=== PATIENT | female | born 1980 | race Caucasian/White ===

== ENCOUNTER 2020-09-20 19:59 | Inpatient (IN) ==
[2020-09-20 20:16] VITALS: BMI 21.2
[2020-09-20] MEDS ORDERED: TORADOL 60 MG VIAL IM ONE (21:13)
[2020-09-20] MEDS ORDERED: ZOFRAN INJ 4 MG VIAL IM ONE (21:13)
[2020-09-20] MEDS ORDERED: LEVSIN/MAALOX/LIDOC VISC PO ONE (21:13)
[2020-09-20] MEDS ORDERED: TORADOL 30 MG VIAL IVP ONE (21:16)
[2020-09-20] MEDS ORDERED: LEVSIN/MAALOX/LIDOC VISC ONE (21:17)
[2020-09-20] MEDS ORDERED: ZOFRAN INJ 4 MG VIAL ONE ×2 (21:17→21:53)
[2020-09-20] MEDS ORDERED: TORADOL 30 MG VIAL ONE (21:17)
[2020-09-20] MEDS ORDERED: ZOFRAN INJ 4 MG VIAL IVP ONE ×2 (21:17→21:49)
[2020-09-20] MEDS ORDERED: PROTONIX INJ 40 MG VIAL IVP ONE (21:50)
[2020-09-20] MEDS ORDERED: NS 1000 ML 1,000 ML ONE (21:53)
[2020-09-20] MEDS ORDERED: PROTONIX INJ 40 MG VIAL ONE (21:53)
[2020-09-20] MEDS ORDERED: NS 1000 ML 1,000 ML IV ONE (22:02)
[2020-09-20 22:10] LABS: BASOPHILS % (AUTO) 0.1 % (0.2-1.0); HEMATOCRIT 46.8 % (36.0-47.0); HEMOGLOBIN 16.2 g/dL (12.0-16.0); LYMPHOCYTES # (AUTO) 0.4 X10^3/uL (1.3-2.9); LYMPHOCYTES % (AUTO) 3.7 % (21.0-51.0); MEAN CORPUSCULAR HEMOGLOBIN 36.1 pg (27.0-34.0); MEAN CORPUSCULAR HGB CONC 34.7 g/dL (33.0-35.0); MEAN CORPUSCULAR VOLUME 104.1 fL (80.0-100.0); MEAN PLATELET VOLUME 8.5 fL (7.4-11.0); MONOCYTES # (AUTO) 0.5 x10^3/uL (0.3-0.8); MONOCYTES % (AUTO) 5.3 % (0.0-13.0); NEUTROPHILS # (AUTO) 9.3 x10^3/uL (2.2-4.8); NEUTROPHILS % (AUTO) 90.9 % (42.0-75.0); PLATELET COUNT 198 X10^3/uL (150.0-450.0); RED BLOOD COUNT 4.49 X10^6/uL (3.5-5.4); RED CELL DISTRIBUTION WIDTH 11.9 % (11.6-16.5); WHITE BLOOD COUNT 10.3 X10^3/uL (3.6-10.0)
[2020-09-20 22:19] LABS: ALANINE AMINOTRANSFERASE 50 Units/L (12-78); ALKALINE PHOSPHATASE 95 Units/L (46-116); AMYLASE 66 Units/L (25-115); ASPARTATE AMINO TRANSFERASE 60 Units/L (15-37); BLOOD UREA NITROGEN 28 mg/dL (7-18); CALCIUM 9.8 mg/dL (8.5-10.1); CHLORIDE 93 mmol/L (98-107); COR NA(FOR HYPERGLY) 134 mmol/L (136-145); CREATININE 1.23 mg/dL (0.55-1.02); LIPASE 430 Units/L (73-393); SODIUM 133 mmol/L (136-145); eGFR NON BLACK RACES 52 (>60)
[2020-09-20 22:30] LABS: CARBON DIOXIDE 9.4 mmol/L (21-32)
[2020-09-20 22:38] LABS: BAND NEUTROPHILS % 1 % (0-10); PLATELET MORPHOLOGY COMMENT NORMAL (NORMAL)
--- NOTE | 2020-09-20 23:12 | DR.HEADACH ---
HPI Time Seen Time Seen by Provider: 09/20/20 21:13 Primary Care Physician Primary Care Physician: KOSTA ERICKSON Complaint/Symptoms Chief Complaint:: PT STATES THAT SHE STARTED SATURDAY WITH A MIGRAINE AND THEN SHE STARTED VOMITING AND HAS BEEN ABLE TO KEEP ANY MEDICATIONS DOWN. PT ALSO STATES THAT HER MUSCLES HURT AND HER BACK HURTS FROM VOMITING. PT STATES THAT HER EYES ARE ALSO SENSITIVE TO LIGHT. DENIES HISTORY OF MIGRAINES. COVID-19 Coronavirus risk:travel/contact w/high risk person: No Has patient experienced Coronavirus symptoms: No Source History Provided: Patient Timing Onset of Chief Complaint: 09/19/20 Location Headache Location: Generalized Severity Headache Severity: Severe PMH PMH Past Medical History: Yes Past Medical History: Anxiety, Depression and Hypertension Past Medical History Comment: NEUROPATHY Past Surgical History: Yes Surgical History: Other Past Surgical History Comment: LUMPECTOMY FROM BILATERAL BREAST Family History History of Family Medical Conditions: Yes Family Medical History: Hypertension Social History Does patient currently use any type of tobacco product: Yes (VAPE) Have you used tobacco products in the last 12 months: Yes (VAPE) Type of Tobacco Use: Smokeless Does any household member use tobacco: Yes Alcohol Use: Occasionally Do you use any recreational Drugs:: No Lives With: Mom and Family Lives Where: Home Travel Risk Coronavirus risk:travel/contact w/high risk person: No Has patient experienced Coronavirus symptoms: No Infectious screening In the last 2 months have you had wt loss of >10#?: NO Have you had fever, night sweats or hemotysis?: No Have you traveled outside the country in the last 6 months?: No Isolation: Standard PE Vital Signs Vitals: Temperature 97.8 F Pulse Rate [Apical] 122 Pulse Rate 125 Respiratory Rate 24 Blood Pressure [Left Arm] 139/97 Blood Pressure 172/113 O2 Sat by Pulse Oximetry 100 COURSE Reevaluation 1st: Unchanged (continues to have N/V and abdominal pain. ) Consultation Called: 23:21 Consultation Comments: Spoke with Dr. Sherman who accepts patient for admission. [facility] Labs Reviewed Laboratory Results Reviewed?: Yes Result Diagrams: 09/20/20 22:00 09/20/20 22:00 Laboratory: WBC 10.3 X10^3/uL (3.6-10.0) H 09/20/20 22:00 RBC 4.49 X10^6/uL (3.5-5.4) 09/20/20 22:00 Hgb 16.2 g/dL (12.0-16.0) H 09/20/20 22:00 Hct 46.8 % (36.0-47.0) 09/20/20 22:00 MCV 104.1 fL (80.0-100.0) H 09/20/20 22:00 MCH 36.1 pg (27.0-34.0) H 09/20/20 22:00 MCHC 34.7 g/dL (33.0-35.0) 09/20/20 22:00 RDW 11.9 % (11.6-16.5) 09/20/20 22:00 Plt Count 198 X10^3/uL (150.0-450.0) 09/20/20 22:00 Plt Count Comment Adequate (ADEQUATE) 09/20/20 22:00 MPV 8.5 fL (7.4-11.0) 09/20/20 22:00 Neut % (Auto) 90.9 % (42.0-75.0) H 09/20/20 22:00 Lymph % (Auto) 3.7 % (21.0-51.0) L 09/20/20 22:00 [place] % (Auto) 5.3 % (0.0-13.0) 09/20/20 22:00 Eos % (Auto) 0.0 % (0.9-2.9) L 09/20/20 22:00 Baso % (Auto) 0.1 % (0.2-1.0) L 09/20/20 22:00 Neut # (Auto) 9.3 x10^3/uL (2.2-4.8) H 09/20/20 22:00 Lymph # (Auto) 0.4 X10^3/uL (1.3-2.9) L 09/20/20 22:00 [place] # (Auto) 0.5 x10^3/uL (0.3-0.8) 09/20/20 22:00 Eos # (Auto) 0.0 x10^3/uL (0.0-0.2) 09/20/20 22:00 Baso # (Auto) 0.0 X10^3/uL (0.0-0.1) 09/20/20 22:00 Absolute Nucleated RBC 0.0 /100WBC 09/20/20 22:00 Total Counted 100 09/20/20 22:00 Neutrophils % (Manual) 86 % (39-76) H 09/20/20 22:00 Band Neutrophils % 1 % (0-10) 09/20/20 22:00 Lymphocytes % (Manual) 9 % (13-43) L 09/20/20 22:00 Monocytes % (Manual) 4 % (4-9) 09/20/20 22:00 Plt Morphology Comment Normal (NORMAL) 09/20/20 22:00 RBC Morphology Normal (NORMAL) 09/20/20 22:00 Sodium 133 mmol/L (136-145) L 09/20/20 22:00 Corrected Sodium 134 mmol/L (136-145) L 09/20/20 22:00 Potassium 5.1 mmol/L (3.5-5.1) 09/20/20 22:00 Chloride 93 mmol/L (98-107) L 09/20/20 22:00 Carbon Dioxide 9.4 mmol/L (21-32) L* 09/20/20 22:00 BUN 28 mg/dL (7-18) H 09/20/20 22:00 Creatinine 1.23 mg/dL (0.55-1.02) H 09/20/20 22:00 Est GFR (MDRD) Af Amer > 60 (>60) 09/20/20 22:00 Est GFR (MDRD) Non-Af 52 (>60) L 09/20/20 22:00 Glucose 138 mg/dL (65-99) H 09/20/20 22:00 Calcium 9.8 mg/dL (8.5-10.1) 09/20/20 22:00 Corrected Calcium TNP 09/20/20 22:00 Total Bilirubin 1.20 mg/dL (0.2-1.0) H 09/20/20 22:00 AST 60 Units/L (15-37) H 09/20/20 22:00 ALT 50 Units/L (12-78) 09/20/20 22:00 Alkaline Phosphatase 95 Units/L (46-116) 09/20/20 22:00 Total Protein 10.0 g/dL (6.4-8.2) H 09/20/20 22:00 Albumin 5.0 g/dL (3.4-5.0) 09/20/20 22:00 Globulin 5.0 g/dL (2.5-4.5) H 09/20/20 22:00 Albumin/Globulin Ratio 1.0 Ratio (1.1-2.1) L 09/20/20 22:00 Amylase 66 Units/L (25-115) 09/20/20 22:00 Lipase 430 Units/L (73-393) H 09/20/20 22:00 XRAY X-ray Results: HISTORY PT STATES THAT SHE STARTED SATURDAY WITH A MIGRAINE AND THEN SHE STARTED VOMITING AND HAS BEEN ABLE TO KEEP ANY MEDICATIONS DOWN STUDY ACUTE ABDOMEN SERIES COMPARISON None available TECHNIQUE AP supine and upright abdominal radiographs with chest radiography, 3 images. FINDINGS Gas and stool in non distended colon. No gross free air. No abnormal calcifications. No acute osseous abnormality. Lungs are clear of focal airspace disease. No cardiomegaly. No pneumothorax. No pleural effusion. IMPRESSION No acute intra-abdominal or intrathoracic abnormality detected. Electronically signed by: Genaro Lima (Sep 20, 2020 23:13:21) Opioid Opioid Risk Tool Age (Josué box if 16-45): Yes History of Preadolescent Sexual Abuse: No Total: 1 Total Score Risk Category: Low Risk Copyright: Antelmo DO predicting aberrant behaviors Diagnosis Discharge Problem: Acute pancreatitis Qualifiers: Pancreatitis type: unspecified pancreatitis type Acute pancreatitis complication: unspecified Qualified Code(s): K85.90 - Acute pancreatitis without necrosis or infection, unspecified
--- NOTE | 2020-09-20 23:15 | RAD ---
HISTORYPT STATES THAT SHE STARTED SATURDAY WITH A MIGRAINE AND THEN SHE STARTED VOMITING AND HAS BEEN ABLE TO KEEP ANY MEDICATIONS DOWNSTUDYACUTE ABDOMEN SERIESCOMPARISONNone availableTECHNIQUEAP supine and upright abdominal radiographs with chest radiography, 3 images.FINDINGSGas and stool in non distended colon.No gross free air.No abnormal calcifications.No acute osseous abnormality.Lungs are clear of focal airspace disease.No cardiomegaly.No pneumothorax.No pleural effusion.IMPRESSIONNo acute intra-abdominal or intrathoracic abnormality detected.Electronically signed by: Genaro Lima (Sep 20, 2020 23:13:21)
[2020-09-20] MEDS ORDERED: MORPHINE SULFATE INJ 2 MG INJ IVP PRN (23:28)
[2020-09-20 23:48] LABS: BILIRUBIN,URINE 1+ (NEGATIVE); BLOOD/HEMOGLOBIN,URINE 4+ (NEGATIVE); GLUCOSE, URINE NEGATIVE (NEGATIVE); KETONES,URINE 4+ (NEGATIVE); LEUKOCYTE ESTERASE ,URINE NEGATIVE (NEGATIVE); NITRITES,URINE NEGATIVE (NEGATIVE); PROTEIN,URINE 3+ (NEGATIVE); UROBILINOGEN,URINE 1+ (NORMAL)
[2020-09-20 23:54] LABS: APPEARANCE,URINE CLEAR (CLEAR); BACTERIA,URINE TRACE /HPF (NEGATIVE); COLOR,URINE DARK YELLOW (YELLOW); HYALINE CASTS, URINE FEW /LPF (NEGATIVE); RBC,URINE 20-30 /HPF (0-3); SQUAMOUS EPITHELIAL CELL,UR FEW /HPF (NEGATIVE)
[2020-09-21] MEDS ORDERED: DILAUDID INJ ONE ×2 (00:03→06:23)
[2020-09-21] MEDS ORDERED: NS 1000 ML 1,000 ML ONE ×2 (00:03→10:00)
[2020-09-21] MEDS: NS 1000 ML 1,000 ML IV SCH ×3 (00:10→20:26)
[2020-09-21] MEDS: DILAUDID INJ IVP PRN ×6 (00:11→20:24)
[2020-09-21] MEDS ORDERED: ZOFRAN INJ 4 MG VIAL ONE ×2 (02:32→07:51)
[2020-09-21] MEDS: ZOFRAN INJ 4 MG VIAL IVP PRN ×5 (02:39→22:36)
[2020-09-21] MEDS ORDERED: PHENERGAN INJ 25 MG IM ONE ×2 (02:39→02:41)
--- NOTE | 2020-09-21 03:33 | CT ---
PROCEDURE: CT Abdomen and Pelvis with Contrast .HISTORY: ACUTE PANCREATITIS .TECHNIQUE: Axial images were performed through the abdomen and pelvis with the administration of IV contrast with multiplanar reformations . Oral contrast was administered. Dose reduction techniques including Automated Exposure Control (AEC) and adjustment of mA and kV were utilized .COMPARISON: 11/11/2019.TECHNICAL QUALITY: Satisfactory .FINDINGS:Clear lung bases.Liver, spleen, adrenals, and pancreas show no significant abnormality. No evidence of acute pancreatitis, pseudocyst, or dilated pancreatic duct.Normal enhancement of the kidneys with no mass or obstruction.Normal biliary tract.No abdominal ascites or pneumoperitoneum.Mild atherosclerosis aorta.No lymphadenopathy.No bowel obstruction or inflammation and normal appendix right lower quadrant.Pelvis shows no masses or free fluid and unremarkable reproductive organs and urinary bladder.No acute bony abnormality.IMPRESSION:1. Normal pancreas.2. No other significant abnormality identified.Electronically signed by: Talib Marcum (Sep 21, 2020 03:30:58)
[2020-09-21] MEDS ORDERED: PROTONIX INJ 40 MG VIAL ONE (07:51)
[2020-09-21] MEDS: PROTONIX INJ 40 MG VIAL IVP SCH (08:49)
[2020-09-21 08:59] LABS: BASOPHILS % (AUTO) 0.4 % (0.2-1.0); EOSINOPHILS % (AUTO) 0.7 % (0.9-2.9); HEMOGLOBIN 14.1 g/dL (12.0-16.0); LYMPHOCYTES # (AUTO) 1.1 X10^3/uL (1.3-2.9); LYMPHOCYTES % (AUTO) 17.1 % (21.0-51.0); MEAN CORPUSCULAR HEMOGLOBIN 35.5 pg (27.0-34.0); MEAN CORPUSCULAR HGB CONC 34.5 g/dL (33.0-35.0); MEAN PLATELET VOLUME 8.4 fL (7.4-11.0); MONOCYTES # (AUTO) 0.8 x10^3/uL (0.3-0.8); MONOCYTES % (AUTO) 11.7 % (0.0-13.0); NEUTROPHILS # (AUTO) 4.5 x10^3/uL (2.2-4.8); NEUTROPHILS % (AUTO) 70.1 % (42.0-75.0); PLATELET COUNT 137 X10^3/uL (150.0-450.0); RED BLOOD COUNT 3.97 X10^6/uL (3.5-5.4); RED CELL DISTRIBUTION WIDTH 12.1 % (11.6-16.5); WHITE BLOOD COUNT 6.5 X10^3/uL (3.6-10.0)
[2020-09-21 09:09] LABS: ALANINE AMINOTRANSFERASE 37 Units/L (12-78); ALBUMIN 4.2 g/dL (3.4-5.0); ALKALINE PHOSPHATASE 77 Units/L (46-116); ASPARTATE AMINO TRANSFERASE 45 Units/L (15-37); BLOOD UREA NITROGEN 20 mg/dL (7-18); CARBON DIOXIDE 16.9 mmol/L (21-32); CHLORIDE 100 mmol/L (98-107); CREATININE 0.87 mg/dL (0.55-1.02); MAGNESIUM 1.8 mg/dL (1.7-2.9); SODIUM 136 mmol/L (136-145); TOTAL PROTEIN 8.4 g/dL (6.4-8.2); eGFR NON BLACK RACES > 60 (>60)
--- NOTE | 2020-09-21 09:52 | DR.H&P ---
H&P History & Physical for Day of: H&P Date: 09/21/20 Chief Complaint Chief Complaint: abdominal pain, nausea, vomiting Allergies Allergies Allergy/AdvReac Type Severity Reaction Status Date / Time No Known Drug Allergies Allergy Verified 11/11/19 17:33 History of Present Illness History of Present Illness: Ms. Abdi is a 40 y/o female with a PMH of neuropathy presented with intractable nausea, vomiting and abdominal pain. Her Sx started Saturday and continued to worsen over the day. She reports not being able to keep anything down and vomiting everything including water. She also has diffuse abdominal pain with radiation to the back. She reports having 3-4 alcoholic drinks on Saturday. She recently had U/S for her gallbladder done as outpatient and was told it was normal. She has had pancreatitis in the past and usually triggered by alcohol. Denies fever or chills. She reports having gastritis in the past but never had EGD or saw GI for anything. Denies sick contact at home or any known exposure. ED work-up Labs: WBC 10.3 Plt 168 Lipase elevated, CO2: 9.4 K: 5.1 Cr: 1.23 COVID-19 (-) AST 60 ALT 50 CTAP: normal pancreas, no acute process noted UA: negative for infection Patient was started on IV hydration, PPI, anti-emetics and pain control. She was kept NPO overnight. She states she still feels about the same, abdominal pain is worse when the pain medicine wears off. She would like to try some water or sprite. She has not had any vomiting overnight. Denies diarrhea. Plan: repeat CBC, CMP, Mag. Increase NS to 150cc/hr, continue PPI, zofran. Will add GI cocktail. Start clear liquid diet, advance as tolerated. Continue pain control with Dilaudid and morphine. Monitor AM labs. Replace electrolytes as needed. Past Medical History Past Medical History: Anxiety, Depression and Hypertension Past Surgical History Surgical History: Other Family History Family Medical History: Hypertension Social History Does patient currently use any type of tobacco product: Yes (vape) Have you used tobacco products in the last 12 months: Yes Type of Tobacco Use: Smokeless Does any household member use tobacco: Yes Alcohol Use: Heavy Drug Use: None Prescription drug monitoring program results: PDMP reviewed and no concerns identified Medications Home Medications: No Known Drug Allergies Allergy (Verified 11/11/19 17:33) CONTINUE taking the following medications gabapentin 300 mg PO TID 09/21/20 [History] Labs Result Diagrams: 09/21/20 08:41 09/21/20 08:41 Labs: Laboratory WBC 6.5 X10^3/uL (3.6-10.0) 09/21/20 08:41 RBC 3.97 X10^6/uL (3.5-5.4) 09/21/20 08:41 Hgb 14.1 g/dL (12.0-16.0) D 09/21/20 08:41 Hct 41.0 % (36.0-47.0) 09/21/20 08:41 MCV 103.0 fL (80.0-100.0) H 09/21/20 08:41 MCH 35.5 pg (27.0-34.0) H 09/21/20 08:41 MCHC 34.5 g/dL (33.0-35.0) 09/21/20 08:41 RDW 12.1 % (11.6-16.5) 09/21/20 08:41 Plt Count 137 X10^3/uL (150.0-450.0) L 09/21/20 08:41 Plt Count Comment Adequate (ADEQUATE) 09/20/20 22:00 MPV 8.4 fL (7.4-11.0) 09/21/20 08:41 Neut % (Auto) 70.1 % (42.0-75.0) 09/21/20 08:41 Lymph % (Auto) 17.1 % (21.0-51.0) L 09/21/20 08:41 [place] % (Auto) 11.7 % (0.0-13.0) 09/21/20 08:41 Eos % (Auto) 0.7 % (0.9-2.9) L 09/21/20 08:41 Baso % (Auto) 0.4 % (0.2-1.0) 09/21/20 08:41 Neut # (Auto) 4.5 x10^3/uL (2.2-4.8) 09/21/20 08:41 Lymph # (Auto) 1.1 X10^3/uL (1.3-2.9) L 09/21/20 08:41 [place] # (Auto) 0.8 x10^3/uL (0.3-0.8) 09/21/20 08:41 Eos # (Auto) 0.0 x10^3/uL (0.0-0.2) 09/21/20 08:41 Baso # (Auto) 0.0 X10^3/uL (0.0-0.1) 09/21/20 08:41 Absolute Nucleated RBC 0.1 /100WBC 09/21/20 08:41 Total Counted 100 09/20/20 22:00 Neutrophils % (Manual) 86 % (39-76) H 09/20/20 22:00 Band Neutrophils % 1 % (0-10) 09/20/20 22:00 Lymphocytes % (Manual) 9 % (13-43) L 09/20/20 22:00 Monocytes % (Manual) 4 % (4-9) 09/20/20 22:00 Plt Morphology Comment Normal (NORMAL) 09/20/20 22:00 RBC Morphology Normal (NORMAL) 09/20/20 22:00 Sodium 136 mmol/L (136-145) 09/21/20 08:41 Corrected Sodium TNP 09/21/20 08:41 Potassium 4.1 mmol/L (3.5-5.1) 09/21/20 08:41 Chloride 100 mmol/L (98-107) 09/21/20 08:41 Carbon Dioxide 16.9 mmol/L (21-32) L 09/21/20 08:41 BUN 20 mg/dL (7-18) H 09/21/20 08:41 Creatinine 0.87 mg/dL (0.55-1.02) 09/21/20 08:41 Est GFR (MDRD) Af Amer > 60 (>60) 09/21/20 08:41 Est GFR (MDRD) Non-Af > 60 (>60) 09/21/20 08:41 Glucose 99 mg/dL (65-99) 09/21/20 08:41 Calcium 9.0 mg/dL (8.5-10.1) 09/21/20 08:41 Corrected Calcium TNP 09/21/20 08:41 Magnesium 1.8 mg/dL (1.7-2.9) 09/21/20 08:41 Total Bilirubin 0.90 mg/dL (0.2-1.0) 09/21/20 08:41 AST 45 Units/L (15-37) H 09/21/20 08:41 ALT 37 Units/L (12-78) 09/21/20 08:41 Alkaline Phosphatase 77 Units/L (46-116) 09/21/20 08:41 Total Protein 8.4 g/dL (6.4-8.2) H 09/21/20 08:41 Albumin 4.2 g/dL (3.4-5.0) 09/21/20 08:41 Globulin 4.2 g/dL (2.5-4.5) 09/21/20 08:41 Albumin/Globulin Ratio 1.0 Ratio (1.1-2.1) L 09/21/20 08:41 Amylase 66 Units/L (25-115) 09/20/20 22:00 Lipase 430 Units/L (73-393) H 09/20/20 22:00 Specimen Type Clean catch urine 09/20/20 23:38 Urine Color Dark yellow (YELLOW) 09/20/20 23:38 Urine Appearance Clear (CLEAR) 09/20/20 23:38 Urine pH 6.0 (5.0 - 8.0) 09/20/20 23:38 Ur Specific [place] 1.020 (1.000-1.030) 09/20/20 23:38 Urine Protein 3+ (NEGATIVE) 09/20/20 23:38 Urine Glucose (UA) Negative (NEGATIVE) 09/20/20 23:38 Urine Ketones 4+ (NEGATIVE) 09/20/20 23:38 Urine Occult Blood 4+ (NEGATIVE) 09/20/20 23:38 Urine Nitrite Negative (NEGATIVE) 09/20/20 23:38 Urine Bilirubin 1+ (NEGATIVE) 09/20/20 23:38 Urine Urobilinogen 1+ (NORMAL) 09/20/20 23:38 Ur Leukocyte Esterase Negative (NEGATIVE) 09/20/20 23:38 Urine RBC 20-30 /HPF (0-3) A 09/20/20 23:38 Urine WBC None seen /HPF (0-5) 09/20/20 23:38 Ur Squamous Epith Cells Few /HPF (NEGATIVE) 09/20/20 23:38 Urine Bacteria Trace /HPF (NEGATIVE) 09/20/20 23:38 Hyaline Casts Few /LPF (NEGATIVE) 09/20/20 23:38 Ur Culture Indicated? No/not indicated 09/20/20 23:38 SARS CoV-2 RNA Rapid JOHN Negative (NEGATIVE) 09/21/20 00:15 Review of Systems Constitutional: Weakness Eyes: No Symptoms Reported ENT: No Symptoms Reported Respiratory: No Symptoms Reported Cardiovascular: No Symptoms Reported Gastrointestinal: Nausea, Vomiting and Abdominal Pain Genitourinary: No Symptoms Reported Musculoskeletal: Back Pain Skin: No Symptoms Reported Neurological: No Symptoms Reported Physical Exam Vital Signs: Temperature 98.3 F Pulse Rate [Apical] 104 Pulse Rate 125 Respiratory Rate 20 Blood Pressure [Left Arm] 149/98 Blood Pressure 172/113 O2 Sat by Pulse Oximetry 100 Oriented: Normal Eyes: Normal Ear: Normal Nose: Normal Throat: Normal Respiratory: Clear Throughout Cardiovascular: Normal Auscultation: Bowel Sounds: Normal Tenderness: Diffuse, Epigastric, Periumbilical and Moderate Skin: Normal Musculoskeletal: Normal Psychiatric: Anxiety Mood Description: Appropriate Affect: Anxious Speech Pattern: Clear and Appropriate Assessment/Plan (1) Acute pancreatitis: Qualifiers: Acute pancreatitis complication: unspecified Pancreatitis type: unspecified pancreatitis type Qualified Code(s): K85.90 - Acute pancreatitis without necrosis or infection, unspecified Status: Acute (2) Nausea & vomiting: Qualifiers: Vomiting Intractability: non-intractable Vomiting type: unspecified Qualified Code(s): R11.2 - Nausea with vomiting, unspecified Status: Acute (3) Abdominal pain: Qualifiers: Abdominal location: right upper quadrant Qualified Code(s): R10.11 - Right upper quadrant pain Status: Acute (4) Metabolic acidosis: Status: Acute (5) Neuropathy: Status: Acute Review H&P Reviewed: Yes Patient was examined?: Yes
[2020-09-21] MEDS: NEURONTIN CAP 300 MG PO SCH ×3 (09:59→21:29)
[2020-09-21] MEDS: LEVSIN/MAALOX/LIDOC VISC PO PRN ×2 (11:31→20:21)
[2020-09-21] MEDS: FOLIC ACID TAB 1 MG PO SCH (15:15)
[2020-09-21] MEDS: NICOTINE PATCH TD SCH (21:50)
[2020-09-22] MEDS: DILAUDID INJ IVP PRN ×6 (00:07→23:10)
[2020-09-22] MEDS: ZOFRAN INJ 4 MG VIAL IVP PRN (04:07)
[2020-09-22] MEDS: NS 1000 ML 1,000 ML IV SCH ×4 (05:30→20:46)
[2020-09-22] MEDS: NEURONTIN CAP 300 MG PO SCH ×3 (05:31→21:00)
[2020-09-22 05:39] LABS: BASOPHILS % (AUTO) 0.3 % (0.2-1.0); EOSINOPHILS # (AUTO) 0.1 x10^3/uL (0.0-0.2); EOSINOPHILS % (AUTO) 2.7 % (0.9-2.9); HEMATOCRIT 36.1 % (36.0-47.0); HEMOGLOBIN 12.8 g/dL (12.0-16.0); LYMPHOCYTES # (AUTO) 1.4 X10^3/uL (1.3-2.9); LYMPHOCYTES % (AUTO) 27.5 % (21.0-51.0); MEAN CORPUSCULAR HGB CONC 35.3 g/dL (33.0-35.0); MEAN CORPUSCULAR VOLUME 101.9 fL (80.0-100.0); MEAN PLATELET VOLUME 8.9 fL (7.4-11.0); MONOCYTES # (AUTO) 0.5 x10^3/uL (0.3-0.8); MONOCYTES % (AUTO) 9.6 % (0.0-13.0); NEUTROPHILS % (AUTO) 59.9 % (42.0-75.0); PLATELET COUNT 109 X10^3/uL (150.0-450.0); RED BLOOD COUNT 3.54 X10^6/uL (3.5-5.4)
[2020-09-22 05:44] LABS: ALANINE AMINOTRANSFERASE 34 Units/L (12-78); ALBUMIN 3.8 g/dL (3.4-5.0); ALKALINE PHOSPHATASE 67 Units/L (46-116); ASPARTATE AMINO TRANSFERASE 50 Units/L (15-37); BLOOD UREA NITROGEN 14 mg/dL (7-18); CALCIUM 8.9 mg/dL (8.5-10.1); CARBON DIOXIDE 22.9 mmol/L (21-32); CHLORIDE 103 mmol/L (98-107); CREATININE 0.57 mg/dL (0.55-1.02); SODIUM 140 mmol/L (136-145); TOTAL PROTEIN 7.4 g/dL (6.4-8.2); eGFR NON BLACK RACES > 60 (>60)
[2020-09-22] MEDS ORDERED: DIFLUCAN PO SCH (09:00)
[2020-09-22] MEDS: FOLIC ACID TAB 1 MG PO SCH (09:25)
[2020-09-22] MEDS: PHENERGAN TAB 25 MG PO PRN ×2 (09:25→20:43)
[2020-09-22] MEDS: PEPCID 20 MG IV PREMIX* 20 MG/50 ML BAG IV SCH (09:25)
[2020-09-22] MEDS: PROTONIX INJ 40 MG VIAL IVP SCH (09:25)
[2020-09-22] MEDS: NICOTINE PATCH TD SCH (09:30)
[2020-09-22] MEDS: LEVSIN/MAALOX/LIDOC VISC PO PRN ×3 (09:32→23:09)
--- NOTE | 2020-09-22 10:16 | PCM.PROG ---
Progress Note Progress Note for Day of Date of Exam: 09/22/20 Subjective Subjective: Patient seen at bedside, no overnight events. She states she was able to drink some liquids yesterday but not much. She still had an episode of vomiting. She reports burning pain with eating in her stomach. Denies diarrhea. She states her abdominal pain is slightly better today. She would like to try a soft diet and see how she does. Denies fever or chills. Labs: K: 3.4 BUN/Cr: 14/0.57 CO2: 22 ASTS 50 ALT 34 Plt 109 Plan: will start Pepcid, add carafate and Magic mouthwash. Change Zofran to Phenergan. Start Diflucan for thrush. Replace K as per protocol. Start soft diet, advance as tolerated. Continue hydration. Continue pain control. Continue PPI and GI cocktail. Monitor AM labs and imaging. Past Medical Family Social History Past Med/Fam/Surg Hx: No changes since H&P Allergies: Allergies No Known Drug Allergies Allergy (Verified 11/11/19 17:33) Review of Systems ROS: No change since H&P Vital Signs and I&O's Vital Signs: Temperature 98.2 F Pulse Rate [Apical] 91 Pulse Rate 125 Respiratory Rate 20 Blood Pressure [Left Arm] 150/90 Blood Pressure 172/113 O2 Sat by Pulse Oximetry 100 Intake and Output: Intake & Output 09/19/20 09/20/20 09/21/20 09/22/20 23:59 23:59 23:59 23:59 Intake Total 2750 / 2750 50 / 50 Balance 2750 / 2750 50 / 50 Physical Exam Oriented: Normal Eyes: Normal Ear: Normal Nose: Normal Throat: Other (thrush noted on the tongue ) Respiratory: Normal Cardiovascular: Normal Auscultation: Bowel Sounds: Normal Tenderness: Diffuse, Epigastric, Periumbilical and Moderate Skin: Normal Musculoskeletal: Normal Psychiatric: Anxiety Mood Description: Appropriate Affect: Anxious Speech Pattern: Clear and Appropriate Laboratory and Diagnostics Result Diagrams: 09/22/20 04:22 09/22/20 04:22 Labs: Laboratory WBC 5.0 X10^3/uL (3.6-10.0) 09/22/20 04:22 RBC 3.54 X10^6/uL (3.5-5.4) 09/22/20 04:22 Hgb 12.8 g/dL (12.0-16.0) 09/22/20 04:22 Hct 36.1 % (36.0-47.0) 09/22/20 04:22 MCV 101.9 fL (80.0-100.0) H 09/22/20 04:22 MCH 36.0 pg (27.0-34.0) H 09/22/20 04:22 MCHC 35.3 g/dL (33.0-35.0) H 09/22/20 04:22 RDW 12.0 % (11.6-16.5) 09/22/20 04:22 Plt Count 109 X10^3/uL (150.0-450.0) L 09/22/20 04:22 Plt Count Comment Adequate (ADEQUATE) 09/20/20 22:00 MPV 8.9 fL (7.4-11.0) 09/22/20 04:22 Neut % (Auto) 59.9 % (42.0-75.0) 09/22/20 04:22 Lymph % (Auto) 27.5 % (21.0-51.0) 09/22/20 04:22 [place] % (Auto) 9.6 % (0.0-13.0) 09/22/20 04:22 Eos % (Auto) 2.7 % (0.9-2.9) 09/22/20 04:22 Baso % (Auto) 0.3 % (0.2-1.0) 09/22/20 04:22 Neut # (Auto) 3.0 x10^3/uL (2.2-4.8) 09/22/20 04:22 Lymph # (Auto) 1.4 X10^3/uL (1.3-2.9) 09/22/20 04:22 [place] # (Auto) 0.5 x10^3/uL (0.3-0.8) 09/22/20 04:22 Eos # (Auto) 0.1 x10^3/uL (0.0-0.2) 09/22/20 04:22 Baso # (Auto) 0.0 X10^3/uL (0.0-0.1) 09/22/20 04:22 Absolute Nucleated RBC 0.0 /100WBC 09/22/20 04:22 Total Counted 100 09/20/20 22:00 Neutrophils % (Manual) 86 % (39-76) H 09/20/20 22:00 Band Neutrophils % 1 % (0-10) 09/20/20 22:00 Lymphocytes % (Manual) 9 % (13-43) L 09/20/20 22:00 Monocytes % (Manual) 4 % (4-9) 09/20/20 22:00 Plt Morphology Comment Normal (NORMAL) 09/20/20 22:00 RBC Morphology Normal (NORMAL) 09/20/20 22:00 Sodium 140 mmol/L (136-145) 09/22/20 04:22 Corrected Sodium TNP 09/22/20 04:22 Potassium 3.4 mmol/L (3.5-5.1) L 09/22/20 04:22 Chloride 103 mmol/L (98-107) 09/22/20 04:22 Carbon Dioxide 22.9 mmol/L (21-32) 09/22/20 04:22 BUN 14 mg/dL (7-18) 09/22/20 04:22 Creatinine 0.57 mg/dL (0.55-1.02) 09/22/20 04:22 Est GFR (MDRD) Af Amer > 60 (>60) 09/22/20 04:22 Est GFR (MDRD) Non-Af > 60 (>60) 09/22/20 04:22 Glucose 86 mg/dL (65-99) 09/22/20 04:22 Calcium 8.9 mg/dL (8.5-10.1) 09/22/20 04:22 Corrected Calcium TNP 09/22/20 04:22 Magnesium 1.8 mg/dL (1.7-2.9) 09/21/20 08:41 Iron 146 ug/dL (50-175) 09/21/20 08:41 Transferrin 237 mg/dL (202-364) 09/21/20 08:41 Ferritin 1270 ng/mL (8-252) H 09/21/20 08:41 Total Bilirubin 0.80 mg/dL (0.2-1.0) 09/22/20 04:22 AST 50 Units/L (15-37) H 09/22/20 04:22 ALT 34 Units/L (12-78) 09/22/20 04:22 Alkaline Phosphatase 67 Units/L (46-116) 09/22/20 04:22 Total Protein 7.4 g/dL (6.4-8.2) 09/22/20 04:22 Albumin 3.8 g/dL (3.4-5.0) 09/22/20 04:22 Globulin 3.6 g/dL (2.5-4.5) 09/22/20 04:22 Albumin/Globulin Ratio 1.1 Ratio (1.1-2.1) 09/22/20 04:22 Amylase 66 Units/L (25-115) 09/20/20 22:00 Lipase 430 Units/L (73-393) H 09/20/20 22:00 Vitamin B12 368 pg/mL (193-986) 09/21/20 08:41 Folate 7.3 ng/mL (>8.6) L 09/21/20 08:41 Specimen Type Clean catch urine 09/20/20 23:38 Urine Color Dark yellow (YELLOW) 09/20/20 23:38 Urine Appearance Clear (CLEAR) 09/20/20 23:38 Urine pH 6.0 (5.0 - 8.0) 09/20/20 23:38 Ur Specific [place] 1.020 (1.000-1.030) 09/20/20 23:38 Urine Protein 3+ (NEGATIVE) 09/20/20 23:38 Urine Glucose (UA) Negative (NEGATIVE) 09/20/20 23:38 Urine Ketones 4+ (NEGATIVE) 09/20/20 23:38 Urine Occult Blood 4+ (NEGATIVE) 09/20/20 23:38 Urine Nitrite Negative (NEGATIVE) 09/20/20 23:38 Urine Bilirubin 1+ (NEGATIVE) 09/20/20 23:38 Urine Urobilinogen 1+ (NORMAL) 09/20/20 23:38 Ur Leukocyte Esterase Negative (NEGATIVE) 09/20/20 23:38 Urine RBC 20-30 /HPF (0-3) A 09/20/20 23:38 Urine WBC None seen /HPF (0-5) 09/20/20 23:38 Ur Squamous Epith Cells Few /HPF (NEGATIVE) 09/20/20 23:38 Urine Bacteria Trace /HPF (NEGATIVE) 09/20/20 23:38 Hyaline Casts Few /LPF (NEGATIVE) 09/20/20 23:38 Ur Culture Indicated? No/not indicated 09/20/20 23:38 SARS CoV-2 RNA Rapid JOHN Negative (NEGATIVE) 09/21/20 00:15 Plan (1) Acute pancreatitis: Status: Acute Qualifiers: Acute pancreatitis complication: unspecified Pancreatitis type: unspecified pancreatitis type Qualified Code(s): K85.90 - Acute pancreatitis without necrosis or infection, unspecified (2) Nausea & vomiting: Status: Acute Qualifiers: Vomiting Intractability: non-intractable Vomiting type: unspecified Qualified Code(s): R11.2 - Nausea with vomiting, unspecified (3) Abdominal pain: Status: Acute Qualifiers: Abdominal location: right upper quadrant Qualified Code(s): R10.11 - Right upper quadrant pain (4) Metabolic acidosis: Status: Acute (5) Neuropathy: Status: Acute (6) Hypokalemia: Status: Acute (7) Thrombocytopenia: Status: Acute
[2020-09-22] MEDS ORDERED: POTASSIUM CHLORIDE LIQ 20 MEQ UDC PO PRN (10:57)
[2020-09-22] MEDS ORDERED: POTASSIUM CHL 60 MEQ/NS 0.45% 500 ML IV PRN (10:57)
[2020-09-22] MEDS ORDERED: KLOR-CON PO PRN (10:57)
[2020-09-22] MEDS ORDERED: MICRO K EXTEN CAP 10 MEQ PO PRN (10:57)
[2020-09-22] MEDS ORDERED: POTASSIUM CHL 40 MEQ/NS 0.45% 500 ML IV PRN (10:57)
[2020-09-22] MEDS ORDERED: K-DUR TAB 20 MEQ PO PRN (10:57)
[2020-09-22] MEDS: CARAFATE ORAL SUSP PO SCH ×3 (14:00→20:36)
[2020-09-22] MEDS ORDERED: NYSTATIN SUSP MT PRN (14:23)
[2020-09-22] MEDS: MAGIC MOUTHWASH MT PRN (20:44)
[2020-09-22] MEDS ORDERED: APRESOLINE INJ 20 MG VIAL IVP PRN (21:18)
[2020-09-22] MEDS ORDERED: APRESOLINE INJ 20 MG VIAL ONE (21:23)
[2020-09-23] MEDS: DILAUDID INJ IVP PRN ×3 (02:56→10:40)
[2020-09-23] MEDS: NS 1000 ML 1,000 ML IV SCH ×4 (02:56→21:10)
[2020-09-23 04:48] LABS: BASOPHILS % (AUTO) 0.3 % (0.2-1.0); EOSINOPHILS # (AUTO) 0.1 x10^3/uL (0.0-0.2); HEMATOCRIT 35.4 % (36.0-47.0); HEMOGLOBIN 12.3 g/dL (12.0-16.0); LYMPHOCYTES # (AUTO) 1.2 X10^3/uL (1.3-2.9); LYMPHOCYTES % (AUTO) 35.2 % (21.0-51.0); MEAN CORPUSCULAR HEMOGLOBIN 35.5 pg (27.0-34.0); MEAN CORPUSCULAR HGB CONC 34.8 g/dL (33.0-35.0); MEAN CORPUSCULAR VOLUME 101.8 fL (80.0-100.0); MEAN PLATELET VOLUME 9.1 fL (7.4-11.0); MONOCYTES # (AUTO) 0.3 x10^3/uL (0.3-0.8); MONOCYTES % (AUTO) 9.3 % (0.0-13.0); NEUTROPHILS # (AUTO) 1.8 x10^3/uL (2.2-4.8); NEUTROPHILS % (AUTO) 52.2 % (42.0-75.0); PLATELET COUNT 92 X10^3/uL (150.0-450.0); RED BLOOD COUNT 3.48 X10^6/uL (3.5-5.4); WHITE BLOOD COUNT 3.4 X10^3/uL (3.6-10.0)
[2020-09-23 05:02] LABS: ALANINE AMINOTRANSFERASE 33 Units/L (12-78); ALBUMIN 3.2 g/dL (3.4-5.0); ALKALINE PHOSPHATASE 67 Units/L (46-116); ASPARTATE AMINO TRANSFERASE 47 Units/L (15-37); BLOOD UREA NITROGEN 7 mg/dL (7-18); CALCIUM 8.6 mg/dL (8.5-10.1); CARBON DIOXIDE 26.4 mmol/L (21-32); CHLORIDE 105 mmol/L (98-107); COR CA(FOR HYPOALB) 9.2 mg/dL (8.5-10.1); CREATININE 0.46 mg/dL (0.55-1.02); SODIUM 140 mmol/L (136-145); TOTAL PROTEIN 6.7 g/dL (6.4-8.2); eGFR NON BLACK RACES > 60 (>60)
[2020-09-23] MEDS: K-RIDER 10 MEQ/NS 100 ML 10 MEQ/100 ML BAG IV PRN ×6 (05:36→20:52)
[2020-09-23] MEDS: NEURONTIN CAP 300 MG PO SCH ×3 (05:37→21:11)
[2020-09-23] MEDS: CARAFATE ORAL SUSP PO SCH ×4 (05:37→21:10)
[2020-09-23] MEDS ORDERED: TORADOL 15 MG VIAL IVP PRN (08:23)
[2020-09-23] MEDS: FOLIC ACID TAB 1 MG PO SCH (08:45)
[2020-09-23] MEDS ORDERED: NS 1000 ML 1,000 ML ONE (09:06)
[2020-09-23] MEDS ORDERED: DIPRIVAN VIAL 20 ML ONE (09:16)
[2020-09-23] MEDS ORDERED: NORMODYNE INJ 20 MG VIAL ONE (09:23)
[2020-09-23] MEDS ORDERED: ZESTRIL TAB 20 MG ONE (09:46)
[2020-09-23] MEDS: PEPCID 20 MG IV PREMIX* 20 MG/50 ML BAG IV SCH (09:58)
[2020-09-23] MEDS: NICOTINE PATCH TD SCH (09:58)
[2020-09-23] MEDS: DIFLUCAN 200 MG IV PREMIX* 200 MG/100 ML BAG IV SCH (09:58)
[2020-09-23] MEDS: ZESTRIL TAB 20 MG PO SCH (09:58)
[2020-09-23] MEDS: PROTONIX INJ 40 MG VIAL IVP SCH ×3 (09:59→21:50)
[2020-09-23] MEDS: APRESOLINE INJ 20 MG VIAL IVP PRN (09:59)
[2020-09-23] MEDS: MAGIC MOUTHWASH MT PRN (10:06)
[2020-09-23] MEDS: PHENERGAN TAB 25 MG PO PRN (10:07)
--- NOTE | 2020-09-23 10:20 | PCM.PROG ---
Progress Note Progress Note for Day of Date of Exam: 09/23/20 Subjective Subjective: Patient seen at bedside, no acute events overnight. Patient did have elevated BP overnight, received one dose of IV hydralazine. Patient continues to have severe pain with swallowing. She states anything she eats or drinks, its sharp burning pain. She states she wants to eat but it's painful. She reports nausea, no vomiting or diarrhea. She states her abdominal pain is slightly better. She states the medicines are not helping much with the burning pain. Labs: K: 3.0 BUN/Cr: 7/0.46 CO2: 26.4 34 Plt 92 Plan: will consult Dr. Justice for possible EGD today, change to NPO. Patient has not eaten anything this morning. Continue PPI, pepcid and carafate. Continue hydration. Continue IV hydralazine for BP control while NPO. Add lisinopril 20 mg daily. Replace K as per protocol. Monitor AM labs and imaging. Past Medical Family Social History Past Med/Fam/Surg Hx: No changes since H&P and Changes noted (describe) Allergies: Allergies No Known Drug Allergies Allergy (Verified 11/11/19 17:33) Review of Systems ROS: No change since H&P Vital Signs and I&O's Vital Signs: Temperature 98.3 F Pulse Rate [Apical] 93 Pulse Rate 125 Respiratory Rate 18 Blood Pressure [Left Arm] 172/110 Blood Pressure 172/113 O2 Sat by Pulse Oximetry 99 Intake and Output: Intake & Output 09/20/20 09/21/20 09/22/20 09/23/20 23:59 23:59 23:59 23:59 Intake Total 2750 / 2750 1476 / 1476 1121 / 1121 Balance 2750 / 2750 1476 / 1476 1121 / 1121 Physical Exam Oriented: Normal Eyes: Normal Ear: Normal Nose: Normal Throat: Other (thrush noted on the tongue ) Respiratory: Normal Cardiovascular: Normal Auscultation: Bowel Sounds: Normal Tenderness: Diffuse, Epigastric, Periumbilical and Mild Skin: Normal Musculoskeletal: Normal Psychiatric: Anxiety Mood Description: Appropriate Affect: Anxious Speech Pattern: Clear and Appropriate Laboratory and Diagnostics Result Diagrams: 09/23/20 03:40 09/23/20 03:40 Labs: Laboratory WBC 3.4 X10^3/uL (3.6-10.0) L 09/23/20 03:40 RBC 3.48 X10^6/uL (3.5-5.4) L 09/23/20 03:40 Hgb 12.3 g/dL (12.0-16.0) 09/23/20 03:40 Hct 35.4 % (36.0-47.0) L 09/23/20 03:40 MCV 101.8 fL (80.0-100.0) H 09/23/20 03:40 MCH 35.5 pg (27.0-34.0) H 09/23/20 03:40 MCHC 34.8 g/dL (33.0-35.0) 09/23/20 03:40 RDW 12.0 % (11.6-16.5) 09/23/20 03:40 Plt Count 92 X10^3/uL (150.0-450.0) L 09/23/20 03:40 Plt Count Comment Adequate (ADEQUATE) 09/20/20 22:00 MPV 9.1 fL (7.4-11.0) 09/23/20 03:40 Neut % (Auto) 52.2 % (42.0-75.0) 09/23/20 03:40 Lymph % (Auto) 35.2 % (21.0-51.0) 09/23/20 03:40 [place] % (Auto) 9.3 % (0.0-13.0) 09/23/20 03:40 Eos % (Auto) 3.0 % (0.9-2.9) H 09/23/20 03:40 Baso % (Auto) 0.3 % (0.2-1.0) 09/23/20 03:40 Neut # (Auto) 1.8 x10^3/uL (2.2-4.8) L 09/23/20 03:40 Lymph # (Auto) 1.2 X10^3/uL (1.3-2.9) L 09/23/20 03:40 [place] # (Auto) 0.3 x10^3/uL (0.3-0.8) 09/23/20 03:40 Eos # (Auto) 0.1 x10^3/uL (0.0-0.2) 09/23/20 03:40 Baso # (Auto) 0.0 X10^3/uL (0.0-0.1) 09/23/20 03:40 Absolute Nucleated RBC 0.0 /100WBC 09/23/20 03:40 Total Counted 100 09/20/20 22:00 Neutrophils % (Manual) 86 % (39-76) H 09/20/20 22:00 Band Neutrophils % 1 % (0-10) 09/20/20 22:00 Lymphocytes % (Manual) 9 % (13-43) L 09/20/20 22:00 Monocytes % (Manual) 4 % (4-9) 09/20/20 22:00 Plt Morphology Comment Normal (NORMAL) 09/20/20 22:00 RBC Morphology Normal (NORMAL) 09/20/20 22:00 Sodium 140 mmol/L (136-145) 09/23/20 03:40 Corrected Sodium TNP 09/23/20 03:40 Potassium 3.0 mmol/L (3.5-5.1) L* 09/23/20 03:40 Chloride 105 mmol/L (98-107) 09/23/20 03:40 Carbon Dioxide 26.4 mmol/L (21-32) 09/23/20 03:40 BUN 7 mg/dL (7-18) 09/23/20 03:40 Creatinine 0.46 mg/dL (0.55-1.02) L 09/23/20 03:40 Est GFR (MDRD) Af Amer > 60 (>60) 09/23/20 03:40 Est GFR (MDRD) Non-Af > 60 (>60) 09/23/20 03:40 Glucose 86 mg/dL (65-99) 09/23/20 03:40 Calcium 8.6 mg/dL (8.5-10.1) 09/23/20 03:40 Corrected Calcium 9.2 mg/dL (8.5-10.1) 09/23/20 03:40 Magnesium 2.0 mg/dL (1.7-2.9) 09/23/20 03:40 Iron 146 ug/dL (50-175) 09/21/20 08:41 Transferrin 237 mg/dL (202-364) 09/21/20 08:41 Ferritin 1270 ng/mL (8-252) H 09/21/20 08:41 Total Bilirubin 0.80 mg/dL (0.2-1.0) 09/23/20 03:40 AST 47 Units/L (15-37) H 09/23/20 03:40 ALT 33 Units/L (12-78) 09/23/20 03:40 Alkaline Phosphatase 67 Units/L (46-116) 09/23/20 03:40 Total Protein 6.7 g/dL (6.4-8.2) 09/23/20 03:40 Albumin 3.2 g/dL (3.4-5.0) L 09/23/20 03:40 Globulin 3.5 g/dL (2.5-4.5) 09/23/20 03:40 Albumin/Globulin Ratio 0.9 Ratio (1.1-2.1) L 09/23/20 03:40 Amylase 66 Units/L (25-115) 09/20/20 22:00 Lipase 430 Units/L (73-393) H 09/20/20 22:00 Vitamin B12 368 pg/mL (193-986) 09/21/20 08:41 Folate 7.3 ng/mL (>8.6) L 09/21/20 08:41 Specimen Type Clean catch urine 09/20/20 23:38 Urine Color Dark yellow (YELLOW) 09/20/20 23:38 Urine Appearance Clear (CLEAR) 09/20/20 23:38 Urine pH 6.0 (5.0 - 8.0) 09/20/20 23:38 Ur Specific [place] 1.020 (1.000-1.030) 09/20/20 23:38 Urine Protein 3+ (NEGATIVE) 09/20/20 23:38 Urine Glucose (UA) Negative (NEGATIVE) 09/20/20 23:38 Urine Ketones 4+ (NEGATIVE) 09/20/20 23:38 Urine Occult Blood 4+ (NEGATIVE) 09/20/20 23:38 Urine Nitrite Negative (NEGATIVE) 09/20/20 23:38 Urine Bilirubin 1+ (NEGATIVE) 09/20/20 23:38 Urine Urobilinogen 1+ (NORMAL) 09/20/20 23:38 Ur Leukocyte Esterase Negative (NEGATIVE) 09/20/20 23:38 Urine RBC 20-30 /HPF (0-3) A 06/08/21 23:38 Urine WBC None seen /HPF (0-5) 09/20/20 23:38 Ur Squamous Epith Cells Few /HPF (NEGATIVE) 09/20/20 23:38 Urine Bacteria Trace /HPF (NEGATIVE) 09/20/20 23:38 Hyaline Casts Few /LPF (NEGATIVE) 09/20/20 23:38 Ur Culture Indicated? No/not indicated 09/20/20 23:38 SARS CoV-2 RNA Rapid JOHN Negative (NEGATIVE) 09/21/20 00:15 Tissue Pathology To follow 09/23/20 09:23 Plan (1) Odynophagia: Status: Acute (2) Gastritis: Status: Acute Qualifiers: Chronicity: unspecified Gastritis bleeding: presence of bleeding unspecified Gastritis type: unspecified gastritis Qualified Code(s): K29.70 - Gastritis, unspecified, without bleeding (3) Acute pancreatitis: Status: Acute Qualifiers: Acute pancreatitis complication: unspecified Pancreatitis type: unspecified pancreatitis type Qualified Code(s): K85.90 - Acute pancreatitis without necrosis or infection, unspecified (4) Nausea & vomiting: Status: Acute Qualifiers: Vomiting Intractability: non-intractable Vomiting type: unspecified Qualified Code(s): R11.2 - Nausea with vomiting, unspecified (5) Abdominal pain: Status: Acute Qualifiers: Abdominal location: right upper quadrant Qualified Code(s): R10.11 - Right upper quadrant pain (6) Metabolic acidosis: Status: Acute (7) Neuropathy: Status: Acute (8) Hypokalemia: Status: Acute (9) Thrombocytopenia: Status: Acute
[2020-09-23] MEDS: MORPHINE SULFATE INJ 2 MG INJ IVP PRN ×3 (14:24→22:38)
[2020-09-24] MEDS: NS 1000 ML 1,000 ML IV SCH ×3 (01:55→18:20)
[2020-09-24] MEDS: MORPHINE SULFATE INJ 2 MG INJ IVP PRN ×6 (02:39→23:00)
[2020-09-24] MEDS: NEURONTIN CAP 300 MG PO SCH ×4 (05:08→21:41)
[2020-09-24] MEDS: LEVSIN/MAALOX/LIDOC VISC PO PRN ×5 (06:04→23:01)
[2020-09-24] MEDS: CARAFATE ORAL SUSP PO SCH ×4 (06:07→21:00)
[2020-09-24] MEDS ORDERED: DIFLUCAN 200 MG IV PREMIX* 200 MG/100 ML BAG IV SCH (09:00)
[2020-09-24] MEDS ORDERED: ZESTRIL TAB 20 MG ONE (09:02)
[2020-09-24] MEDS: DIFLUCAN 200 MG IV PREMIX* 200 MG/100 ML BAG IV SCH (09:07)
[2020-09-24] MEDS: FOLIC ACID TAB 1 MG PO SCH (09:09)
[2020-09-24] MEDS: ZESTRIL TAB 20 MG PO SCH (09:09)
[2020-09-24] MEDS: PHENERGAN TAB 25 MG PO PRN ×2 (09:09→18:56)
[2020-09-24] MEDS: NICOTINE PATCH TD SCH (09:10)
[2020-09-24] MEDS: PEPCID 20 MG IV PREMIX* 20 MG/50 ML BAG IV SCH (09:11)
[2020-09-24] MEDS ORDERED: LEXAPRO ONE (09:14)
[2020-09-24] MEDS: LEXAPRO PO SCH (09:17)
[2020-09-24] MEDS: PROTONIX INJ 40 MG VIAL IVP SCH ×2 (09:17→21:00)
[2020-09-24] MEDS: NYSTATIN SUSP PO SCH ×4 (09:17→21:00)
--- NOTE | 2020-09-24 10:50 | RAD ---
HISTORYAcute Pancreatitis HTN, B/L LUMPECTOMYSTUDYACUTE ABDOMEN SERIESCOMPARISONJune 2020FINDINGSThe trachea is midline. The cardiac silhouette is [unremarkable]. [The lungs are clear without focal mass or consolidation. There is no effusion or pneumothorax.] [The bony thorax is unremarkable].Flat plate and upright evaluation of the abdomen demonstrates a [normal bowel gas pattern]. There is contrast in the bowel from on recent CT. There is no pneumoperitoneum. No pathological soft tissue mass or calcification can be observed. The bony structures are grossly intact.IMPRESSION1. [No acute cardiopulmonary disease.]2. [No evidence for acute abdominal pathology identified.]Electronically signed by: MARCELLA GONZALEZ (Sep 24, 2020 10:47:50)
--- NOTE | 2020-09-24 18:56 | DR.PROGNOT ---
Hospital Progress Notes - Progress Note for Day of: Progress Note Date: 09/24/20 - Chief Complaint Chief Complaint: still c/o severe pain with swallowing associated with heartburn . - Past Medical Family Social History Past Med/Fam/Surg Hx: No changes since H&P, Changes noted (describe) Allergies: Allergies No Known Drug Allergies Allergy (Verified 11/11/19 17:33) - Review Of Systems ROS: No change since H&P - Vital Signs Vital Signs: Temperature 98.8 F Pulse Rate [Apical] 85 Pulse Rate 125 Respiratory Rate 20 Blood Pressure [Left Arm] 138/94 Blood Pressure 172/113 O2 Sat by Pulse Oximetry 95 - Physical Exam Oriented: Normal Eyes: Normal Ear: Normal Nose: Normal Throat: Other (thrush noted on the tongue) Respiratory: Normal Cardiovascular: Normal GI:Auscultation: Normal GI: Tenderness: Diffuse, Epigastric (soft, flat abdomen with moderate upper abdominal tenderness .. BS+), Periumbilical, Mild Skin: Normal Musculoskeletal: Normal Psychiatric: Anxiety Mood Description: Appropriate Affect: Anxious Speech Pattern: Clear, Appropriate - Laboratory and Diagnostics Result Diagrams: 09/23/20 03:40 09/23/20 21:23 Labs: Laboratory WBC 3.4 X10^3/uL (3.6-10.0) L 09/23/20 03:40 RBC 3.48 X10^6/uL (3.5-5.4) L 09/23/20 03:40 Hgb 12.3 g/dL (12.0-16.0) 09/23/20 03:40 Hct 35.4 % (36.0-47.0) L 09/23/20 03:40 MCV 101.8 fL (80.0-100.0) H 09/23/20 03:40 MCH 35.5 pg (27.0-34.0) H 09/23/20 03:40 MCHC 34.8 g/dL (33.0-35.0) 09/23/20 03:40 RDW 12.0 % (11.6-16.5) 09/23/20 03:40 Plt Count 92 X10^3/uL (150.0-450.0) L 09/23/20 03:40 Plt Count Comment Adequate (ADEQUATE) 09/20/20 22:00 MPV 9.1 fL (7.4-11.0) 09/23/20 03:40 Neut % (Auto) 52.2 % (42.0-75.0) 09/23/20 03:40 Lymph % (Auto) 35.2 % (21.0-51.0) 09/23/20 03:40 [place] % (Auto) 9.3 % (0.0-13.0) 09/23/20 03:40 Eos % (Auto) 3.0 % (0.9-2.9) H 09/23/20 03:40 Baso % (Auto) 0.3 % (0.2-1.0) 09/23/20 03:40 Neut # (Auto) 1.8 x10^3/uL (2.2-4.8) L 09/23/20 03:40 Lymph # (Auto) 1.2 X10^3/uL (1.3-2.9) L 09/23/20 03:40 [place] # (Auto) 0.3 x10^3/uL (0.3-0.8) 09/23/20 03:40 Eos # (Auto) 0.1 x10^3/uL (0.0-0.2) 09/23/20 03:40 Baso # (Auto) 0.0 X10^3/uL (0.0-0.1) 09/23/20 03:40 Absolute Nucleated RBC 0.0 /100WBC 09/23/20 03:40 Total Counted 100 09/20/20 22:00 Neutrophils % (Manual) 86 % (39-76) H 09/20/20 22:00 Band Neutrophils % 1 % (0-10) 09/20/20 22:00 Lymphocytes % (Manual) 9 % (13-43) L 09/20/20 22:00 Monocytes % (Manual) 4 % (4-9) 09/20/20 22:00 Plt Morphology Comment Normal (NORMAL) 09/20/20 22:00 RBC Morphology Normal (NORMAL) 09/20/20 22:00 Sodium 140 mmol/L (136-145) 09/23/20 03:40 Corrected Sodium TNP 09/23/20 03:40 Potassium 3.8 mmol/L (3.5-5.1) 09/23/20 21:23 Chloride 105 mmol/L (98-107) 09/23/20 03:40 Carbon Dioxide 26.4 mmol/L (21-32) 09/23/20 03:40 BUN 7 mg/dL (7-18) 09/23/20 03:40 Creatinine 0.46 mg/dL (0.55-1.02) L 09/23/20 03:40 Est GFR (MDRD) Af Amer > 60 (>60) 09/23/20 03:40 Est GFR (MDRD) Non-Af > 60 (>60) 09/23/20 03:40 Glucose 86 mg/dL (65-99) 09/23/20 03:40 Calcium 8.6 mg/dL (8.5-10.1) 09/23/20 03:40 Corrected Calcium 9.2 mg/dL (8.5-10.1) 09/23/20 03:40 Magnesium 2.0 mg/dL (1.7-2.9) 09/23/20 21:23 Iron 146 ug/dL (50-175) 09/21/20 08:41 Transferrin 237 mg/dL (202-364) 09/21/20 08:41 Ferritin 1270 ng/mL (8-252) H 09/21/20 08:41 Total Bilirubin 0.80 mg/dL (0.2-1.0) 09/23/20 03:40 AST 47 Units/L (15-37) H 09/23/20 03:40 ALT 33 Units/L (12-78) 09/23/20 03:40 Alkaline Phosphatase 67 Units/L (46-116) 09/23/20 03:40 Total Protein 6.7 g/dL (6.4-8.2) 09/23/20 03:40 Albumin 3.2 g/dL (3.4-5.0) L 09/23/20 03:40 Globulin 3.5 g/dL (2.5-4.5) 09/23/20 03:40 Albumin/Globulin Ratio 0.9 Ratio (1.1-2.1) L 09/23/20 03:40 Amylase 66 Units/L (25-115) 09/20/20 22:00 Lipase 430 Units/L (73-393) H 09/20/20 22:00 Vitamin B12 368 pg/mL (193-986) 09/21/20 08:41 Folate 7.3 ng/mL (>8.6) L 09/21/20 08:41 Specimen Type Clean catch urine 09/20/20 23:38 Urine Color Dark yellow (YELLOW) 09/20/20 23:38 Urine Appearance Clear (CLEAR) 09/20/20 23:38 Urine pH 6.0 (5.0 - 8.0) 09/20/20 23:38 Ur Specific [place] 1.020 (1.000-1.030) 09/20/20 23:38 Urine Protein 3+ (NEGATIVE) 09/20/20 23:38 Urine Glucose (UA) Negative (NEGATIVE) 09/20/20 23:38 Urine Ketones 4+ (NEGATIVE) 09/20/20 23:38 Urine Occult Blood 4+ (NEGATIVE) 09/20/20 23:38 Urine Nitrite Negative (NEGATIVE) 09/20/20 23:38 Urine Bilirubin 1+ (NEGATIVE) 09/20/20 23:38 Urine Urobilinogen 1+ (NORMAL) 09/20/20 23:38 Ur Leukocyte Esterase Negative (NEGATIVE) 09/20/20 23:38 Urine RBC 20-30 /HPF (0-3) A 09/20/20 23:38 Urine WBC None seen /HPF (0-5) 09/20/20 23:38 Ur Squamous Epith Cells Few /HPF (NEGATIVE) 09/20/20 23:38 Urine Bacteria Trace /HPF (NEGATIVE) 09/20/20 23:38 Hyaline Casts Few /LPF (NEGATIVE) 09/20/20 23:38 Ur Culture Indicated? No/not indicated 09/20/20 23:38 SARS CoV-2 RNA Rapid JOHN Negative (NEGATIVE) 09/21/20 00:15 Tissue Pathology To follow 09/23/20 09:23 - Assessment and Plan 1: severe reflux esophagitis and possible Cadidiasis . stricture of the lower esophagus . same IV Protonix . Diflucan . hydration . - Problem Patient Problems: Patient Problems Acute pancreatitis (Acute) K85.90
[2020-09-25] MEDS: NS 1000 ML 1,000 ML IV SCH ×4 (03:08→19:47)
[2020-09-25] MEDS: PHENERGAN TAB 25 MG PO PRN ×3 (03:09→17:17)
[2020-09-25] MEDS: LEVSIN/MAALOX/LIDOC VISC PO PRN ×5 (03:30→20:56)
[2020-09-25] MEDS: MORPHINE SULFATE INJ 2 MG INJ IVP PRN ×5 (03:30→20:57)
[2020-09-25 04:33] LABS: BASOPHILS % (AUTO) 0.5 % (0.2-1.0); EOSINOPHILS # (AUTO) 0.1 x10^3/uL (0.0-0.2); HEMATOCRIT 33.9 % (36.0-47.0); LYMPHOCYTES # (AUTO) 1.2 X10^3/uL (1.3-2.9); LYMPHOCYTES % (AUTO) 30.2 % (21.0-51.0); MEAN CORPUSCULAR HEMOGLOBIN 35.4 pg (27.0-34.0); MEAN CORPUSCULAR HGB CONC 35.3 g/dL (33.0-35.0); MEAN CORPUSCULAR VOLUME 100.3 fL (80.0-100.0); MEAN PLATELET VOLUME 8.6 fL (7.4-11.0); MONOCYTES # (AUTO) 0.5 x10^3/uL (0.3-0.8); MONOCYTES % (AUTO) 13.8 % (0.0-13.0); NEUTROPHILS # (AUTO) 2.1 x10^3/uL (2.2-4.8); NEUTROPHILS % (AUTO) 52.5 % (42.0-75.0); PLATELET COUNT 144 X10^3/uL (150.0-450.0); RED BLOOD COUNT 3.37 X10^6/uL (3.5-5.4); RED CELL DISTRIBUTION WIDTH 11.7 % (11.6-16.5)
[2020-09-25 04:49] LABS: ALANINE AMINOTRANSFERASE 30 Units/L (12-78); ALKALINE PHOSPHATASE 63 Units/L (46-116); AMYLASE 50 Units/L (25-115); ASPARTATE AMINO TRANSFERASE 32 Units/L (15-37); BLOOD UREA NITROGEN 4 mg/dL (7-18); CALCIUM 8.3 mg/dL (8.5-10.1); CARBON DIOXIDE 26.2 mmol/L (21-32); CHLORIDE 105 mmol/L (98-107); COR CA(FOR HYPOALB) 9.1 mg/dL (8.5-10.1); LIPASE 400 Units/L (73-393); SODIUM 140 mmol/L (136-145); TOTAL PROTEIN 6.3 g/dL (6.4-8.2); eGFR NON BLACK RACES > 60 (>60)
[2020-09-25] MEDS: APRESOLINE INJ 20 MG VIAL IVP PRN (04:50)
[2020-09-25] MEDS: NEURONTIN CAP 300 MG PO SCH ×3 (05:21→21:02)
[2020-09-25] MEDS: K-RIDER 10 MEQ/NS 100 ML 10 MEQ/100 ML BAG IV PRN ×8 (05:28→22:37)
[2020-09-25] MEDS: CARAFATE ORAL SUSP PO SCH ×4 (05:32→20:54)
[2020-09-25] MEDS ORDERED: LEXAPRO ONE (08:02)
[2020-09-25] MEDS ORDERED: ZESTRIL TAB 20 MG ONE (08:03)
[2020-09-25] MEDS: DIFLUCAN 200 MG IV PREMIX* 200 MG/100 ML BAG IV SCH (08:10)
[2020-09-25] MEDS: PROTONIX INJ 40 MG VIAL IVP SCH ×2 (08:11→20:55)
[2020-09-25] MEDS: PEPCID 20 MG IV PREMIX* 20 MG/50 ML BAG IV SCH (08:11)
[2020-09-25] MEDS: LEXAPRO PO SCH (08:12)
[2020-09-25] MEDS: FOLIC ACID TAB 1 MG PO SCH (08:12)
[2020-09-25] MEDS: ZESTRIL TAB 20 MG PO SCH (08:14)
[2020-09-25] MEDS: NICOTINE PATCH TD SCH (08:15)
[2020-09-25] MEDS: NYSTATIN SUSP PO SCH ×4 (08:27→20:55)
[2020-09-26] MEDS: MORPHINE SULFATE INJ 2 MG INJ IVP PRN ×3 (01:19→09:43)
[2020-09-26] MEDS: LEVSIN/MAALOX/LIDOC VISC PO PRN ×3 (01:19→10:32)
[2020-09-26] MEDS: NS 1000 ML 1,000 ML IV SCH ×3 (01:59→10:24)
[2020-09-26] MEDS: PHENERGAN TAB 25 MG PO PRN (03:13)
[2020-09-26] MEDS: NEURONTIN CAP 300 MG PO SCH ×2 (05:16→13:08)
[2020-09-26] MEDS: K-RIDER 10 MEQ/NS 100 ML 10 MEQ/100 ML BAG IV PRN ×2 (05:23→07:47)
[2020-09-26] MEDS: CARAFATE ORAL SUSP PO SCH ×2 (05:47→10:50)
[2020-09-26] MEDS ORDERED: LEXAPRO ONE (07:39)
[2020-09-26] MEDS ORDERED: ZESTRIL TAB 20 MG ONE (07:40)
[2020-09-26] MEDS: FOLIC ACID TAB 1 MG PO SCH (08:06)
[2020-09-26] MEDS: LEXAPRO PO SCH (08:06)
[2020-09-26] MEDS: NICOTINE PATCH TD SCH (08:07)
[2020-09-26] MEDS: PROTONIX INJ 40 MG VIAL IVP SCH (08:08)
[2020-09-26] MEDS: NYSTATIN SUSP PO SCH ×2 (08:08→13:08)
[2020-09-26] MEDS: ZESTRIL TAB 20 MG PO SCH (08:08)
[2020-09-26] MEDS: PEPCID 20 MG IV PREMIX* 20 MG/50 ML BAG IV SCH (08:08)
[2020-09-26 08:48] LABS: ALANINE AMINOTRANSFERASE 28 Units/L (12-78); ALBUMIN 3.1 g/dL (3.4-5.0); ALKALINE PHOSPHATASE 63 Units/L (46-116); ASPARTATE AMINO TRANSFERASE 27 Units/L (15-37); BLOOD UREA NITROGEN 3 mg/dL (7-18); CALCIUM 8.8 mg/dL (8.5-10.1); CARBON DIOXIDE 27.3 mmol/L (21-32); CHLORIDE 105 mmol/L (98-107); COR CA(FOR HYPOALB) 9.5 mg/dL (8.5-10.1); COR NA(FOR HYPERGLY) 141 mmol/L (136-145); CREATININE 0.52 mg/dL (0.55-1.02); SODIUM 141 mmol/L (136-145); TOTAL PROTEIN 6.6 g/dL (6.4-8.2); eGFR NON BLACK RACES > 60 (>60)
[2020-09-26] MEDS: DIFLUCAN 200 MG IV PREMIX* 200 MG/100 ML BAG IV SCH (09:43)
--- NOTE | 2020-09-26 15:23 | W.DIS.FURT ---
Summary of Discharge Discharge Summary of Date Date of Exam: 09/26/20 Admission Date Date of Admission: 09/20/20 Admission Diagnosis Patient Problems (Updated 09/23/20 @ 10:19 by Gabbi Sherman) Acute pancreatitis (Acute) K85.90 Hospital Course: Ms. Abdi is a 40 y/o female with a PMH of neuropathy presented with intractable nausea, vomiting and abdominal pain. Her Sx started Saturday and continued to worsen over the day. She reports not being able to keep anything down and vomiting everything including water. She also has diffuse abdominal pain with radiation to the back. She reports having 3-4 alcoholic drinks on Saturday. She recently had U/S for her gallbladder done as outpatient and was told it was normal. She has had pancreatitis in the past and usually triggered by alcohol. Denies fever or chills. She reports having gastritis in the past but never had EGD or saw GI for anything. Denies sick contact at home or any known exposure. In the ED, she had elevated lipase and low bicarb. Her Creatinine was also slightly elevated. COVID test was negative. CTAp showed normal pancreas, no acute process. Patient was admitted for acute pancreatitis/gastritis. She was started on IV hydration with normal saline, pain control and protonix. Labs were monitored daily and electrolytes were replaced as needed. She was initially kept NPO and diet was started based on patient's improvement with Sx. She was able to tolerate some liquids but reported burning pain with swallowing. She was also started on GI cocktail, pepcid, carafate and magic mouthwash. She was also started on Diflucan and nystatin swish and swallow. Patient's Sx did not improve much and she was not eating due to pain with swallowing. Dr. Justice was consulted for possible EGD. Patient had EGD done which showed severe esophagitis, gastritis and stricture. Biopsies were also taken. Patient's symptoms improved slightly and she was able to eat some solid food. She did not have any further vomiting. She was stable for discharge. She will follow up with PCP and Dr. Justice in 10 days. Vital Signs: Vital Signs (72 hours) 09/23/20 16:00 09/23/20 18:26 09/23/20 18:56 Temperature 98.6 F Pulse Rate [Apical] 93 H Respiratory Rate 18 18 18 Blood Pressure [Left Arm] 106/72 O2 Sat by Pulse Oximetry 98 09/23/20 20:00 09/23/20 22:38 09/23/20 23:08 Temperature 98.6 F Pulse Rate [Apical] 92 H Respiratory Rate 18 20 20 Blood Pressure [Left Arm] 134/98 O2 Sat by Pulse Oximetry 99 09/24/20 00:00 09/24/20 02:39 09/24/20 03:08 Temperature 99.2 F Pulse Rate [Apical] 91 H Respiratory Rate 18 22 22 Blood Pressure [Left Arm] 137/104 O2 Sat by Pulse Oximetry 98 09/24/20 04:00 09/24/20 06:04 09/24/20 06:20 Temperature 98.2 F Pulse Rate [Apical] 86 Respiratory Rate 18 20 20 Blood Pressure [Left Arm] 149/93 O2 Sat by Pulse Oximetry 99 09/24/20 06:50 09/24/20 07:04 09/24/20 08:00 Temperature 97.8 F Pulse Rate [Apical] 87 Respiratory Rate 18 18 18 Blood Pressure [Left Arm] 154/87 O2 Sat by Pulse Oximetry 99 09/24/20 09:12 09/24/20 10:00 09/24/20 10:12 Temperature Pulse Rate [Apical] Respiratory Rate 18 19 18 Blood Pressure [Left Arm] O2 Sat by Pulse Oximetry 09/24/20 10:30 09/24/20 12:00 09/24/20 13:59 Temperature 98.0 F Pulse Rate [Apical] 87 Respiratory Rate 18 20 18 Blood Pressure [Left Arm] 146/90 O2 Sat by Pulse Oximetry 98 09/24/20 14:04 09/24/20 14:34 09/24/20 14:59 Temperature Pulse Rate [Apical] Respiratory Rate 18 18 18 Blood Pressure [Left Arm] O2 Sat by Pulse Oximetry 09/24/20 16:00 09/24/20 18:55 09/24/20 18:56 Temperature 98.8 F Pulse Rate [Apical] 85 Respiratory Rate 20 18 18 Blood Pressure [Left Arm] 138/94 O2 Sat by Pulse Oximetry 95 09/24/20 19:26 09/24/20 19:55 09/24/20 20:00 Temperature 98.1 F Pulse Rate [Apical] 91 H Respiratory Rate 20 20 20 Blood Pressure [Left Arm] 182/94 O2 Sat by Pulse Oximetry 98 09/24/20 23:00 09/24/20 23:01 09/24/20 23:30 Temperature Pulse Rate [Apical] Respiratory Rate 18 18 20 Blood Pressure [Left Arm] O2 Sat by Pulse Oximetry 09/25/20 00:00 09/25/20 00:01 09/25/20 03:30 Temperature 98.0 F Pulse Rate [Apical] 77 Respiratory Rate 20 20 20 Blood Pressure [Left Arm] 159/97 O2 Sat by Pulse Oximetry 97 09/25/20 04:00 09/25/20 04:30 09/25/20 04:45 Temperature 98.2 F Pulse Rate [Apical] 75 Respiratory Rate 20 20 Blood Pressure [Left Arm] 179/113 186/103 O2 Sat by Pulse Oximetry 97 09/25/20 05:00 09/25/20 08:00 09/25/20 08:28 Temperature 98.4 F Pulse Rate [Apical] 96 H Respiratory Rate 18 18 Blood Pressure [Left Arm] 144/92 149/95 O2 Sat by Pulse Oximetry 98 09/25/20 08:58 09/25/20 09:28 09/25/20 12:00 Temperature 98.8 F Pulse Rate [Apical] 80 Respiratory Rate 18 18 18 Blood Pressure [Left Arm] 129/77 O2 Sat by Pulse Oximetry 96 09/25/20 12:40 09/25/20 13:10 09/25/20 13:40 Temperature Pulse Rate [Apical] Respiratory Rate 18 18 18 Blood Pressure [Left Arm] O2 Sat by Pulse Oximetry 09/25/20 16:00 09/25/20 17:14 09/25/20 17:44 Temperature 98.2 F Pulse Rate [Apical] 74 Respiratory Rate 18 18 19 Blood Pressure [Left Arm] 141/92 O2 Sat by Pulse Oximetry 98 09/25/20 18:14 09/25/20 20:00 09/25/20 20:56 Temperature 97.8 F Pulse Rate [Apical] 87 Respiratory Rate 19 20 18 Blood Pressure [Left Arm] 142/90 O2 Sat by Pulse Oximetry 97 09/25/20 20:57 09/25/20 21:27 09/25/20 21:56 Temperature Pulse Rate [Apical] Respiratory Rate 18 18 18 Blood Pressure [Left Arm] O2 Sat by Pulse Oximetry 09/25/20 23:46 09/26/20 01:19 09/26/20 01:49 Temperature 97.9 F Pulse Rate [Apical] 86 Respiratory Rate 18 18 18 Blood Pressure [Left Arm] 147/93 O2 Sat by Pulse Oximetry 98 09/26/20 02:19 09/26/20 03:25 09/26/20 05:05 Temperature 98.4 F Pulse Rate [Apical] 93 H Respiratory Rate 18 20 18 Blood Pressure [Left Arm] 151/94 O2 Sat by Pulse Oximetry 95 09/26/20 05:35 09/26/20 06:03 09/26/20 08:00 Temperature 98.3 F Pulse Rate [Apical] 83 Respiratory Rate 18 18 20 Blood Pressure [Left Arm] 163/99 O2 Sat by Pulse Oximetry 99 09/26/20 09:43 09/26/20 10:13 09/26/20 10:32 Temperature Pulse Rate [Apical] Respiratory Rate 20 20 20 Blood Pressure [Left Arm] O2 Sat by Pulse Oximetry 09/26/20 11:32 09/26/20 12:00 Temperature 98.1 F Pulse Rate [Apical] 82 Respiratory Rate 20 22 Blood Pressure [Left Arm] 135/86 O2 Sat by Pulse Oximetry 97 Labs: Laboratory Last Values WBC 4.0 X10^3/uL (3.6-10.0) 09/25/20 04:03 RBC 3.37 X10^6/uL (3.5-5.4) L 09/25/20 04:03 Hgb 12.0 g/dL (12.0-16.0) 09/25/20 04:03 Hct 33.9 % (36.0-47.0) L 09/25/20 04:03 MCV 100.3 fL (80.0-100.0) H 09/25/20 04:03 MCH 35.4 pg (27.0-34.0) H 09/25/20 04:03 MCHC 35.3 g/dL (33.0-35.0) H 09/25/20 04:03 RDW 11.7 % (11.6-16.5) 09/25/20 04:03 Plt Count 144 X10^3/uL (150.0-450.0) L 09/25/20 04:03 Plt Count Comment Adequate (ADEQUATE) 09/20/20 22:00 MPV 8.6 fL (7.4-11.0) 09/25/20 04:03 Neut % (Auto) 52.5 % (42.0-75.0) 09/25/20 04:03 Lymph % (Auto) 30.2 % (21.0-51.0) 09/25/20 04:03 [place] % (Auto) 13.8 % (0.0-13.0) H 09/25/20 04:03 Eos % (Auto) 3.0 % (0.9-2.9) H 09/25/20 04:03 Baso % (Auto) 0.5 % (0.2-1.0) 09/25/20 04:03 Neut # (Auto) 2.1 x10^3/uL (2.2-4.8) L 09/25/20 04:03 Lymph # (Auto) 1.2 X10^3/uL (1.3-2.9) L 09/25/20 04:03 [place] # (Auto) 0.5 x10^3/uL (0.3-0.8) 09/25/20 04:03 Eos # (Auto) 0.1 x10^3/uL (0.0-0.2) 09/25/20 04:03 Baso # (Auto) 0.0 X10^3/uL (0.0-0.1) 09/25/20 04:03 Absolute Nucleated RBC 0.0 /100WBC 09/25/20 04:03 Total Counted 100 09/20/20 22:00 Neutrophils % (Manual) 86 % (39-76) H 09/20/20 22:00 Band Neutrophils % 1 % (0-10) 09/20/20 22:00 Lymphocytes % (Manual) 9 % (13-43) L 09/20/20 22:00 Monocytes % (Manual) 4 % (4-9) 09/20/20 22:00 Plt Morphology Comment Normal (NORMAL) 09/20/20 22:00 RBC Morphology Normal (NORMAL) 09/20/20 22:00 Sodium 141 mmol/L (136-145) 09/26/20 08:27 Corrected Sodium 141 mmol/L (136-145) 09/26/20 08:27 Potassium 3.7 mmol/L (3.5-5.1) 09/26/20 08:27 Chloride 105 mmol/L (98-107) 09/26/20 08:27 Carbon Dioxide 27.3 mmol/L (21-32) 09/26/20 08:27 BUN 3 mg/dL (7-18) L 09/26/20 08:27 Creatinine 0.52 mg/dL (0.55-1.02) L 09/26/20 08:27 Est GFR (MDRD) Af Amer > 60 (>60) 09/26/20 08:27 Est GFR (MDRD) Non-Af > 60 (>60) 09/26/20 08:27 Glucose 117 mg/dL (65-99) H 09/26/20 08:27 Calcium 8.8 mg/dL (8.5-10.1) 09/26/20 08:27 Corrected Calcium 9.5 mg/dL (8.5-10.1) 09/26/20 08:27 Magnesium 2.0 mg/dL (1.7-2.9) 09/26/20 03:55 Iron 146 ug/dL (50-175) 09/21/20 08:41 Transferrin 237 mg/dL (202-364) 09/21/20 08:41 Ferritin 1270 ng/mL (8-252) H 09/21/20 08:41 Total Bilirubin 0.20 mg/dL (0.2-1.0) 09/26/20 08:27 AST 27 Units/L (15-37) 09/26/20 08:27 ALT 28 Units/L (12-78) 09/26/20 08:27 Alkaline Phosphatase 63 Units/L (46-116) 09/26/20 08:27 Total Protein 6.6 g/dL (6.4-8.2) 09/26/20 08:27 Albumin 3.1 g/dL (3.4-5.0) L 09/26/20 08:27 Globulin 3.5 g/dL (2.5-4.5) 09/26/20 08:27 Albumin/Globulin Ratio 0.9 Ratio (1.1-2.1) L 09/26/20 08:27 Amylase 50 Units/L (25-115) 09/25/20 04:03 Lipase 400 Units/L (73-393) H 09/25/20 04:03 Vitamin B12 368 pg/mL (193-986) 09/21/20 08:41 Folate 7.3 ng/mL (>8.6) L 09/21/20 08:41 Specimen Type Clean catch urine 09/20/20 23:38 Urine Color Dark yellow (YELLOW) 09/20/20 23:38 Urine Appearance Clear (CLEAR) 09/20/20 23:38 Urine pH 6.0 (5.0 - 8.0) 09/20/20 23:38 Ur Specific [place] 1.020 (1.000-1.030) 09/20/20 23:38 Urine Protein 3+ (NEGATIVE) 09/20/20 23:38 Urine Glucose (UA) Negative (NEGATIVE) 09/20/20 23:38 Urine Ketones 4+ (NEGATIVE) 09/20/20 23:38 Urine Occult Blood 4+ (NEGATIVE) 09/20/20 23:38 Urine Nitrite Negative (NEGATIVE) 09/20/20 23:38 Urine Bilirubin 1+ (NEGATIVE) 09/20/20 23:38 Urine Urobilinogen 1+ (NORMAL) 09/20/20 23:38 Ur Leukocyte Esterase Negative (NEGATIVE) 09/20/20 23:38 Urine RBC 20-30 /HPF (0-3) A 09/20/20 23:38 Urine WBC None seen /HPF (0-5) 09/20/20 23:38 Ur Squamous Epith Cells Few /HPF (NEGATIVE) 09/20/20 23:38 Urine Bacteria Trace /HPF (NEGATIVE) 09/20/20 23:38 Hyaline Casts Few /LPF (NEGATIVE) 09/20/20 23:38 Ur Culture Indicated? No/not indicated 09/20/20 23:38 SARS CoV-2 RNA Rapid JOHN Negative (NEGATIVE) 09/21/20 00:15 Tissue Pathology To follow 09/23/20 09:23 Reason For Visit: ACUTE PANCREATITIS Discharge Date Discharge Date: 09/26/20 Discharge Diagnosis All Active Problems (Updated 09/23/20 @ 10:19 by Gabbi Sherman) Gastritis (Acute) Odynophagia (Acute) Thrombocytopenia (Acute) Hypokalemia (Acute) Neuropathy (Acute) Metabolic acidosis (Acute) Hepatomegaly (Acute) Nausea & vomiting (Acute) Abdominal pain (Acute) Hypokalemia (Acute) Diarrhea (Acute) Weight loss (Acute) Acute pancreatitis (Acute) Plan of Treatment: Continue with present treatment and follow up plan. Pt is to keep follow up appointment as instructed and take medications as ordered. Discharge Medications Discharge Medications: No Known Drug Allergies Allergy (Verified 11/11/19 17:33) CONTINUE taking the following medications gabapentin 300 mg PO TID 09/21/20 [History] New Prescriptions fluconazole 200 mg PO DAILY 10 Days #10 tab 09/26/20 [Rx] folic acid 1 mg PO DAILY 30 Days #30 tab 09/26/20 [Rx] hydrocodone-acetaminophen 1 tab PO Q8H PRN 10 Days #30 tab MDD 3 tabs 09/26/20 [Rx] hyoscyamine sulfate [Hyosyne] 30 ml PO Q4HR PRN 10 Days #200 ml 09/26/20 [Rx] lisinopril 20 mg PO DAILY 30 Days #30 tab 09/26/20 [Rx] nystatin 5 ml MT QID PRN 10 Days #200 ml 09/26/20 [Rx] pantoprazole 40 mg PO BID 30 Days #60 tab 09/26/20 [Rx] promethazine 25 mg PO Q12H PRN 5 Days #20 tab 09/26/20 [Rx] Follow up and Referral Follow Up: 10 Days (Dr. JUSTICE ) 1 Week (PCP) Discharge Disposition Assessment: Stable no acute distress noted at time of discharge. Discharge Disposition: Home Discharge Condition: Stable Discharge Plan Discharge Plan Hospital Course: Ms. Abdi is a 40 y/o female with a PMH of neuropathy presented with intractable nausea, vomiting and abdominal pain. Her Sx started Saturday and continued to worsen over the day. She reports not being able to keep anything down and vomiting everything including water. She also has diffuse abdominal pain with radiation to the back. She reports having 3-4 alcoholic drinks on Saturday. She recently had U/S for her gallbladder done as outpatient and was told it was normal. She has had pancreatitis in the past and usually triggered by alcohol. Denies fever or chills. She reports having gastritis in the past but never had EGD or saw GI for anything. Denies sick contact at home or any known exposure. In the ED, she had elevated lipase and low bicarb. Her Creatinine was also slightly elevated. COVID test was negative. CTAp showed normal pancreas, no acute process. Patient was admitted for acute pancreatitis/gastritis. She was started on IV hydration with normal saline, pain control and protonix. Labs were monitored daily and electrolytes were replaced as needed. She was initially kept NPO and diet was started based on patient's improvement with Sx. She was able to tolerate some liquids but reported burning pain with swallowing. She was also started on GI cocktail, pepcid, carafate and magic mouthwash. She was also started on Diflucan and nystatin swish and swallow. Patient's Sx did not improve much and she was not eating due to pain with swallowing. Dr. Justice was consulted for possible EGD. Patient had EGD done which showed severe esophagitis, gastritis and stricture. Biopsies were also taken. Patient's symptoms improved slightly and she was able to eat some solid food. She did not have any further vomiting. She was stable for discharge. She will follow up with PCP and Dr. Justice in 10 days. Patient Disposition: 01 HOME, SELF-CARE Condition: Stable Health Concerns: Post Hospitalization: new medications and changes needed to prevent readmission or further decline. Pt educated and given instructions on all concerns. Care Plan Goals: Problem: Pain/Alteration in Comfort Goal: Improve/ Resolve Pain; Achieve Pain Tolerance Instructions: Take pain medications as prescribed. Contact your primary care provider if your pain is unrelieved or worsens. Follow up with primary care provider as directed. Plan of Treatment: Continue with present treatment and follow up plan. Pt is to keep follow up appointment as instructed and take medications as ordered. Assessment: Stable no acute distress noted at time of discharge. Prescription drug monitoring program results: PDMP reviewed and no concerns identified Prescriptions: New hydrocodone-acetaminophen 7.5-325 mg tablet 1 tab PO Q8H MDD 3 tabs PRN10 Days Qty: 30 RF: 0 nystatin 100,000 unit/mL Suspension 5 ml MT QID PRN10 Days Qty: 200 RF: 0 lisinopril 20 mg Tablet 20 mg PO DAILY 30 Days Qty: 30 RF: 1 promethazine 25 mg Tablet 25 mg PO Q12H PRN5 Days Qty: 20 RF: 1 folic acid 1 mg Tablet 1 mg PO DAILY 30 Days Qty: 30 RF: 1 hyoscyamine sulfate [Hyosyne] 0.125 mg/5 mL Elixir 30 ml PO Q4HR PRN10 Days Qty: 200 RF: 1 pantoprazole 40 mg tablet,delayed release (DR/EC) 40 mg PO BID 30 Days Qty: 60 RF: 1 fluconazole 200 mg tablet 200 mg PO DAILY 10 Days Qty: 10 RF: 0 Continued gabapentin 300 mg capsule 300 mg PO TID RF: 0 Follow ups/Referrals Follow ups/Referrals: KOSTA ERICKSON [Primary Care Provider] - 10/11/20 4:00 pm MEHNAZ JEFFREY [STAFF PHYSICIAN] - 10/06/20 10:50 am (follow up in office in 2 weeks ) Gabbi Sherman [STAFF PHYSICIAN] - 10/06/20 9:40 am Instructions Instructions: Gastritis, Adult, [id number], Acute Pancreatitis, [id number], Esophageal Dilatation, Esophagitis, Nausea and Vomiting, Adult, [id number], Abdominal Pain, Adult, Esophagogastrectomy, Care After Stand Alone Forms: Excuse From Work or School, Precautions for COVID19, Patient Portal, Social Distancing
[2020-09-26 16:05] VITALS: BP 152/84
== END 2020-09-26 17:00 | disposition home or self-care (01) | DRG 439 ==
LOC: ER 19:59 → OBS 23:24 → MED/SURG 09-21 10:05
PROVIDERS: ADMIT Internal Medicine; ATTEND Internal Medicine
DX: R79.89 Other specified abnormal findings of blood chemistry; E87.2 Acidosis; R11.2 Nausea with vomiting, unspecified; Z20.822 Contact with and (suspected) exposure to COVID-19; R13.11 Dysphagia, oral phase; R10.84 Generalized abdominal pain; E87.6 Hypokalemia; K21.00 Gastro-esophageal reflux disease with esophagitis, without bleeding; K22.2 Esophageal obstruction; K85.90 Acute pancreatitis without necrosis or infection, unspecified; K29.60 Other gastritis without bleeding; I10 Essential (primary) hypertension; D69.6 Thrombocytopenia, unspecified

== ENCOUNTER 2021-01-28 16:05 | Inpatient (IN) ==
[2021-01-28] MEDS ORDERED: MORPHINE SULFATE INJ 2 MG INJ IVP ONE ×2 (16:27→17:26)
[2021-01-28] MEDS ORDERED: NS 1000 ML 1,000 ML IV ONE (16:27)
[2021-01-28] MEDS ORDERED: ZOFRAN INJ 4 MG VIAL IVP ONE (16:27)
[2021-01-28] MEDS ORDERED: PROTONIX INJ 40 MG VIAL IVP ONE (16:27)
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
[2021-01-28] MEDS ORDERED: MORPHINE SULFATE INJ 2 MG INJ ONE ×2 (16:36→18:11)
[2021-01-28] MEDS ORDERED: NS 100 ML IV 100 ML ONE (16:36)
[2021-01-28] MEDS ORDERED: NS 1000 ML 1,000 ML ONE ×2 (16:37→19:08)
[2021-01-28] MEDS ORDERED: PROTONIX INJ 40 MG VIAL ONE (16:37)
[2021-01-28] MEDS ORDERED: ZOFRAN INJ 4 MG VIAL ONE (16:37)
[2021-01-28 16:39] LABS: HEMOGLOBIN 14.1 g/dL (12.0-16.0); PLATELET COUNT 214 X10^3/uL (150.0-450.0)
[2021-01-28 16:42] LABS: BASOPHILS % (AUTO) 0.4 % (0.2-1.0); EOSINOPHILS % (AUTO) 0.3 % (0.9-2.9); HEMATOCRIT 39.5 % (36.0-47.0); LYMPHOCYTES # (AUTO) 1.3 X10^3/uL (1.3-2.9); LYMPHOCYTES % (AUTO) 15.9 % (21.0-51.0); MEAN CORPUSCULAR HEMOGLOBIN 35.3 pg (27.0-34.0); MEAN CORPUSCULAR HGB CONC 35.7 g/dL (33.0-35.0); MEAN CORPUSCULAR VOLUME 99.1 fL (80.0-100.0); MEAN PLATELET VOLUME 8.5 fL (7.4-11.0); MONOCYTES % (AUTO) 11.6 % (0.0-13.0); NEUTROPHILS % (AUTO) 71.8 % (42.0-75.0); RED BLOOD COUNT 3.98 X10^6/uL (3.5-5.4); RED CELL DISTRIBUTION WIDTH 13.2 % (11.6-16.5); WHITE BLOOD COUNT 8.4 X10^3/uL (3.6-10.0)
[2021-01-28 16:44] LABS: ALANINE AMINOTRANSFERASE 41 Units/L (12-78); ALBUMIN 4.4 g/dL (3.4-5.0); ALKALINE PHOSPHATASE 78 Units/L (46-116); ASPARTATE AMINO TRANSFERASE 48 Units/L (15-37); BLOOD UREA NITROGEN 27 mg/dL (7-18); CALCIUM 10.3 mg/dL (8.5-10.1); CARBON DIOXIDE 15.9 mmol/L (21-32); CHLORIDE 93 mmol/L (98-107); COR NA(FOR HYPERGLY) 128 mmol/L (136-145); CREATININE 0.92 mg/dL (0.55-1.02); SODIUM 127 mmol/L (136-145); TOTAL PROTEIN 8.8 g/dL (6.4-8.2); eGFR NON BLACK RACES > 60 (>60)
[2021-01-28 16:56] LABS: LIPASE 1348 Units/L (73-393)
[2021-01-28] MEDS ORDERED: DILAUDID INJ IVP STA (18:59)
[2021-01-28] MEDS ORDERED: NS 1000 ML 1,000 ML IV SCH ×2 (19:00→20:00)
[2021-01-28] MEDS ORDERED: DILAUDID INJ ONE (19:08)
--- NOTE | 2021-01-28 19:14 | CT ---
HISTORYNVD X 4DAYSSTUDYABDOMEN/PELVIS WITH CONCOMPARISONJune 2020TECHNIQUEAxial CT images of the abdomen and pelvis were obtained after the administration of IV contrast and reformatted into coronal and sagittal planes for further evaluation. Enteric contrast was administered.Radiation dose: 418.70 mGy-cm total DLPFINDINGSLung bases are clear.Stomach appears normal.Mild edema adjacent to the margins the descending duodenum without wall thickening.Diffuse fatty infiltration of the liver.Spleen, pancreas and adrenal glands are unremarkable.Gallbladder appears normal with no biliary dilatation.Homogeneous enhancement of the kidneys without hydronephrosis or hydroureter.Unremarkable appearance of the urinary bladder.Imaged reproductive structures are unremarkable.Unremarkable appearance of the large and small bowel.No evidence of acute appendicitis.No pneumoperitoneum.No significant fluid collection.No adenopathy.No acute osseous abnormality.IMPRESSION1. Mild edema adjacent to the margins the descending duodenum without wall thickening. Findings could represent infectious/inflammatory duodenitis or peptic ulcer disease.2. Diffuse fatty infiltration of the liver.Electronically signed by: Genaro Lima (Jan 28, 2021 19:12:25)
[2021-01-28] MEDS ORDERED: NS + KCL 40 MEQ/L 1,000 ML IV SCH (21:28)
[2021-01-28] MEDS ORDERED: NS + KCL 40 MEQ/L 1,000 ML IV ONE (21:30)
[2021-01-28] MEDS ORDERED: K-RIDER 10 MEQ/NS 100 ML 40 MEQ/400 ML BAG IV ONE (22:00)
[2021-01-28] MEDS ORDERED: POTASSIUM CHL 40 MEQ/NS 0.45% 500 ML 40 MEQ/500 ML BAG IV SCH (22:00)
[2021-01-28] MEDS: DILAUDID INJ IVP PRN (22:29)
[2021-01-29] MEDS: NS 1000 ML 1,000 ML IV SCH ×6 (01:13→21:02)
[2021-01-29] MEDS: DILAUDID INJ IVP PRN ×3 (02:10→13:36)
[2021-01-29] MEDS: PHENERGAN INJ 25 MG IM PRN ×2 (06:10→19:01)
[2021-01-29 06:32] LABS: ALANINE AMINOTRANSFERASE 34 Units/L (12-78); ALBUMIN 3.6 g/dL (3.4-5.0); ALKALINE PHOSPHATASE 63 Units/L (46-116); AMYLASE 458 Units/L (25-115); ASPARTATE AMINO TRANSFERASE 33 Units/L (15-37); BLOOD UREA NITROGEN 18 mg/dL (7-18); CALCIUM 8.6 mg/dL (8.5-10.1); CARBON DIOXIDE 20.6 mmol/L (21-32); CHLORIDE 100 mmol/L (98-107); CREATININE 0.48 mg/dL (0.55-1.02); SODIUM 134 mmol/L (136-145); TOTAL PROTEIN 7.4 g/dL (6.4-8.2); eGFR NON BLACK RACES > 60 (>60)
[2021-01-29 06:52] LABS: BASOPHILS % (AUTO) 0.2 % (0.2-1.0); EOSINOPHILS % (AUTO) 0.7 % (0.9-2.9); HEMATOCRIT 34.1 % (36.0-47.0); LYMPHOCYTES # (AUTO) 0.9 X10^3/uL (1.3-2.9); LYMPHOCYTES % (AUTO) 17.5 % (21.0-51.0); MEAN CORPUSCULAR HEMOGLOBIN 35.9 pg (27.0-34.0); MEAN CORPUSCULAR VOLUME 99.6 fL (80.0-100.0); MEAN PLATELET VOLUME 8.8 fL (7.4-11.0); MONOCYTES # (AUTO) 0.6 x10^3/uL (0.3-0.8); MONOCYTES % (AUTO) 11.6 % (0.0-13.0); NEUTROPHILS # (AUTO) 3.4 x10^3/uL (2.2-4.8); PLATELET COUNT 135 X10^3/uL (150.0-450.0); RED BLOOD COUNT 3.42 X10^6/uL (3.5-5.4); RED CELL DISTRIBUTION WIDTH 13.4 % (11.6-16.5); WHITE BLOOD COUNT 4.9 X10^3/uL (3.6-10.0)
[2021-01-29 06:55] LABS: HEMOGLOBIN 12.3 g/dL (12.0-16.0)
[2021-01-29 07:29] LABS: LIPASE 4380 Units/L (73-393)
[2021-01-29] MEDS ORDERED: MICRO K EXTEN CAP 10 MEQ PO PRN (07:32)
[2021-01-29] MEDS ORDERED: KLOR-CON PO PRN (07:32)
[2021-01-29] MEDS ORDERED: POTASSIUM CHLORIDE LIQ 20 MEQ UDC PO PRN (07:32)
[2021-01-29] MEDS ORDERED: POTASSIUM CHL 40 MEQ/NS 0.45% 500 ML IV PRN (07:32)
[2021-01-29] MEDS ORDERED: K-DUR TAB 20 MEQ PO PRN (07:32)
[2021-01-29] MEDS ORDERED: POTASSIUM CHL 60 MEQ/NS 0.45% 500 ML IV PRN (07:32)
[2021-01-29] MEDS ORDERED: DILAUDID INJ IVP ONE (08:28)
[2021-01-29] MEDS: K-RIDER 10 MEQ/NS 100 ML 10 MEQ/100 ML BAG IV PRN ×10 (08:33→22:08)
[2021-01-29] MEDS ORDERED: PROTONIX INJ 40 MG VIAL IVP SCH (09:00)
[2021-01-29] MEDS: ZOFRAN INJ 4 MG VIAL IVP PRN ×2 (10:12)
--- NOTE | 2021-01-29 10:55 | DR.H&P ---
H&P - History & Physical for Day of: H&P Date: 01/28/21 - History of Present Illness History of Present Illness: Pt is 40 WF ER admission with co persistent generalized abd pain with n/v x four days unresponsive to hydrocodone x 2 she had left over; decreased po intake with last stool earlier in the week; no fever, chills, rash or diarrhea; she had covid about a month ago but no cough now; no sob or wheezing. she was admitted in September, for alcoholic pancreatitis. 09/27/20 egd: severe esophagitis, gastritis, stricture - Past Medical History Past Medical History: GERD, Headaches, PUD - Past Surgical History Surgical History: Other - Family History Family Medical History: Cancer - Social History Type of Tobacco Use: VAPE Alcohol Use: Occasionally Drug Use: None - Medications Home Medications: No Known Drug Allergies Allergy (Verified 11/11/19 17:33) CONTINUE taking the following medications NK 01/28/21 [History] - Review of Systems Constitutional: Malaise Eyes: No Symptoms Reported ENT: No Symptoms Reported Respiratory: No Symptoms Reported Cardiovascular: No Symptoms Reported Gastrointestinal: Nausea, Vomiting, Abdominal Pain Genitourinary: No Symptoms Reported Musculoskeletal: No Symptoms Reported Skin: No Symptoms Reported Neurological: No Symptoms Reported - Physical Exam Vital Signs: Temperature 98.2 F Pulse Rate [Left Radial] 103 Pulse Rate 95 Respiratory Rate 20 Blood Pressure [Right Arm] 139/96 Blood Pressure [Left Arm] 152/84 Blood Pressure 136/91 O2 Sat by Pulse Oximetry 100 Oriented: Normal Eyes: Normal Ear: Normal Nose: Normal Throat: Normal Respiratory: Clear Throughout Cardiovascular: Normal : Normal Auscultation: Bowel Sounds: Normal Palpation: Normal Tenderness: Diffuse, Moderate Skin: Normal Musculoskeletal: Normal Psychiatric: Anxiety Affect: Anxious Speech Pattern: Clear, Appropriate - Assessment/Plan (1) Acute pancreatitis Qualifiers: Pancreatitis type: alcohol induced Acute pancreatitis complication: no infection or necrosis Qualified Code(s): K85.20 - Alcohol induced acute pancreatitis without necrosis or infection Status: Acute Plan: IV HYDRATION, STRICT I& OS. PPI THERAPY, PAIN CONTROL, NPO. CT ABD PELVIS IN ER. VERIFY HOME MEDICATIONS. REPEAT AM LABS (2) Acute hyponatremia Status: Acute (3) Hypokalemia Status: Acute - Allergies Allergies/Adverse Reactions: Allergies Allergy/AdvReac Type Severity Reaction Status Date / Time No Known Drug Allergies Allergy Verified 11/11/19 17:33
[2021-01-29] MEDS ORDERED: BENTYL I.M. INJ 10 MG IM ONE (11:18)
[2021-01-29] MEDS ORDERED: BENADRYL INJ 50 MG VIAL IVP ONE (11:18)
[2021-01-29] MEDS ORDERED: PEPCID 20 MG IV PREMIX* 20 MG/50 ML BAG IV ONE (11:20)
[2021-01-29 12:15] LABS: BLOOD UREA NITROGEN 14 mg/dL (7-18); CALCIUM 8.8 mg/dL (8.5-10.1); CHLORIDE 100 mmol/L (98-107); CREATININE 0.52 mg/dL (0.55-1.02); SODIUM 133 mmol/L (136-145); eGFR NON BLACK RACES > 60 (>60)
[2021-01-29 12:23] LABS: LACTIC ACID 1.5 mmol/L (0.4-2.0)
[2021-01-29] MEDS: DEMEROL INJ IVP PRN ×3 (15:10→23:30)
[2021-01-29] MEDS: PROTONIX INJ 40 MG VIAL IVP SCH (21:02)
[2021-01-30] MEDS: K-RIDER 10 MEQ/NS 100 ML 10 MEQ/100 ML BAG IV PRN ×6 (00:12→23:00)
[2021-01-30] MEDS: DEMEROL INJ IVP PRN ×5 (04:21→21:38)
[2021-01-30] MEDS: NS 1000 ML 1,000 ML IV SCH ×4 (05:32→21:38)
[2021-01-30 06:08] LABS: BASOPHILS % (AUTO) 0.2 % (0.2-1.0); EOSINOPHILS # (AUTO) 0.1 x10^3/uL (0.0-0.2); EOSINOPHILS % (AUTO) 1.4 % (0.9-2.9); HEMATOCRIT 30.9 % (36.0-47.0); HEMOGLOBIN 10.9 g/dL (12.0-16.0); LYMPHOCYTES # (AUTO) 1.1 X10^3/uL (1.3-2.9); LYMPHOCYTES % (AUTO) 27.6 % (21.0-51.0); MEAN CORPUSCULAR HEMOGLOBIN 35.4 pg (27.0-34.0); MEAN CORPUSCULAR HGB CONC 35.2 g/dL (33.0-35.0); MEAN CORPUSCULAR VOLUME 100.5 fL (80.0-100.0); MONOCYTES # (AUTO) 0.5 x10^3/uL (0.3-0.8); MONOCYTES % (AUTO) 11.8 % (0.0-13.0); NEUTROPHILS # (AUTO) 2.4 x10^3/uL (2.2-4.8); PLATELET COUNT 106 X10^3/uL (150.0-450.0); RED BLOOD COUNT 3.07 X10^6/uL (3.5-5.4); RED CELL DISTRIBUTION WIDTH 12.8 % (11.6-16.5); WHITE BLOOD COUNT 4.1 X10^3/uL (3.6-10.0)
[2021-01-30 06:26] LABS: ALANINE AMINOTRANSFERASE 25 Units/L (12-78); ALKALINE PHOSPHATASE 56 Units/L (46-116); AMYLASE 278 Units/L (25-115); ASPARTATE AMINO TRANSFERASE 25 Units/L (15-37); BLOOD UREA NITROGEN 5 mg/dL (7-18); CALCIUM 8.5 mg/dL (8.5-10.1); CARBON DIOXIDE 22.8 mmol/L (21-32); CHLORIDE 100 mmol/L (98-107); COR CA(FOR HYPOALB) 9.3 mg/dL (8.5-10.1); SODIUM 134 mmol/L (136-145); TOTAL PROTEIN 6.5 g/dL (6.4-8.2); eGFR NON BLACK RACES > 60 (>60)
[2021-01-30 06:45] LABS: LIPASE 2448 Units/L (73-393)
[2021-01-30] MEDS: PROTONIX INJ 40 MG VIAL IVP SCH ×2 (08:08→20:44)
--- NOTE | 2021-01-30 14:18 | US ---
HISTORYABD PAIN, pancreatitisSTUDYUltrasound right upper quadrantCOMPARISONCT evaluation January 28, 2021FINDINGSNo peripancreatic fluid collections are identified. The pancreas is mostly obscured by overlying bowel gas. The liver echogenicity is predominantly homogeneous. The gallbladder is contracted and the wall thickness is upper range of normal. No shadowing gallstones or pericholecystic fluid identified. There is no pathologic biliary dilatation observed. The hepatic veins and portal vein are patent with normal direction of flow. Hepatic arteries are patent. IVC and aorta caliber are normal. The right kidney measures 10.6 cm in length with normal echogenicity and no evidence of hydronephrosis. The common bile duct diameter is approximately 2 mm.IMPRESSIONNo sonographic evidence of cholelithiasis or cholecystitis. No peripancreatic fluid collections. Unremarkable right upper quadrant ultrasound.Electronically signed by: PEARL CHOW (Jan 30, 2021 14:16:28)
[2021-01-30] MEDS: ZOFRAN INJ 4 MG VIAL IVP PRN (14:22)
--- NOTE | 2021-01-30 14:31 | MRI ---
HISTORYPANCREATITISSTUDYMRCPCOMPARISON br.br 01/30/2021TECHNIQUEMultiplanar multi sequences images through the abdomen were performed without contrast and MRCP protocol with 3D MPGR images was also performed.FINDINGSThere is no evidence of pleural effusions. The liver measuring length approximately 18 centimeters and the spleen 11 centimeters. There is no significant fatty liver. There is no evidence of adrenal masses. There bilateral normal-sized kidneys without hydronephrosis no retroperitoneal masses.The gallbladder is normal, there is no gallstones, no significant wall thickening or pericholecystic fluid. There is no significant intrahepatic biliary dilatation. The common bile duct and is normal in size measuring in the distal aspect 3 millimeters. There is no suspicious for filling defects in the common bile duct. The pancreatic duct is no significant dilated measuring approximately 2 millimeters. The pancreas demonstrate no focal cystic lesions. There is mild stranding at the pancreatic head with mild edema and trace amount of fluid consistent with acute pancreatitis. There is also a small amount of fluid along the left perirenal region. There is normal signal of the portal vein. The stomach is not distended. There is fluid tracking along the right paracolic gutter new since prior study.IMPRESSIONNo cholelithiasis or cholecystitis. No intra or extrahepatic biliary dilatation, no suspicious for filling defects in the common bile duct.Mild diffuse edema of the pancreas with peripancreatic fluid right more than left extending along the right paracolic gutter. No drainable collections.Electronically signed by: Kay Bean (Jan 30, 2021 14:28:34)
[2021-01-30] MEDS: PHENERGAN INJ 25 MG IM PRN (20:44)
[2021-01-31] MEDS: K-RIDER 10 MEQ/NS 100 ML 10 MEQ/100 ML BAG IV PRN ×2 (01:01→02:37)
[2021-01-31] MEDS: DEMEROL INJ IVP PRN ×3 (01:51→20:55)
[2021-01-31] MEDS: ZOFRAN INJ 4 MG VIAL IVP PRN (01:55)
[2021-01-31 05:14] LABS: BASOPHILS % (AUTO) 0.3 % (0.2-1.0); EOSINOPHILS # (AUTO) 0.1 x10^3/uL (0.0-0.2); EOSINOPHILS % (AUTO) 2.2 % (0.9-2.9); HEMATOCRIT 30.2 % (36.0-47.0); HEMOGLOBIN 10.8 g/dL (12.0-16.0); LYMPHOCYTES # (AUTO) 1.1 X10^3/uL (1.3-2.9); LYMPHOCYTES % (AUTO) 28.2 % (21.0-51.0); MEAN CORPUSCULAR HEMOGLOBIN 35.6 pg (27.0-34.0); MEAN CORPUSCULAR HGB CONC 35.9 g/dL (33.0-35.0); MEAN PLATELET VOLUME 9.1 fL (7.4-11.0); MONOCYTES # (AUTO) 0.5 x10^3/uL (0.3-0.8); MONOCYTES % (AUTO) 12.6 % (0.0-13.0); NEUTROPHILS # (AUTO) 2.2 x10^3/uL (2.2-4.8); NEUTROPHILS % (AUTO) 56.7 % (42.0-75.0); PLATELET COUNT 131 X10^3/uL (150.0-450.0); RED BLOOD COUNT 3.05 X10^6/uL (3.5-5.4); RED CELL DISTRIBUTION WIDTH 12.9 % (11.6-16.5); WHITE BLOOD COUNT 3.9 X10^3/uL (3.6-10.0)
[2021-01-31 05:35] LABS: ALANINE AMINOTRANSFERASE 29 Units/L (12-78); ALBUMIN 3.1 g/dL (3.4-5.0); ALKALINE PHOSPHATASE 60 Units/L (46-116); AMYLASE 245 Units/L (25-115); ASPARTATE AMINO TRANSFERASE 29 Units/L (15-37); BLOOD UREA NITROGEN 4 mg/dL (7-18); CALCIUM 9.1 mg/dL (8.5-10.1); CARBON DIOXIDE 23.2 mmol/L (21-32); CHLORIDE 98 mmol/L (98-107); COR CA(FOR HYPOALB) 9.8 mg/dL (8.5-10.1); CREATININE 0.42 mg/dL (0.55-1.02); MAGNESIUM 1.8 mg/dL (1.7-2.9); SODIUM 133 mmol/L (136-145); eGFR NON BLACK RACES > 60 (>60)
[2021-01-31 05:41] LABS: LIPASE 2396 Units/L (73-393)
[2021-01-31] MEDS: NS 1000 ML 1,000 ML IV SCH ×4 (06:10→21:56)
[2021-01-31] MEDS: PROTONIX INJ 40 MG VIAL IVP SCH ×2 (08:36→20:48)
--- NOTE | 2021-01-31 14:29 | NM ---
Nuclear medicine HIDA scan with ejection fractionIndication:[Abdominal pain]Comparison:[Ultrasound on 01/30/2021.]Technique: Coronal scintigraphic images of the abdomen were obtained after the intravenous administration of [5.5] mCi of technetium labeled Choletec.Following distention of the gallbladder with radiotracer the patient drank 8 oz of Ensure with serial coronal scintigraphic images of the abdomen obtained.Findings:Homogeneous uptake of radiotracer is seen throughout the liver.The intrabiliary ductal system is observed normally. The common hepatic and common bile duct grossly appear unremarkable with normal transit of radiotracer into the small bowell. The gallbladder is observed to fill normally.After oral administration of Ensure, a gallbladder ejection fraction of [36]% was observed. (normal ejection fraction is > 30%)IMPRESSION:1. Normal hepatobiliary imaging scan.2. Borderline low gallbladder ejection fraction.Electronically signed by: JAVIER JC (Jan 31, 2021 14:27:04)
[2021-01-31] MEDS: MAGNESIUM SULFATE 1 GRAM/100 mL PREMIX 1 G/100 ML BAG IV PRN ×2 (15:57→18:00)
--- NOTE | 2021-01-31 20:12 | PCM.PROG ---
Progress Note - Progress Note for Day of Date of Exam: 01/30/21 - Subjective Subjective: Patient is a 40 year old white female who was admitted due to acute pancreatitis and abdominal pain. Patient continues to be NPO due to elevated A&L. HIDA scan and US GB pending. Patient continues to report abdominal pain; continuing to require IV pain meds. No other concerns at present. - Past Medical Family Social History Past Med/Fam/Surg Hx: No changes since H&P Allergies: Allergies No Known Drug Allergies Allergy (Verified 11/11/19 17:33) - Review of Systems ROS: No change since H&P - Vital Signs and I&O's Vital Signs: Temperature 98.0 F Pulse Rate [Left Radial] 104 Pulse Rate 95 Respiratory Rate 18 Blood Pressure [Right Arm] 150/99 Blood Pressure [Left Arm] 136/84 Blood Pressure 136/91 O2 Sat by Pulse Oximetry 100 Intake and Output: Intake & Output 01/28/21 01/29/21 01/30/21 01/31/21 23:59 23:59 23:59 23:59 Intake Total 1250 / 1250 2640 / 2640 3399 / 3399 1500 / 1500 Balance 1250 / 1250 2640 / 2640 3399 / 3399 1500 / 1500 - Physical Exam Oriented: Normal Eyes: Normal Ear: Normal Nose: Normal Throat: Normal Cardiovascular: Normal : Normal Auscultation: Bowel Sounds: Normal Palpation: Normal Tenderness: Diffuse, Moderate Skin: Normal Musculoskeletal: Normal Psychiatric: Anxiety Mood Description: Anxious Affect: Anxious Speech Pattern: Clear, Appropriate - Laboratory and Diagnostics Result Diagrams: 01/31/21 04:28 01/31/21 04:28 Labs: Laboratory WBC 3.9 X10^3/uL (3.6-10.0) 01/31/21 04:28 RBC 3.05 X10^6/uL (3.5-5.4) L 01/31/21 04:28 Hgb 10.8 g/dL (12.0-16.0) L 01/31/21 04:28 Hct 30.2 % (36.0-47.0) L 01/31/21 04:28 MCV 99.0 fL (80.0-100.0) 01/31/21 04:28 MCH 35.6 pg (27.0-34.0) H 01/31/21 04:28 MCHC 35.9 g/dL (33.0-35.0) H 01/31/21 04:28 RDW 12.9 % (11.6-16.5) 01/31/21 04:28 Plt Count 131 X10^3/uL (150.0-450.0) L 01/31/21 04:28 MPV 9.1 fL (7.4-11.0) 01/31/21 04:28 Neut % (Auto) 56.7 % (42.0-75.0) 01/31/21 04:28 Lymph % (Auto) 28.2 % (21.0-51.0) 01/31/21 04:28 [place] % (Auto) 12.6 % (0.0-13.0) 01/31/21 04:28 Eos % (Auto) 2.2 % (0.9-2.9) 01/31/21 04:28 Baso % (Auto) 0.3 % (0.2-1.0) 01/31/21 04:28 Neut # (Auto) 2.2 x10^3/uL (2.2-4.8) 01/31/21 04:28 Lymph # (Auto) 1.1 X10^3/uL (1.3-2.9) L 01/31/21 04:28 Archer # (Auto) 0.5 x10^3/uL (0.3-0.8) 01/31/21 04:28 Eos # (Auto) 0.1 x10^3/uL (0.0-0.2) 01/31/21 04:28 Baso # (Auto) 0.0 X10^3/uL (0.0-0.1) 01/31/21 04:28 Absolute Nucleated RBC 0.0 /100WBC 01/31/21 04:28 Sodium 133 mmol/L (136-145) L 01/31/21 04:28 Corrected Sodium TNP 01/31/21 04:28 Potassium 3.6 mmol/L (3.5-5.1) 01/31/21 04:28 Chloride 98 mmol/L (98-107) 01/31/21 04:28 Carbon Dioxide 23.2 mmol/L (21-32) 01/31/21 04:28 BUN 4 mg/dL (7-18) L 01/31/21 04:28 Creatinine 0.42 mg/dL (0.55-1.02) L 01/31/21 04:28 Est GFR (MDRD) Af Amer > 60 (>60) 01/31/21 04:28 Est GFR (MDRD) Non-Af > 60 (>60) 01/31/21 04:28 Glucose 84 mg/dL (65-99) 01/31/21 04:28 POC Glucose (mg/dL) 101 mg/dL (65-99) H 01/29/21 06:15 Lactic Acid 1.5 mmol/L (0.4-2.0) 01/29/21 11:48 Calcium 9.1 mg/dL (8.5-10.1) 01/31/21 04:28 Corrected Calcium 9.8 mg/dL (8.5-10.1) 01/31/21 04:28 Magnesium 1.8 mg/dL (1.7-2.9) 01/31/21 04:28 Total Bilirubin 0.50 mg/dL (0.2-1.0) 01/31/21 04:28 AST 29 Units/L (15-37) 01/31/21 04:28 ALT 29 Units/L (12-78) 01/31/21 04:28 Alkaline Phosphatase 60 Units/L (46-116) 01/31/21 04:28 Total Protein 7.0 g/dL (6.4-8.2) 01/31/21 04:28 Albumin 3.1 g/dL (3.4-5.0) L 01/31/21 04:28 Globulin 3.9 g/dL (2.5-4.5) 01/31/21 04:28 Albumin/Globulin Ratio 0.8 Ratio (1.1-2.1) L 01/31/21 04:28 Amylase 245 Units/L (25-115) H 01/31/21 04:28 Lipase 2396 Units/L (73-393) H 01/31/21 04:28 Ethyl Alcohol mg/dL < 3.0 mg/dL (0-19.9) 01/28/21 16:25 SARS-CoV-2 (PCR) Negative (NEGATIVE) 01/28/21 17:20 Influenza Type A (PCR) Negative (NEGATIVE) 01/28/21 17:20 Influenza Type B (PCR) Negative (NEGATIVE) 01/28/21 17:20 RSV (PCR) Negative (NEGATIVE) 01/28/21 17:20 - Plan (1) Acute pancreatitis Status: Acute Qualifiers: Pancreatitis type: alcohol induced Acute pancreatitis complication: no infection or necrosis Qualified Code(s): K85.20 - Alcohol induced acute pancreatitis without necrosis or infection Plan: IV HYDRATION, STRICT I& OS. PPI THERAPY, PAIN CONTROL, NPO. HIDA AND US GB PENDING. REPEAT AM LABS (2) Acute hyponatremia Status: Acute (3) Abdominal pain, acute, generalized Status: Acute (4) Abdominal pain Status: Acute Qualifiers: Abdominal location: right upper quadrant Qualified Code(s): R10.11 - Right upper quadrant pain (5) Hypokalemia Status: Acute
[2021-02-01] MEDS: DEMEROL INJ IVP PRN ×5 (01:31→20:01)
[2021-02-01] MEDS: ZOFRAN INJ 4 MG VIAL IVP PRN ×2 (02:05→14:11)
[2021-02-01] MEDS: NS 1000 ML 1,000 ML IV SCH ×5 (05:55→22:03)
[2021-02-01 06:17] LABS: BASOPHILS % (AUTO) 0.4 % (0.2-1.0); EOSINOPHILS # (AUTO) 0.1 x10^3/uL (0.0-0.2); EOSINOPHILS % (AUTO) 2.6 % (0.9-2.9); HEMATOCRIT 30.7 % (36.0-47.0); HEMOGLOBIN 10.8 g/dL (12.0-16.0); LYMPHOCYTES # (AUTO) 1.2 X10^3/uL (1.3-2.9); LYMPHOCYTES % (AUTO) 28.5 % (21.0-51.0); MEAN CORPUSCULAR HEMOGLOBIN 35.2 pg (27.0-34.0); MEAN CORPUSCULAR HGB CONC 35.2 g/dL (33.0-35.0); MEAN CORPUSCULAR VOLUME 100.1 fL (80.0-100.0); MEAN PLATELET VOLUME 8.3 fL (7.4-11.0); MONOCYTES # (AUTO) 0.7 x10^3/uL (0.3-0.8); MONOCYTES % (AUTO) 15.8 % (0.0-13.0); NEUTROPHILS # (AUTO) 2.2 x10^3/uL (2.2-4.8); NEUTROPHILS % (AUTO) 52.7 % (42.0-75.0); PLATELET COUNT 200 X10^3/uL (150.0-450.0); RED BLOOD COUNT 3.07 X10^6/uL (3.5-5.4); RED CELL DISTRIBUTION WIDTH 12.9 % (11.6-16.5); WHITE BLOOD COUNT 4.1 X10^3/uL (3.6-10.0)
[2021-02-01 06:19] LABS: ALANINE AMINOTRANSFERASE 29 Units/L (12-78); ALBUMIN 3.1 g/dL (3.4-5.0); ALKALINE PHOSPHATASE 60 Units/L (46-116); AMYLASE 212 Units/L (25-115); ASPARTATE AMINO TRANSFERASE 27 Units/L (15-37); BLOOD UREA NITROGEN 6 mg/dL (7-18); CARBON DIOXIDE 24.7 mmol/L (21-32); CHLORIDE 99 mmol/L (98-107); COR CA(FOR HYPOALB) 9.7 mg/dL (8.5-10.1); CREATININE 0.44 mg/dL (0.55-1.02); MAGNESIUM 2.1 mg/dL (1.7-2.9); SODIUM 136 mmol/L (136-145); TOTAL PROTEIN 7.1 g/dL (6.4-8.2); eGFR NON BLACK RACES > 60 (>60)
[2021-02-01 06:31] LABS: LIPASE 2114 Units/L (73-393)
[2021-02-01] MEDS: PHENERGAN INJ 25 MG IM PRN ×2 (10:11→16:21)
[2021-02-01] MEDS: NICOTINE PATCH TD SCH (10:14)
[2021-02-01] MEDS: PROTONIX INJ 40 MG VIAL IVP SCH ×2 (10:16→20:05)
[2021-02-01] MEDS: LEVSIN/MAALOX/LIDOC VISC PO PRN (16:01)
[2021-02-01] MEDS: NYSTATIN SUSP PO SCH ×2 (16:11→20:12)
[2021-02-02] MEDS: DEMEROL INJ IVP PRN ×6 (00:07→21:49)
[2021-02-02] MEDS: LEVSIN/MAALOX/LIDOC VISC PO PRN ×3 (00:15→18:08)
[2021-02-02] MEDS: PHENERGAN INJ 25 MG IM PRN ×2 (00:16→13:45)
[2021-02-02] MEDS: NS 1000 ML 1,000 ML IV SCH (05:52)
[2021-02-02 06:33] LABS: BASOPHILS % (AUTO) 0.6 % (0.2-1.0); EOSINOPHILS # (AUTO) 0.2 x10^3/uL (0.0-0.2); EOSINOPHILS % (AUTO) 4.8 % (0.9-2.9); HEMATOCRIT 29.7 % (36.0-47.0); HEMOGLOBIN 10.5 g/dL (12.0-16.0); LYMPHOCYTES # (AUTO) 1.3 X10^3/uL (1.3-2.9); LYMPHOCYTES % (AUTO) 36.8 % (21.0-51.0); MEAN CORPUSCULAR HEMOGLOBIN 35.3 pg (27.0-34.0); MEAN CORPUSCULAR HGB CONC 35.2 g/dL (33.0-35.0); MEAN CORPUSCULAR VOLUME 100.1 fL (80.0-100.0); MEAN PLATELET VOLUME 8.6 fL (7.4-11.0); MONOCYTES # (AUTO) 0.7 x10^3/uL (0.3-0.8); MONOCYTES % (AUTO) 18.2 % (0.0-13.0); NEUTROPHILS # (AUTO) 1.4 x10^3/uL (2.2-4.8); NEUTROPHILS % (AUTO) 39.6 % (42.0-75.0); PLATELET COUNT 238 X10^3/uL (150.0-450.0); RED BLOOD COUNT 2.97 X10^6/uL (3.5-5.4); RED CELL DISTRIBUTION WIDTH 12.8 % (11.6-16.5); WHITE BLOOD COUNT 3.6 X10^3/uL (3.6-10.0)
[2021-02-02 06:50] LABS: ALANINE AMINOTRANSFERASE 24 Units/L (12-78); ALBUMIN 2.9 g/dL (3.4-5.0); ALKALINE PHOSPHATASE 57 Units/L (46-116); AMYLASE 125 Units/L (25-115); ASPARTATE AMINO TRANSFERASE 25 Units/L (15-37); BLOOD UREA NITROGEN 5 mg/dL (7-18); CALCIUM 9.1 mg/dL (8.5-10.1); CHLORIDE 101 mmol/L (98-107); CREATININE 0.46 mg/dL (0.55-1.02); LIPASE 795 Units/L (73-393); SODIUM 138 mmol/L (136-145); TOTAL PROTEIN 6.7 g/dL (6.4-8.2); eGFR NON BLACK RACES > 60 (>60)
[2021-02-02] MEDS: PROTONIX INJ 40 MG VIAL IVP SCH ×2 (08:55→21:29)
[2021-02-02] MEDS: NYSTATIN SUSP PO SCH ×4 (08:55→21:29)
[2021-02-02] MEDS: NICOTINE PATCH TD SCH (08:58)
[2021-02-02] MEDS: ZOFRAN INJ 4 MG VIAL IVP PRN ×2 (08:59→18:08)
[2021-02-02] MEDS: NS + KCL 20 MEQ/L 1,000 ML IV SCH ×2 (10:08→18:07)
[2021-02-03] MEDS: LEVSIN/MAALOX/LIDOC VISC PO PRN ×4 (00:06→21:19)
[2021-02-03] MEDS: DEMEROL INJ IVP PRN ×5 (02:14→21:20)
[2021-02-03] MEDS: NS + KCL 20 MEQ/L 1,000 ML IV SCH (02:19)
[2021-02-03 06:12] LABS: BASOPHILS % (AUTO) 0.6 % (0.2-1.0); EOSINOPHILS # (AUTO) 0.2 x10^3/uL (0.0-0.2); EOSINOPHILS % (AUTO) 4.9 % (0.9-2.9); HEMATOCRIT 32.8 % (36.0-47.0); HEMOGLOBIN 11.6 g/dL (12.0-16.0); LYMPHOCYTES # (AUTO) 1.4 X10^3/uL (1.3-2.9); LYMPHOCYTES % (AUTO) 41.3 % (21.0-51.0); MEAN CORPUSCULAR HEMOGLOBIN 34.9 pg (27.0-34.0); MEAN CORPUSCULAR HGB CONC 35.2 g/dL (33.0-35.0); MEAN CORPUSCULAR VOLUME 99.2 fL (80.0-100.0); MEAN PLATELET VOLUME 8.4 fL (7.4-11.0); MONOCYTES # (AUTO) 0.6 x10^3/uL (0.3-0.8); MONOCYTES % (AUTO) 17.8 % (0.0-13.0); NEUTROPHILS # (AUTO) 1.2 x10^3/uL (2.2-4.8); NEUTROPHILS % (AUTO) 35.4 % (42.0-75.0); PLATELET COUNT 288 X10^3/uL (150.0-450.0); RED BLOOD COUNT 3.31 X10^6/uL (3.5-5.4); RED CELL DISTRIBUTION WIDTH 12.9 % (11.6-16.5); WHITE BLOOD COUNT 3.4 X10^3/uL (3.6-10.0)
[2021-02-03 06:27] LABS: ALANINE AMINOTRANSFERASE 26 Units/L (12-78); ALBUMIN 3.2 g/dL (3.4-5.0); ALKALINE PHOSPHATASE 61 Units/L (46-116); AMYLASE 138 Units/L (25-115); ASPARTATE AMINO TRANSFERASE 20 Units/L (15-37); BLOOD UREA NITROGEN 3 mg/dL (7-18); CALCIUM 9.5 mg/dL (8.5-10.1); CARBON DIOXIDE 27.8 mmol/L (21-32); CHLORIDE 101 mmol/L (98-107); COR CA(FOR HYPOALB) 10.1 mg/dL (8.5-10.1); CREATININE 0.51 mg/dL (0.55-1.02); LIPASE 1109 Units/L (73-393); SODIUM 139 mmol/L (136-145); TOTAL PROTEIN 7.3 g/dL (6.4-8.2); eGFR NON BLACK RACES > 60 (>60)
[2021-02-03] MEDS ORDERED: NS IV SCH ×2 (08:00)
[2021-02-03] MEDS ORDERED: KCL IV SCH ×2 (08:00)
[2021-02-03] MEDS ORDERED: POTASSIUM CHLORIDE IV SCH ×2 (08:00)
[2021-02-03] MEDS: NYSTATIN SUSP PO SCH ×4 (09:00→21:10)
[2021-02-03] MEDS: PROTONIX INJ 40 MG VIAL IVP SCH ×2 (09:00→21:19)
[2021-02-03] MEDS: NICOTINE PATCH TD SCH (09:26)
--- NOTE | 2021-02-03 09:36 | PCM.PROG ---
Progress Note - Progress Note for Day of Date of Exam: 02/02/21 - Subjective Subjective: Patient is a 40 year old white female who was admitted due to acute pancreatitis and abdominal pain. Patient continues to be NPO due to elevated A&L; however these results have trended downward. Will start clear liquid diet. HIDA scan normal. Patient continues to report abdominal pain; continuing to require IV pain meds; however she does report improvement.. No other concerns at present. - Past Medical Family Social History Past Med/Fam/Surg Hx: No changes since H&P Allergies: Allergies No Known Drug Allergies Allergy (Verified 11/11/19 17:33) - Review of Systems ROS: No change since H&P - Vital Signs and I&O's Vital Signs: Temperature 98.8 F Pulse Rate [Left Radial] 96 Pulse Rate 95 Respiratory Rate 20 Blood Pressure [Right Arm] 135/84 Blood Pressure [Left Arm] 142/93 Blood Pressure 136/91 O2 Sat by Pulse Oximetry 94 Intake and Output: Intake & Output 01/31/21 02/01/21 02/02/21 02/03/21 23:59 23:59 23:59 23:59 Intake Total 2800 / 2800 1075 / 1075 6578 / 6578 420 / 420 Balance 2800 / 2800 1075 / 1075 6578 / 6578 420 / 420 - Physical Exam Oriented: Normal Eyes: Normal Ear: Normal Nose: Normal Throat: Normal Cardiovascular: Normal : Normal Auscultation: Bowel Sounds: Normal Tenderness: Diffuse, Moderate Skin: Normal Musculoskeletal: Normal Psychiatric: Anxiety Mood Description: Anxious Affect: Anxious Speech Pattern: Clear, Appropriate - Laboratory and Diagnostics Result Diagrams: 02/03/21 05:13 02/03/21 05:13 Labs: Laboratory WBC 3.4 X10^3/uL (3.6-10.0) L 02/03/21 05:13 RBC 3.31 X10^6/uL (3.5-5.4) L 02/03/21 05:13 Hgb 11.6 g/dL (12.0-16.0) L 02/03/21 05:13 Hct 32.8 % (36.0-47.0) L 02/03/21 05:13 MCV 99.2 fL (80.0-100.0) 02/03/21 05:13 MCH 34.9 pg (27.0-34.0) H 02/03/21 05:13 MCHC 35.2 g/dL (33.0-35.0) H 02/03/21 05:13 RDW 12.9 % (11.6-16.5) 02/03/21 05:13 Plt Count 288 X10^3/uL (150.0-450.0) 02/03/21 05:13 MPV 8.4 fL (7.4-11.0) 02/03/21 05:13 Neut % (Auto) 35.4 % (42.0-75.0) L 02/03/21 05:13 Lymph % (Auto) 41.3 % (21.0-51.0) 02/03/21 05:13 [place] % (Auto) 17.8 % (0.0-13.0) H 02/03/21 05:13 Eos % (Auto) 4.9 % (0.9-2.9) H 02/03/21 05:13 Baso % (Auto) 0.6 % (0.2-1.0) 02/03/21 05:13 Neut # (Auto) 1.2 x10^3/uL (2.2-4.8) L 02/03/21 05:13 Lymph # (Auto) 1.4 X10^3/uL (1.3-2.9) 02/03/21 05:13 [place] # (Auto) 0.6 x10^3/uL (0.3-0.8) 02/03/21 05:13 Eos # (Auto) 0.2 x10^3/uL (0.0-0.2) 02/03/21 05:13 Baso # (Auto) 0.0 X10^3/uL (0.0-0.1) 02/03/21 05:13 Absolute Nucleated RBC 0.2 /100WBC 02/03/21 05:13 Sodium 139 mmol/L (136-145) 02/03/21 05:13 Corrected Sodium TNP 02/03/21 05:13 Potassium 2.9 mmol/L (3.5-5.1) L* 02/03/21 05:13 Chloride 101 mmol/L (98-107) 02/03/21 05:13 Carbon Dioxide 27.8 mmol/L (21-32) 02/03/21 05:13 BUN 3 mg/dL (7-18) L 02/03/21 05:13 Creatinine 0.51 mg/dL (0.55-1.02) L 02/03/21 05:13 Est GFR (MDRD) Af Amer > 60 (>60) 02/03/21 05:13 Est GFR (MDRD) Non-Af > 60 (>60) 02/03/21 05:13 Glucose 101 mg/dL (65-99) H 02/03/21 05:13 POC Glucose (mg/dL) 101 mg/dL (65-99) H 01/29/21 06:15 Lactic Acid 1.5 mmol/L (0.4-2.0) 01/29/21 11:48 Calcium 9.5 mg/dL (8.5-10.1) 02/03/21 05:13 Corrected Calcium 10.1 mg/dL (8.5-10.1) 02/03/21 05:13 Magnesium 2.0 mg/dL (1.7-2.9) 02/02/21 05:27 Total Bilirubin 0.20 mg/dL (0.2-1.0) 02/03/21 05:13 AST 20 Units/L (15-37) 02/03/21 05:13 ALT 26 Units/L (12-78) 02/03/21 05:13 Alkaline Phosphatase 61 Units/L (46-116) 02/03/21 05:13 Total Protein 7.3 g/dL (6.4-8.2) 02/03/21 05:13 Albumin 3.2 g/dL (3.4-5.0) L 02/03/21 05:13 Globulin 4.1 g/dL (2.5-4.5) 02/03/21 05:13 Albumin/Globulin Ratio 0.8 Ratio (1.1-2.1) L 02/03/21 05:13 Amylase 138 Units/L (25-115) H 02/03/21 05:13 Lipase 1109 Units/L (73-393) H 02/03/21 05:13 Ethyl Alcohol mg/dL < 3.0 mg/dL (0-19.9) 01/28/21 16:25 SARS-CoV-2 (PCR) Negative (NEGATIVE) 01/28/21 17:20 Influenza Type A (PCR) Negative (NEGATIVE) 01/28/21 17:20 Influenza Type B (PCR) Negative (NEGATIVE) 01/28/21 17:20 RSV (PCR) Negative (NEGATIVE) 01/28/21 17:20 - Plan (1) Acute pancreatitis Status: Acute Qualifiers: Pancreatitis type: alcohol induced Acute pancreatitis complication: no infection or necrosis Qualified Code(s): K85.20 - Alcohol induced acute pancreatitis without necrosis or infection Plan: IV HYDRATION, STRICT I& OS. PPI THERAPY, PAIN CONTROL, NPO. HIDA AND US GB PENDING. REPEAT AM LABS (2) Acute hyponatremia Status: Acute (3) Abdominal pain, acute, generalized Status: Acute (4) Abdominal pain Status: Acute Qualifiers: Abdominal location: right upper quadrant Qualified Code(s): R10.11 - Right upper quadrant pain (5) Hypokalemia Status: Acute Plan: REPLACE
--- NOTE | 2021-02-03 10:39 | CT ---
HISTORY:Abdominal painStudy: CT abdomen and pelvis without contrastComparison:CT 01/28/2021, MRI 01/30/2021, ultrasound 01/30/2021Technique: Multiple axial images of the abdomen and pelvis were obtained without IV contrast. Oral contrast was administered. Dose reduction techniques including Automated Exposure Control (AEC) and adjustment of mA and kV were utilized.FINDINGS:Please note evaluation is limited without IV contrast.The lung bases are clear. The unenhanced spleen, liver and adrenal glands are unremarkable. There is very minimal stranding around the pancreatic head, felt to be improved compared to previous MRI. No pseudocyst. The gallbladder is normal. There are punctate nonobstructing left renal calculi. Ureters appear normal.No free intraperitoneal air. No evidence of intestinal obstruction or inflammation. Appendix is normal. Oral contrast reaches the distal colon. No ascites.The soft tissues and osseous structures are intact. Limited evaluation of vascular structures due to lack of IV contrast. No pathologically enlarged lymph nodes are identified. Normal urinary bladder.IMPRESSION ABDOMEN/PELVIS:Very minimal stranding around the pancreatic head, felt to be improved compared to previous MRI. No fluid collection to suggest pseudocyst.Punctate nonobstructing left renal calculi.Electronically signed by: NE VILLEGAS (Feb 03, 2021 10:37:35)
[2021-02-03] MEDS: NS + KCL 40 MEQ/L 1,000 ML IV SCH ×2 (14:15→21:18)
[2021-02-04] MEDS: DEMEROL INJ IVP PRN ×6 (02:03→21:25)
[2021-02-04] MEDS: ZOFRAN INJ 4 MG VIAL IVP PRN ×2 (02:03→10:00)
[2021-02-04] MEDS: LEVSIN/MAALOX/LIDOC VISC PO PRN ×3 (06:07→21:22)
[2021-02-04 06:57] LABS: BASOPHILS % (AUTO) 0.7 % (0.2-1.0); EOSINOPHILS # (AUTO) 0.2 x10^3/uL (0.0-0.2); EOSINOPHILS % (AUTO) 4.5 % (0.9-2.9); HEMATOCRIT 31.8 % (36.0-47.0); LYMPHOCYTES # (AUTO) 1.4 X10^3/uL (1.3-2.9); LYMPHOCYTES % (AUTO) 41.2 % (21.0-51.0); MEAN CORPUSCULAR HEMOGLOBIN 34.4 pg (27.0-34.0); MEAN CORPUSCULAR HGB CONC 34.6 g/dL (33.0-35.0); MEAN CORPUSCULAR VOLUME 99.3 fL (80.0-100.0); MEAN PLATELET VOLUME 8.7 fL (7.4-11.0); MONOCYTES # (AUTO) 0.6 x10^3/uL (0.3-0.8); MONOCYTES % (AUTO) 17.3 % (0.0-13.0); NEUTROPHILS # (AUTO) 1.2 x10^3/uL (2.2-4.8); NEUTROPHILS % (AUTO) 36.3 % (42.0-75.0); PLATELET COUNT 310 X10^3/uL (150.0-450.0); RED BLOOD COUNT 3.21 X10^6/uL (3.5-5.4); RED CELL DISTRIBUTION WIDTH 12.9 % (11.6-16.5); WHITE BLOOD COUNT 3.4 X10^3/uL (3.6-10.0)
[2021-02-04 07:15] LABS: ALANINE AMINOTRANSFERASE 21 Units/L (12-78); ALKALINE PHOSPHATASE 58 Units/L (46-116); AMYLASE 96 Units/L (25-115); ASPARTATE AMINO TRANSFERASE 18 Units/L (15-37); BLOOD UREA NITROGEN 2 mg/dL (7-18); CALCIUM 9.4 mg/dL (8.5-10.1); CARBON DIOXIDE 26.3 mmol/L (21-32); CHLORIDE 102 mmol/L (98-107); COR CA(FOR HYPOALB) 10.2 mg/dL (8.5-10.1); CREATININE 0.51 mg/dL (0.55-1.02); LIPASE 737 Units/L (73-393); SODIUM 138 mmol/L (136-145); TOTAL PROTEIN 6.9 g/dL (6.4-8.2); eGFR NON BLACK RACES > 60 (>60)
[2021-02-04] MEDS: NYSTATIN SUSP PO SCH ×5 (08:13→21:24)
[2021-02-04] MEDS: NICOTINE PATCH TD SCH (08:25)
[2021-02-04] MEDS: NS + KCL 40 MEQ/L 1,000 ML IV SCH ×4 (08:26→23:12)
[2021-02-04] MEDS: PROTONIX INJ 40 MG VIAL IVP SCH ×2 (08:26→21:24)
[2021-02-04 15:11] VITALS: BMI 21.4
[2021-02-05] MEDS: DEMEROL INJ IVP PRN ×3 (01:56→09:35)
[2021-02-05] MEDS: LEVSIN/MAALOX/LIDOC VISC PO PRN (05:54)
[2021-02-05 06:41] LABS: BASOPHILS % (AUTO) 0.7 % (0.2-1.0); EOSINOPHILS # (AUTO) 0.1 x10^3/uL (0.0-0.2); EOSINOPHILS % (AUTO) 3.8 % (0.9-2.9); HEMATOCRIT 31.9 % (36.0-47.0); HEMOGLOBIN 11.3 g/dL (12.0-16.0); LYMPHOCYTES # (AUTO) 1.3 X10^3/uL (1.3-2.9); LYMPHOCYTES % (AUTO) 39.8 % (21.0-51.0); MEAN CORPUSCULAR HEMOGLOBIN 35.3 pg (27.0-34.0); MEAN CORPUSCULAR HGB CONC 35.4 g/dL (33.0-35.0); MEAN CORPUSCULAR VOLUME 99.6 fL (80.0-100.0); MEAN PLATELET VOLUME 8.4 fL (7.4-11.0); MONOCYTES # (AUTO) 0.4 x10^3/uL (0.3-0.8); MONOCYTES % (AUTO) 11.9 % (0.0-13.0); NEUTROPHILS # (AUTO) 1.5 x10^3/uL (2.2-4.8); NEUTROPHILS % (AUTO) 43.8 % (42.0-75.0); PLATELET COUNT 357 X10^3/uL (150.0-450.0); RED CELL DISTRIBUTION WIDTH 12.9 % (11.6-16.5); WHITE BLOOD COUNT 3.4 X10^3/uL (3.6-10.0)
[2021-02-05 06:58] LABS: ALANINE AMINOTRANSFERASE 22 Units/L (12-78); ALBUMIN 3.2 g/dL (3.4-5.0); ALKALINE PHOSPHATASE 62 Units/L (46-116); AMYLASE 70 Units/L (25-115); ASPARTATE AMINO TRANSFERASE 22 Units/L (15-37); BLOOD UREA NITROGEN 2 mg/dL (7-18); CALCIUM 9.5 mg/dL (8.5-10.1); CARBON DIOXIDE 26.7 mmol/L (21-32); CHLORIDE 101 mmol/L (98-107); COR CA(FOR HYPOALB) 10.1 mg/dL (8.5-10.1); CREATININE 0.58 mg/dL (0.55-1.02); LIPASE 464 Units/L (73-393); SODIUM 137 mmol/L (136-145); TOTAL PROTEIN 7.3 g/dL (6.4-8.2); eGFR NON BLACK RACES > 60 (>60)
[2021-02-05 07:55] VITALS: BP 113/72
[2021-02-05] MEDS: PROTONIX INJ 40 MG VIAL IVP SCH (09:02)
[2021-02-05] MEDS: NYSTATIN SUSP PO SCH (09:02)
[2021-02-05] MEDS: NICOTINE PATCH TD SCH (09:02)
== END 2021-02-05 10:55 | disposition home or self-care (01) | DRG 439 ==
LOC: ER 16:05 → MED/SURG 20:29
PROVIDERS: ADMIT Internal Medicine; ATTEND Internal Medicine
DX: E87.1 Hypo-osmolality and hyponatremia; Z20.822 Contact with and (suspected) exposure to COVID-19; Z86.16 Personal history of COVID-19; F41.9 Anxiety disorder, unspecified; E86.0 Dehydration; K85.20 Alcohol induced acute pancreatitis without necrosis or infection; E87.6 Hypokalemia

== ENCOUNTER 2021-10-17 01:04 | Inpatient (IN) ==
--- NOTE | 2021-10-17 01:39 | ED.ABDFE ---
HPI Time Seen Time Seen by Provider: 10/17/21 01:39 PCP Primary Care Physician: DRE HPI Comment HPI Comment: PATIENT IS 41YR OLD FEMALE IN ER WITH DIFFUSED ABDOMINAL PAIN TIMES ONE WEEK WITH NAUSEA. PATIENT HAVE HISTORY OF PANCREATIS. DENIES FEVER OR DYSURIA. PAIN SHARP, 10/10 RADIATING TO THE BACK. NOT HOLDING DOWN MEDS OR FLUID. Complaint Doctors Chief Complaint Comments: DIFFUSED ABDOMINAL PAIN AND BACK PAIN TIMES ONE WEEK WITH NAUSEA. Chief Complaint:: PT AMBULATORY IN ED WITH C/O DIFFUSE ABD AND BACK PAIN x1 WEEK. PT STATES "IT FEELS LIKE I GOT PANCREATITIS AGAIN". PT C/O NAUSEA AND PAIN THAT WORSENS WITH FOOD. Self Treatment fo Chief Complaint: IBUPROFEN 800MG @ 1800 COVID-19 Coronavirus risk:travel/contact w/high risk person: No Has patient experienced Coronavirus symptoms: No Source History Provided: Patient Mode of arrival Mode of Arrival: Ambulatory Timing Onset of Chief Complaint: 10/13/21 PMH PMH Past Medical History: Yes Past Medical History: Anxiety, GERD, Headaches, Hypertension and PUD Past Medical History Comment: NEUROPATHY Past Surgical History: Yes Surgical History: Other Past Surgical History Comment: LUMPS REMOVED FROM BILAT BREAST Family History History of Family Medical Conditions: Yes Family Medical History: Cancer Social History Type of Tobacco Use: VAPE Alcohol Use: Occasionally Do you use any recreational Drugs:: No Travel Risk Coronavirus risk:travel/contact w/high risk person: No Has patient experienced Coronavirus symptoms: No Infectious screening Have you traveled outside the country in the last 6 months?: No Isolation: Standard PE Vital Signs Vitals: Temperature 98.1 F Pulse Rate 73 Respiratory Rate 12 Blood Pressure [Right Arm] 134/72 Blood Pressure [Left Arm] 154/95 Blood Pressure 155/105 O2 Sat by Pulse Oximetry 100 General Limitations: No Limitations General Appearance: Alert and In No Apparent Distress Head Head Exam: Normal Inspection and Atraumatic Eyes Eye exam: Normal Appearance; negative Scleral Icterus or Conjunctival Injection Respiratory Respiratory Exam: Normal Lung Sounds Bilat; negative Accessory Muscle Use, Chest Wall Tenderness or Respiratory Distress Cardiovascular Cardiovascular Exam: Regular Rate, Normal Rhythm and Normal Heart Sounds; negative Systolic Murmur or Diastolic Murmur Abdominal Exam Abdominal Exam: Normal Bowel Sounds, Soft and Tenderness Abdominal Tenderness: Diffuse and Severe Rectal Rectal Exam: Deferred Back Back Exam: Normal Inspection; negative (R) CVA Tenderness or (L) CVA Tenderness Extremeties Extremities Exam: Normal Inspection and Normal Capillary Refill External Exam: Female: Deferred : Speculum Exam (Female): Deferred : Bimanual Exam (female): Deferred Neurologic Neurological Exam: Alert and Oriented X3; negative Motor Sensory Deficit Psychiatric Psychiatric Exam: Normal Affect and Normal Mood Skin Skin Exam: Dry; negative Rash MDM Differential Diagnosis Differential Diagnosis- Considerations may include:: Bowel Obstruction, Cholcy stitis, Cholelethiasis, Constipation, Diverticular disease, Gastritus/PUD, Inflammatory BD, Pancreatitis, Urinary tract infection and Urolithiasis COURSE Treatment Treatment: SEE ORDERS DONE WHILE PATIENT WAS IN ER. Consultation Consultation Comments: DISCUSSED PATIENT WITH DR. ROJAS. HE WILL ADMIT PATIENT. Education/Counseling Education/Counseling: Patient Educated On: Diagnosis ROR Labs Reviewed Laboratory Results Reviewed?: Yes Result Diagrams: 10/19/21 05:08 10/19/21 05:08 Laboratory: WBC 4.7 X10^3/uL (3.6-10.0) 10/17/21 01:50 RBC 3.67 X10^6/uL (3.5-5.4) 10/17/21 01:50 Hgb 12.9 g/dL (12.0-16.0) 10/17/21 01:50 Hct 36.5 % (36.0-47.0) 10/17/21 01:50 MCV 99.4 fL (80.0-100.0) 10/17/21 01:50 MCH 35.1 pg (27.0-34.0) H 10/17/21 01:50 MCHC 35.3 g/dL (33.0-35.0) H 10/17/21 01:50 RDW 13.7 % (11.6-16.5) 10/17/21 01:50 Plt Count 172 X10^3/uL (150.0-450.0) 10/17/21 01:50 MPV 8.2 fL (7.4-11.0) 10/17/21 01:50 Neut % (Auto) 69.0 % (42.0-75.0) 10/17/21 01:50 Lymph % (Auto) 22.2 % (21.0-51.0) 10/17/21 01:50 [place] % (Auto) 6.0 % (0.0-13.0) 10/17/21 01:50 Eos % (Auto) 2.3 % (0.9-2.9) 10/17/21 01:50 Baso % (Auto) 0.5 % (0.2-1.0) 10/17/21 01:50 Neut # (Auto) 3.2 x10^3/uL (2.2-4.8) 10/17/21 01:50 Lymph # (Auto) 1.0 X10^3/uL (1.3-2.9) L 10/17/21 01:50 Gordon # (Auto) 0.3 x10^3/uL (0.3-0.8) 10/17/21 01:50 Eos # (Auto) 0.1 x10^3/uL (0.0-0.2) 10/17/21 01:50 Baso # (Auto) 0.0 X10^3/uL (0.0-0.1) 10/17/21 01:50 Absolute Nucleated RBC 0.0 /100WBC 10/17/21 01:50 Sodium 136 mmol/L (136-145) 10/17/21 01:50 Corrected Sodium TNP 10/17/21 01:50 Potassium 3.1 mmol/L (3.5-5.1) L 10/17/21 01:50 Chloride 100 mmol/L (98-107) 10/17/21 01:50 Carbon Dioxide 23.4 mmol/L (21-32) 10/17/21 01:50 BUN 12 mg/dL (7-18) 10/17/21 01:50 Creatinine 0.82 mg/dL (0.55-1.02) 10/17/21 01:50 Est GFR (MDRD) Af Amer > 60 (>60) 10/17/21 01:50 Est GFR (MDRD) Non-Af > 60 (>60) 10/17/21 01:50 Glucose 107 mg/dL (65-99) H 10/17/21 01:50 Calcium 8.8 mg/dL (8.5-10.1) 10/17/21 01:50 Corrected Calcium TNP 10/17/21 01:50 Total Bilirubin 0.50 mg/dL (0.2-1.0) 10/17/21 01:50 AST 24 Units/L (15-37) 10/17/21 01:50 ALT 24 Units/L (12-78) 10/17/21 01:50 Alkaline Phosphatase 78 Units/L (46-116) 10/17/21 01:50 Total Protein 6.9 g/dL (6.4-8.2) 10/17/21 01:50 Albumin 3.6 g/dL (3.4-5.0) 10/17/21 01:50 Globulin 3.3 g/dL (2.5-4.5) 10/17/21 01:50 Albumin/Globulin Ratio 1.1 Ratio (1.1-2.1) 10/17/21 01:50 Amylase 149 Units/L (25-115) H 10/17/21 01:50 Lipase 1091 Units/L (73-393) H 10/17/21 01:50 Specimen Type Clean catch urine 10/17/21 03:16 Urine Color Pale yellow (YELLOW) 10/17/21 03:16 Urine Appearance Clear (CLEAR) 10/17/21 03:16 Urine pH 6.0 (5.0 - 8.0) 10/17/21 03:16 Ur Specific [place] 1.010 (1.000-1.030) 10/17/21 03:16 Urine Protein Negative (NEGATIVE) 10/17/21 03:16 Urine Glucose (UA) Negative (NEGATIVE) 10/17/21 03:16 Urine Ketones Negative (NEGATIVE) 10/17/21 03:16 Urine Blood 2+ (NEGATIVE) 10/17/21 03:16 Urine Nitrite Negative (NEGATIVE) 10/17/21 03:16 Urine Bilirubin Negative (NEGATIVE) 10/17/21 03:16 Urine Urobilinogen Normal (NORMAL) 10/17/21 03:16 Ur Leukocyte Esterase Negative (NEGATIVE) 10/17/21 03:16 Urine RBC 0-2 /HPF (0-3) 10/17/21 03:16 Urine WBC 0-2 /HPF (0-5) 10/17/21 03:16 Ur Squamous Epith Cells Rare /HPF (NEGATIVE) 10/17/21 03:16 Urine Bacteria Negative /HPF (NEGATIVE) 10/17/21 03:16 Ur Culture Indicated? No/not indicated 10/17/21 03:16 Urine Opiates Screen Negative (NEG=<300) 10/17/21 03:16 Urine Methadone Screen Negative (NEG=<300) 10/17/21 03:16 Ur Barbiturates Screen Negative (NEG=<200) 10/17/21 03:16 Ur Phencyclidine Scrn Negative (NEG=<25) 10/17/21 03:16 Ur Amphetamines Screen Negative (NEG=<1000) 10/17/21 03:16 U Benzodiazepines Scrn Negative (NEG=<200) 10/17/21 03:16 Urine Cocaine Screen Negative (NEG=<300) 10/17/21 03:16 U Marijuana (THC) Screen Negative (NEG=<50) 10/17/21 03:16 SARS-CoV-2 (PCR) Negative (NEGATIVE) 10/17/21 03:02 XRAY XRAY Interpreted by: Radiologist (REPORT NOTED.) Opioid Opioid Risk Tool Age (Josué box if 16-45): Yes History of Preadolescent Sexual Abuse: No Total: 1 Total Score Risk Category: Low Risk Copyright: Antelmo DO predicting aberrant behaviors Discharge Plan Diagnosis Discharge Problem: Abdominal pain, Acute pancreatitis Discharge Plan Patient Disposition: 09 ADMITTED INPATIENT Condition: Stable
[2021-10-17] MEDS ORDERED: DEMEROL INJ IM ONE (01:43)
[2021-10-17] MEDS ORDERED: COMPAZINE INJ IM ONE (01:43)
[2021-10-17] MEDS ORDERED: DEMEROL INJ ONE ×2 (01:47→03:50)
[2021-10-17] MEDS ORDERED: COMPAZINE INJ ONE (01:47)
[2021-10-17 02:24] LABS: BASOPHILS % (AUTO) 0.5 % (0.2-1.0); EOSINOPHILS # (AUTO) 0.1 x10^3/uL (0.0-0.2); EOSINOPHILS % (AUTO) 2.3 % (0.9-2.9); HEMATOCRIT 36.5 % (36.0-47.0); HEMOGLOBIN 12.9 g/dL (12.0-16.0); LYMPHOCYTES % (AUTO) 22.2 % (21.0-51.0); MEAN CORPUSCULAR HEMOGLOBIN 35.1 pg (27.0-34.0); MEAN CORPUSCULAR HGB CONC 35.3 g/dL (33.0-35.0); MEAN CORPUSCULAR VOLUME 99.4 fL (80.0-100.0); MEAN PLATELET VOLUME 8.2 fL (7.4-11.0); MONOCYTES # (AUTO) 0.3 x10^3/uL (0.3-0.8); NEUTROPHILS # (AUTO) 3.2 x10^3/uL (2.2-4.8); RED BLOOD COUNT 3.67 X10^6/uL (3.5-5.4); RED CELL DISTRIBUTION WIDTH 13.7 % (11.6-16.5); WHITE BLOOD COUNT 4.7 X10^3/uL (3.6-10.0)
[2021-10-17 02:31] LABS: ALANINE AMINOTRANSFERASE 24 Units/L (12-78); ALBUMIN 3.6 g/dL (3.4-5.0); ALKALINE PHOSPHATASE 78 Units/L (46-116); AMYLASE 149 Units/L (25-115); ASPARTATE AMINO TRANSFERASE 24 Units/L (15-37); BLOOD UREA NITROGEN 12 mg/dL (7-18); CALCIUM 8.8 mg/dL (8.5-10.1); CARBON DIOXIDE 23.4 mmol/L (21-32); CHLORIDE 100 mmol/L (98-107); CREATININE 0.82 mg/dL (0.55-1.02); LIPASE 1091 Units/L (73-393); SODIUM 136 mmol/L (136-145); TOTAL PROTEIN 6.9 g/dL (6.4-8.2); eGFR NON BLACK RACES > 60 (>60)
--- NOTE | 2021-10-17 03:19 | CT ---
STUDY: CT ABDOMEN AND PELVIS WITHOUT IV CONTRASTCOMPARISON: 02/03/2021TECHNIQUE: Axial images were obtained of the abdomen and pelvis without IV contrast. Sagittal and coronal reformatted images were provided. All images were reviewed in a variety of windows and levels.RADIATION REDUCTION TECHNIQUE: Automated exposure control, adjustment of the mA or kV according to patient size, or iterative reconstruction techniques were used.HISTORY: PT AMBULATORY IN ED WITH C/O DIFFUSE ABD AND BACK PAIN x1 WEEK. PT STATES "IT FEELS LIKE I GOT PANCREATITIS AGAIN". PT C/O NAUSEA AND PAIN THAT WORSENS WITH FOOD.FINDINGS:Please note that lack of IV contrast does limit evaluation of the soft tissues and vascular detail.The visualized lower lung zones are clear. The heart size is within normal limits. There is no evidence of a pericardial effusion.Peripancreatic inflammatory changes are seen which appears slightly worsened when compared to the prior examination worrisome for recurrent acute pancreatitis. No evidence of a fluid collection to suggest pseudocyst formation.The liver, spleen, adrenal glands, and kidneys are grossly unremarkable. The gallbladder is grossly unremarkable. The uterus appears atrophied. The ovaries are clearly visualized on this examination. Moderate fecal load is seen the colon.Left-sided nonobstructing nephrolithiasis is noted. No evidence of ureterolithiasis.The stomach, small bowel, and colon are grossly unremarkable. A few scattered diverticula are seen without evidence of diverticulitis. There are no inflammatory changes in the right lower quadrant to suggest secondary signs of acute appendicitis. Partial visualization of the appendix is normal. The appendix is not seen in its entirety on this examination.There is no evidence of retroperitoneal or mesenteric lymphadenopathy.The visualized bones demonstrate degenerative changes. There are no concerning lytic or blastic lesions identified.IMPRESSION:Overall findings are worrisome for a recurrent acute without evidence of pseudocyst formation.Electronically signed by: Kalyan Mckee (Oct 17, 2021 03:16:46)
[2021-10-17] MEDS ORDERED: DEMEROL INJ IVP PRN (03:34)
[2021-10-17 03:41] LABS: BILIRUBIN,URINE NEGATIVE (NEGATIVE); BLOOD/HEMOGLOBIN,URINE 2+ (NEGATIVE); GLUCOSE, URINE NEGATIVE (NEGATIVE); KETONES,URINE NEGATIVE (NEGATIVE); LEUKOCYTE ESTERASE ,URINE NEGATIVE (NEGATIVE); NITRITES,URINE NEGATIVE (NEGATIVE); PROTEIN,URINE NEGATIVE (NEGATIVE); UROBILINOGEN,URINE NORMAL (NORMAL)
[2021-10-17 03:49] LABS: APPEARANCE,URINE CLEAR (CLEAR); BACTERIA,URINE NEGATIVE /HPF (NEGATIVE); COLOR,URINE PALE YELLOW (YELLOW); RBC,URINE 0-2 /HPF (0-3); SQUAMOUS EPITHELIAL CELL,UR RARE /HPF (NEGATIVE)
[2021-10-17] MEDS ORDERED: ZOFRAN INJ 4 MG VIAL ONE (03:50)
[2021-10-17] MEDS ORDERED: NS + KCL 20 MEQ/L 1,000 ML IV ONE (03:51)
[2021-10-17] MEDS ORDERED: PROTONIX INJ 40 MG VIAL IVP ONE (04:05)
[2021-10-17] MEDS: NS + KCL 20 MEQ/L 1,000 ML IV SCH ×2 (04:09→11:16)
[2021-10-17] MEDS: ZOFRAN INJ 4 MG VIAL IVP PRN ×4 (04:13→20:33)
[2021-10-17] MEDS ORDERED: PROTONIX INJ 40 MG VIAL ONE (04:15)
[2021-10-17 06:26] LABS: BASOPHILS % (AUTO) 0.6 % (0.2-1.0); EOSINOPHILS # (AUTO) 0.1 x10^3/uL (0.0-0.2); EOSINOPHILS % (AUTO) 2.1 % (0.9-2.9); HEMATOCRIT 34.7 % (36.0-47.0); HEMOGLOBIN 12.1 g/dL (12.0-16.0); LYMPHOCYTES % (AUTO) 22.1 % (21.0-51.0); MEAN CORPUSCULAR HEMOGLOBIN 35.1 pg (27.0-34.0); MEAN CORPUSCULAR HGB CONC 34.9 g/dL (33.0-35.0); MEAN CORPUSCULAR VOLUME 100.6 fL (80.0-100.0); MEAN PLATELET VOLUME 8.5 fL (7.4-11.0); MONOCYTES # (AUTO) 0.3 x10^3/uL (0.3-0.8); MONOCYTES % (AUTO) 6.4 % (0.0-13.0); NEUTROPHILS # (AUTO) 3.1 x10^3/uL (2.2-4.8); NEUTROPHILS % (AUTO) 68.8 % (42.0-75.0); RED BLOOD COUNT 3.45 X10^6/uL (3.5-5.4); RED CELL DISTRIBUTION WIDTH 13.8 % (11.6-16.5); WHITE BLOOD COUNT 4.5 X10^3/uL (3.6-10.0)
[2021-10-17 06:43] LABS: ALANINE AMINOTRANSFERASE 24 Units/L (12-78); ALBUMIN 3.3 g/dL (3.4-5.0); ALKALINE PHOSPHATASE 69 Units/L (46-116); AMYLASE 210 Units/L (25-115); ASPARTATE AMINO TRANSFERASE 27 Units/L (15-37); BLOOD UREA NITROGEN 11 mg/dL (7-18); CALCIUM 8.5 mg/dL (8.5-10.1); CARBON DIOXIDE 25.8 mmol/L (21-32); CHLORIDE 103 mmol/L (98-107); COR CA(FOR HYPOALB) 9.1 mg/dL (8.5-10.1); CREATININE 0.64 mg/dL (0.55-1.02); MAGNESIUM 1.8 mg/dL (1.7-2.9); SODIUM 138 mmol/L (136-145); TOTAL PROTEIN 6.4 g/dL (6.4-8.2); eGFR NON BLACK RACES > 60 (>60)
[2021-10-17 06:44] LABS: LIPASE 1368 Units/L (73-393)
[2021-10-17] MEDS: PROTONIX INJ 40 MG VIAL IVP SCH ×2 (09:32→20:33)
[2021-10-17] MEDS: DILAUDID INJ IVP PRN ×5 (09:32→23:30)
--- NOTE | 2021-10-17 11:57 | DR.CONSULT ---
Consult - Consultation for Day of: Date: 10/17/21 (Dr. Desai) - Chief Complaint Chief Complaint: Pt is a 41 y/o who is referred for acute on chronic pancreatitis. Pt has complaints of generalized abdominal pain and N/V. Pt also reports having diarrhea last week, but this has resolved. Pt denies dysphagia, dyspepsia, constipation, diarrhea, melena, and hematochezia. Pt currently not taking any H2 blockers or PPIs. No previous colon reported. Last EGD 09/23/20- severe esophagitis with stricutre (dilated), gastritis. Pt reports using NSAIDs daily. Pt reports using alcohol (1-2 beers) 1-2x/month Abd/pelvis CT showed overall findings are worrisome for a recurrent acute without evidence of pseudocyst formation. Hgb 12.1, Hct 34.7, Plt 160, Bun 11, Creat 0.64, T.bili 0.40. AST 27, ALT 24, ALP 69, Amylase 210, Lipase 1368. Pt presented to ED with C/O diffuse abdominal and back pain x1 week. PT states "It feels like I got pancreatitis again". PT C/O nausea and pain that worsens with food. - Past Medical History Past Medical History: Hypertension, Anxiety, PUD, GERD, Headaches - Past Surgical History Surgical History: Other - Family History Family Medical History: Cancer - Social History Type of Tobacco Use: VAPE Alcohol Use: Occasionally (1-2x/month) Drug Use: None - Medications Home Medications: No Known Drug Allergies Allergy (Verified 11/11/19 17:33) CONTINUE taking the following medications NK 10/17/21 [History] - Review of Systems Constitutional: No Symptoms Reported. denies: See HPI, Fever, Chills, Sweats, Weakness, Malaise, Other Eyes: No Symptoms Reported. denies: See HPI, Pain, Vision Change, Conjunctivae Inflammation, Eyelid Inflammation, Redness, Other ENT: No Symptoms Reported. denies: See HPI, Ear Pain, Ear Discharge, Nose Pain, Nose Discharge, Nose Congestion, Mouth Pain, Mouth Swelling, Throat Pain, Throat Swelling, Other Respiratory: No Symptoms Reported. denies: See HPI, Cough, Dry, Shortness of Breath, Hemoptysis, SOB with Excertion, Pleuritic Pain, Sputum, Wheezing, Other Cardiovascular: No Symptoms Reported. denies: Chest Pain, See HPI, Palpitations, Orthopnea, Paroxysmal Noc. Dyspnea, Edema, Light Headedness, Other Gastrointestinal: See HPI, Nausea, Vomiting, Abdominal Pain (Generalized). denies: No Symptoms Reported, Diarrhea, Constipation, Melena, Hematochezia, Other Genitourinary: No Symptoms Reported. denies: See HPI, Dysuria, Frequency, Incontinence, Hematuria, Retention, Other Musculoskeletal: No Symptoms Reported. denies: See HPI, Shoulder Pain, Arm Pain, Back Pain, Hand Pain, Leg Pain, Foot Pain, Neck Pain, Other Skin: No Symptoms Reported. denies: See HPI, Rash, Lesions, Jaundice, Bruising, Wound, Ecchymosis, Other Neurological: No Symptoms Reported. denies: See HPI, Weakness, Numbness, Incoordination, Change in Speech, Confusion, Seizures, Other - Physical Exam Vital Signs: Temperature 97.6 F Pulse Rate [Right Brachial] 71 Pulse Rate 73 Respiratory Rate 18 Blood Pressure [Right Arm] 133/65 Blood Pressure [Left Arm] 154/95 Blood Pressure 155/105 O2 Sat by Pulse Oximetry 100 Oriented: Normal Eyes: Normal Ear: Normal Nose: Normal Throat: Normal Respiratory: Clear Throughout Cardiovascular: Normal : Normal Auscultation: Bowel Sounds: Normal Tenderness: Diffuse, Severe Skin: Normal Musculoskeletal: Normal Psychiatric: Normal Mood Description: Calm Affect: Normal Speech Pattern: Clear, Appropriate - Plan Plan: Assessment. 1. Acute pancreatitis, gallbladder normal, R/O other etiology. Plan. 1. Lipid profile, keep NPO, aggressive IV hydration, gallbl adder US. Plan d/w Dr. Desai - Allergies Allergies/Adverse Reactions: Allergies Allergy/AdvReac Type Severity Reaction Status Date / Time No Known Drug Allergies Allergy Verified 11/11/19 17:33
[2021-10-17] MEDS ORDERED: K-RIDER 10 MEQ/NS 100 ML 10 MEQ/100 ML BAG IV PRN (16:29)
[2021-10-17] MEDS ORDERED: K-DUR TAB 20 MEQ PO PRN (16:29)
[2021-10-17] MEDS ORDERED: POTASSIUM CHL 60 MEQ/NS 0.45% 500 ML IV PRN (16:29)
[2021-10-17] MEDS ORDERED: POTASSIUM CHLORIDE LIQ 20 MEQ UDC PO PRN (16:29)
[2021-10-17] MEDS ORDERED: POTASSIUM CHL 40 MEQ/NS 0.45% 500 ML IV PRN (16:29)
[2021-10-17] MEDS ORDERED: KLOR-CON PO PRN (16:29)
[2021-10-17] MEDS ORDERED: MICRO K EXTEN CAP 10 MEQ PO PRN (16:29)
[2021-10-17] MEDS: MAGNESIUM SULFATE 1 GRAM/100 mL PREMIX 1 G/100 ML BAG IV PRN ×2 (16:53→18:08)
[2021-10-17 17:06] LABS: CHOL/HDL RATIO 2.9 (0.0-5.0)
--- NOTE | 2021-10-17 17:41 | DR.H&P ---
H&P History & Physical for Day of: H&P Date: 10/17/21 Chief Complaint Chief Complaint: ABDOMINAL PAIN, NAUSEA, VOMITING Allergies Allergies Allergy/AdvReac Type Severity Reaction Status Date / Time No Known Drug Allergies Allergy Verified 11/11/19 17:33 History of Present Illness History of Present Illness: IS A 41 YEAR OLD FEMALE WITH A PMH OF NEUROPATHY, GERD, HTN, PUD PRESENTED WITH COMPLAINTS OF INTRACTABLE NAUSEA, VOMITING, AND DIFFUSE ABDOMINAL PAIN X 1 WEEK. ABDOMINAL PAIN IS DESCRIBED CRAMPING AND WAS RATED A 7/10 ON ARRIVAL. SHE REPORTS THAT PAIN RADIATES TO THE BACK. PAIN AND NAUSEA WORSEN AFTER EATING. SHE HAS BEEN HOSPITALIZED TWICE WITHIN THE PAST YEAR FOR TREATMENT OF PANCREATITIS. SHE DOES ADMIT TO OCCASIONAL USE OF ALCOHOL. HER PANCREATITIS IS GENERALLY TRIGGERED BY ALCOHOL. SHE DENIES FEVER OR CHILLS. SHE HAD AN EGD ABOUT A YEAR AGO WHICH REVEALED SEVERE ESOPHAGITIS WITH STRICTURE FORMATION OF THE GE JUNCTION AND MODERATE GASTRITITIS INVOLVING THE FUNDUS AND GASTRIC FINCH. ON ARRIVAL TO THE HOSPITAL, VITALS WERE: 98.1-96-20-100%-155/105. LABS WERE OBTAINED. SHE DOES NOT CURRENTLY TAKE ANY MEDICATIONS FOR HER CHRONIC HISTORY. LABS WERE OBTAINED. WBC 4.7, HGB 12.9, HCT 36.5, PLT COUNT 172, SODIUM 136, POTASSIUM 3.1, CHLORIDE 100, BUN 12, CREATININE 0.82, GLUCOSE 107, CALCIUM 8.8, TOTAL BILI 0.50, AST 24, ALT 24, ALK PHOS 78, TOTAL PROTEIN 6.9, ALBUMIN 3.6, AMYLASE 149, LIPASE 1091. URINALYSIS WAS OBTAINED AND REVEALED: BLOOD 2+, WBC 0-2, RBC 0-2, BACTERIA NEGATIVE, LEUKOCYTES NEGATIVE. UDS NEGATIVE. COVID NEGATIVE. AN ABDOMEN/PELVIS CT WITHOUT CONTRAST WAS OBTAINED AND REVEALED: Overall findings are worrisome for a recurrent acute without evidence of pseudocyst formation. IN THE ER, SHE WAS GIVEN PROTONIX 40MG IV X 1, DEMEROL 50MG IV X 1 DOSE, AND COMPAZINE 10MG IM X 1 DOSE. SHE WAS ADMITTED TO THE HOSPITAL FOR FURTHER EVALUATION AND TREATMENT OF ABDOMINAL PAIN, ACUTE PANCREATITIS. SHE WAS STARTED ON NORMAL SALINE WITH 20MEQ AT 150ML/HR, DILAUDID 2MG IV Q3H PRN PAIN, ZOFRAN 4MG IV Q4H PRN NAUSEA, PROTONIX 40MG IV BID, AND THE PTOASSIUM AND MAGNESIUM PROTOCOLS. WE PLAN TO CONSULT WITH , SIGNAL AND COMMUNICATIONS MAINTAINER. WE WILL KEEP HER NPO TODAY. OTHERWISE, WE WILL FOLLOW-UP WITH AM LABS AND CONTINUE TO MONITOR. TIME SPENT ON CLINICAL ASSESSMENT, REVIEWING LABS AND IMAGING, DECISION MAKING, AND DOCUMENTATION GREATER THAN 75 MINUTES. Past Medical History Past Medical History: Anxiety, GERD, Headaches, Hypertension and PUD Additional Medical History: NEUROPATHY Past Surgical History Surgical History: Other Family History Family Medical History: Cancer Social History Type of Tobacco Use: VAPE Alcohol Use: Occasionally (1-2x/month) Drug Use: None Medications Home Medications: No Known Drug Allergies Allergy (Verified 11/11/19 17:33) CONTINUE taking the following medications NK 10/17/21 [History] Labs Result Diagrams: 10/17/21 05:48 10/17/21 05:48 Labs: Laboratory WBC 4.5 X10^3/uL (3.6-10.0) 10/17/21 05:48 RBC 3.45 X10^6/uL (3.5-5.4) L 10/17/21 05:48 Hgb 12.1 g/dL (12.0-16.0) 10/17/21 05:48 Hct 34.7 % (36.0-47.0) L 10/17/21 05:48 MCV 100.6 fL (80.0-100.0) H 10/17/21 05:48 MCH 35.1 pg (27.0-34.0) H 10/17/21 05:48 MCHC 34.9 g/dL (33.0-35.0) 10/17/21 05:48 RDW 13.8 % (11.6-16.5) 10/17/21 05:48 Plt Count 160 X10^3/uL (150.0-450.0) 10/17/21 05:48 MPV 8.5 fL (7.4-11.0) 10/17/21 05:48 Neut % (Auto) 68.8 % (42.0-75.0) 10/17/21 05:48 Lymph % (Auto) 22.1 % (21.0-51.0) 10/17/21 05:48 [place] % (Auto) 6.4 % (0.0-13.0) 10/17/21 05:48 Eos % (Auto) 2.1 % (0.9-2.9) 10/17/21 05:48 Baso % (Auto) 0.6 % (0.2-1.0) 10/17/21 05:48 Neut # (Auto) 3.1 x10^3/uL (2.2-4.8) 10/17/21 05:48 Lymph # (Auto) 1.0 X10^3/uL (1.3-2.9) L 10/17/21 05:48 [place] # (Auto) 0.3 x10^3/uL (0.3-0.8) 10/17/21 05:48 Eos # (Auto) 0.1 x10^3/uL (0.0-0.2) 10/17/21 05:48 Baso # (Auto) 0.0 X10^3/uL (0.0-0.1) 10/17/21 05:48 Absolute Nucleated RBC 0.1 /100WBC 10/17/21 05:48 PT 13.5 SECONDS (11.8-14.3) 10/17/21 05:48 INR Target Range - 10/17/21 05:48 INR 1.06 (0.8-1.3) 10/17/21 05:48 APTT 25.3 SECONDS (22.9-36.5) 10/17/21 05:48 PTT Comment - 10/17/21 05:48 Sodium 138 mmol/L (136-145) 10/17/21 05:48 Corrected Sodium TNP 10/17/21 05:48 Potassium 3.6 mmol/L (3.5-5.1) 10/17/21 05:48 Chloride 103 mmol/L (98-107) 10/17/21 05:48 Carbon Dioxide 25.8 mmol/L (21-32) 10/17/21 05:48 BUN 11 mg/dL (7-18) 10/17/21 05:48 Creatinine 0.64 mg/dL (0.55-1.02) 10/17/21 05:48 Est GFR (MDRD) Af Amer > 60 (>60) 10/17/21 05:48 Est GFR (MDRD) Non-Af > 60 (>60) 10/17/21 05:48 Glucose 93 mg/dL (65-99) 10/17/21 05:48 Calcium 8.5 mg/dL (8.5-10.1) 10/17/21 05:48 Corrected Calcium 9.1 mg/dL (8.5-10.1) 10/17/21 05:48 Magnesium 1.8 mg/dL (1.7-2.9) 10/17/21 05:48 Total Bilirubin 0.40 mg/dL (0.2-1.0) 10/17/21 05:48 AST 27 Units/L (15-37) 10/17/21 05:48 ALT 24 Units/L (12-78) 10/17/21 05:48 Alkaline Phosphatase 69 Units/L (46-116) 10/17/21 05:48 Total Protein 6.4 g/dL (6.4-8.2) 10/17/21 05:48 Albumin 3.3 g/dL (3.4-5.0) L 10/17/21 05:48 Globulin 3.1 g/dL (2.5-4.5) 10/17/21 05:48 Albumin/Globulin Ratio 1.1 Ratio (1.1-2.1) 10/17/21 05:48 Triglycerides 123 mg/dL (0-150) 10/17/21 16:40 Cholesterol 150 mg/dL (0-200) 10/17/21 16:40 LDL Cholesterol, Calc 73 mg/dL (0-100) 10/17/21 16:40 HDL Cholesterol 52 mg/dL (40-60) 10/17/21 16:40 Cholesterol/HDL Ratio 2.9 (0.0-5.0) 10/17/21 16:40 Amylase 210 Units/L (25-115) H 10/17/21 05:48 Lipase 1368 Units/L (73-393) H 10/17/21 05:48 Specimen Type Clean catch urine 10/17/21 03:16 Urine Color Pale yellow (YELLOW) 10/17/21 03:16 Urine Appearance Clear (CLEAR) 10/17/21 03:16 Urine pH 6.0 (5.0 - 8.0) 10/17/21 03:16 Ur Specific [place] 1.010 (1.000-1.030) 10/17/21 03:16 Urine Protein Negative (NEGATIVE) 10/17/21 03:16 Urine Glucose (UA) Negative (NEGATIVE) 10/17/21 03:16 Urine Ketones Negative (NEGATIVE) 10/17/21 03:16 Urine Blood 2+ (NEGATIVE) 10/17/21 03:16 Urine Nitrite Negative (NEGATIVE) 10/17/21 03:16 Urine Bilirubin Negative (NEGATIVE) 10/17/21 03:16 Urine Urobilinogen Normal (NORMAL) 10/17/21 03:16 Ur Leukocyte Esterase Negative (NEGATIVE) 10/17/21 03:16 Urine RBC 0-2 /HPF (0-3) 10/17/21 03:16 Urine WBC 0-2 /HPF (0-5) 10/17/21 03:16 Ur Squamous Epith Cells Rare /HPF (NEGATIVE) 10/17/21 03:16 Urine Bacteria Negative /HPF (NEGATIVE) 10/17/21 03:16 Ur Culture Indicated? No/not indicated 10/17/21 03:16 Urine Opiates Screen Negative (NEG=<300) 10/17/21 03:16 Urine Methadone Screen Negative (NEG=<300) 10/17/21 03:16 Ur Barbiturates Screen Negative (NEG=<200) 10/17/21 03:16 Ur Phencyclidine Scrn Negative (NEG=<25) 10/17/21 03:16 Ur Amphetamines Screen Negative (NEG=<1000) 10/17/21 03:16 U Benzodiazepines Scrn Negative (NEG=<200) 10/17/21 03:16 Urine Cocaine Screen Negative (NEG=<300) 10/17/21 03:16 U Marijuana (THC) Screen Negative (NEG=<50) 10/17/21 03:16 SARS-CoV-2 (PCR) Negative (NEGATIVE) 10/17/21 03:02 Review of Systems Constitutional: No Symptoms Reported; denies See HPI, Fever, Chills, Sweats, Weakness, Malaise or Other Eyes: No Symptoms Reported; denies See HPI, Pain, Vision Change, Conjunctivae Inflammation, Eyelid Inflammation, Redness or Other ENT: No Symptoms Reported; denies See HPI, Ear Pain, Ear Discharge, Nose Pain, Nose Discharge, Nose Congestion, Mouth Pain, Mouth Swelling, Throat Pain, Throat Swelling or Other Respiratory: No Symptoms Reported; denies See HPI, Cough, Dry, Shortness of Breath, Hemoptysis, SOB with Excertion, Pleuritic Pain, Sputum, Wheezing or Other Cardiovascular: No Symptoms Reported; denies Chest Pain, See HPI, Palpitations, Orthopnea, Paroxysmal Noc. Dyspnea, Edema, Light Headedness or Other Gastrointestinal: See HPI, Nausea, Vomiting and Abdominal Pain (Generalized); denies No Symptoms Reported, Diarrhea, Constipation, Melena, Hematochezia or Other Genitourinary: No Symptoms Reported; denies See HPI, Dysuria, Frequency, Incontinence, Hematuria, Retention or Other Musculoskeletal: No Symptoms Reported; denies See HPI, Shoulder Pain, Arm Pain, Back Pain, Hand Pain, Leg Pain, Foot Pain, Neck Pain or Other Skin: No Symptoms Reported; denies See HPI, Rash, Lesions, Jaundice, Bruising, Wound, Ecchymosis or Other Neurological: No Symptoms Reported; denies See HPI, Weakness, Numbness, Incoordination, Change in Speech, Confusion, Seizures or Other Physical Exam Vital Signs: Temperature 97.8 F Pulse Rate [Right Brachial] 86 Pulse Rate 73 Respiratory Rate 20 Blood Pressure [Right Arm] 152/86 Blood Pressure [Left Arm] 154/95 Blood Pressure 155/105 O2 Sat by Pulse Oximetry 100 Oriented: Normal Eyes: Normal Nose: Normal Throat: Normal Respiratory: Clear Throughout Cardiovascular: Normal : Normal Palpation: Normal Tenderness: Diffuse and Mild Skin: Normal Musculoskeletal: Normal Psychiatric: Normal Mood Description: Calm Affect: Normal Speech Pattern: Clear Assessment/Plan (1) Acute pancreatitis: Status: Acute Plan: ADMIT, NPO, IV HYDRATION WITH POTASSIUM REPLACEMENT, PAIN CONTROL, NAUSEA CONTROL, CONSULT GI, MONITOR LABS (2) Nausea & vomiting: Qualifiers: Vomiting Intractability: non-intractable Vomiting type: unspecified Qualified Code(s): R11.2 - Nausea with vomiting, unspecified Status: Acute (3) Abdominal pain: Status: Acute
--- NOTE | 2021-10-17 18:46 | US ---
HISTORYPANCREATITIS. Abdominal pain.Study: Right upper quadrant abdominal ultrasoundComparison: No recent priors.Technique: Multiple casillas scale and color flow Doppler images of the right upper quadrant were obtained.Findings:The liver [is normal in echotexture and size]. No focal intraparenchymal mass or intrahepatic biliary ductal dilatation can be observed. [The gallbladder fails to demonstrate evidence for cholelithiasis or layering sludge]. The common bile duct is unremarkable measuring 5 mm. [No pericholecystic fluid or gallbladder wall thickening can be observed]. The CBD measures [within normal limits]. The right kidney appears normal in size without focal parenchymal mass or nephrolithiasis. The right kidney measurers 10 x 5 cm. No hydronephrosis or perirenal fluid can be observed. The pancreas is largely obscured by overlying bowel gas. No ascites or focal fluid collection is identified.IMPRESSION:1. Unremarkable examination of the right upper quadrant, although the pancreas is not well evaluated.Electronically signed by: DINORAH GARIBAY III (Oct 17, 2021 18:45:11)
[2021-10-18] MEDS: ZOFRAN INJ 4 MG VIAL IVP PRN ×5 (00:30→21:42)
[2021-10-18] MEDS: DILAUDID INJ IVP PRN ×8 (02:44→21:42)
[2021-10-18] MEDS: NS + KCL 20 MEQ/L 1,000 ML IV SCH ×2 (04:09→18:34)
[2021-10-18 05:00] LABS: BASOPHILS % (AUTO) 0.2 % (0.2-1.0); EOSINOPHILS # (AUTO) 0.1 x10^3/uL (0.0-0.2); EOSINOPHILS % (AUTO) 2.6 % (0.9-2.9); HEMOGLOBIN 12.2 g/dL (12.0-16.0); LYMPHOCYTES % (AUTO) 17.8 % (21.0-51.0); MEAN CORPUSCULAR HEMOGLOBIN 35.3 pg (27.0-34.0); MEAN CORPUSCULAR HGB CONC 34.9 g/dL (33.0-35.0); MEAN CORPUSCULAR VOLUME 101.2 fL (80.0-100.0); MEAN PLATELET VOLUME 8.4 fL (7.4-11.0); MONOCYTES # (AUTO) 0.5 x10^3/uL (0.3-0.8); MONOCYTES % (AUTO) 9.1 % (0.0-13.0); NEUTROPHILS # (AUTO) 3.9 x10^3/uL (2.2-4.8); NEUTROPHILS % (AUTO) 70.3 % (42.0-75.0); RED BLOOD COUNT 3.46 X10^6/uL (3.5-5.4); RED CELL DISTRIBUTION WIDTH 13.8 % (11.6-16.5); WHITE BLOOD COUNT 5.5 X10^3/uL (3.6-10.0)
[2021-10-18 05:13] LABS: ALANINE AMINOTRANSFERASE 25 Units/L (12-78); ALBUMIN 3.4 g/dL (3.4-5.0); ALKALINE PHOSPHATASE 80 Units/L (46-116); AMYLASE 167 Units/L (25-115); ASPARTATE AMINO TRANSFERASE 32 Units/L (15-37); BLOOD UREA NITROGEN 7 mg/dL (7-18); CALCIUM 8.4 mg/dL (8.5-10.1); CARBON DIOXIDE 21.6 mmol/L (21-32); CHLORIDE 102 mmol/L (98-107); CREATININE 0.62 mg/dL (0.55-1.02); LIPASE 759 Units/L (73-393); SODIUM 136 mmol/L (136-145); TOTAL PROTEIN 6.8 g/dL (6.4-8.2); eGFR NON BLACK RACES > 60 (>60)
[2021-10-18] MEDS: PROTONIX INJ 40 MG VIAL IVP SCH ×2 (09:50→20:47)
[2021-10-18] MEDS: MAGNESIUM SULFATE 1 GRAM/100 mL PREMIX 1 G/100 ML BAG IV PRN ×2 (09:51→12:28)
[2021-10-18 10:45] VITALS: BMI 21.6
[2021-10-18] MEDS ORDERED: COLACE CAP 100 MG PO ONE (19:13)
[2021-10-18] MEDS: COLACE CAP 100 MG PO SCH (20:46)
[2021-10-19] MEDS: DILAUDID INJ IVP PRN ×8 (00:01→23:54)
[2021-10-19] MEDS: NS + KCL 20 MEQ/L 1,000 ML IV SCH ×3 (00:01→17:14)
[2021-10-19] MEDS: ZOFRAN INJ 4 MG VIAL IVP PRN ×6 (02:19→23:55)
[2021-10-19 06:25] LABS: BASOPHILS % (AUTO) 0.1 % (0.2-1.0); EOSINOPHILS # (AUTO) 0.1 x10^3/uL (0.0-0.2); EOSINOPHILS % (AUTO) 1.4 % (0.9-2.9); HEMATOCRIT 31.8 % (36.0-47.0); HEMOGLOBIN 11.2 g/dL (12.0-16.0); LYMPHOCYTES # (AUTO) 0.7 X10^3/uL (1.3-2.9); LYMPHOCYTES % (AUTO) 13.2 % (21.0-51.0); MEAN CORPUSCULAR HEMOGLOBIN 35.9 pg (27.0-34.0); MEAN CORPUSCULAR HGB CONC 35.4 g/dL (33.0-35.0); MEAN CORPUSCULAR VOLUME 101.5 fL (80.0-100.0); MEAN PLATELET VOLUME 8.8 fL (7.4-11.0); MONOCYTES # (AUTO) 0.7 x10^3/uL (0.3-0.8); NEUTROPHILS % (AUTO) 72.3 % (42.0-75.0); RED BLOOD COUNT 3.13 X10^6/uL (3.5-5.4); RED CELL DISTRIBUTION WIDTH 13.4 % (11.6-16.5); WHITE BLOOD COUNT 5.5 X10^3/uL (3.6-10.0)
[2021-10-19 06:37] LABS: ALANINE AMINOTRANSFERASE 19 Units/L (12-78); ALBUMIN 2.8 g/dL (3.4-5.0); ALKALINE PHOSPHATASE 80 Units/L (46-116); AMYLASE 109 Units/L (25-115); ASPARTATE AMINO TRANSFERASE 22 Units/L (15-37); BLOOD UREA NITROGEN 2 mg/dL (7-18); CALCIUM 8.2 mg/dL (8.5-10.1); CARBON DIOXIDE 17.6 mmol/L (21-32); CHLORIDE 100 mmol/L (98-107); COR CA(FOR HYPOALB) 9.2 mg/dL (8.5-10.1); CREATININE 0.57 mg/dL (0.55-1.02); LIPASE 400 Units/L (73-393); SODIUM 133 mmol/L (136-145); TOTAL PROTEIN 6.1 g/dL (6.4-8.2); eGFR NON BLACK RACES > 60 (>60)
[2021-10-19] MEDS: PROTONIX INJ 40 MG VIAL IVP SCH ×2 (09:04→20:03)
[2021-10-19] MEDS: MAGNESIUM SULFATE 1 GRAM/100 mL PREMIX 1 G/100 ML BAG IV PRN ×2 (09:04→11:22)
--- NOTE | 2021-10-19 20:01 | DR.H&P ---
H&P Allergies Allergies Allergy/AdvReac Type Severity Reaction Status Date / Time No Known Drug Allergies Allergy Verified 11/11/19 17:33 Past Medical History Past Medical History: Anxiety, GERD, Headaches, Hypertension and PUD Additional Medical History: NEUROPATHY Past Surgical History Surgical History: Other Family History Family Medical History: Cancer Social History Type of Tobacco Use: VAPE Alcohol Use: Occasionally (1-2x/month) Drug Use: None Medications Home Medications: No Known Drug Allergies Allergy (Verified 11/11/19 17:33) CONTINUE taking the following medications NK 10/17/21 [History] Labs Result Diagrams: 10/19/21 05:08 10/19/21 05:08 Labs: Laboratory WBC 4.5 X10^3/uL (3.6-10.0) 10/17/21 05:48 RBC 3.45 X10^6/uL (3.5-5.4) L 10/17/21 05:48 Hgb 12.1 g/dL (12.0-16.0) 10/17/21 05:48 Hct 34.7 % (36.0-47.0) L 10/17/21 05:48 MCV 100.6 fL (80.0-100.0) H 10/17/21 05:48 MCH 35.1 pg (27.0-34.0) H 10/17/21 05:48 MCHC 34.9 g/dL (33.0-35.0) 10/17/21 05:48 RDW 13.8 % (11.6-16.5) 10/17/21 05:48 Plt Count 160 X10^3/uL (150.0-450.0) 10/17/21 05:48 MPV 8.5 fL (7.4-11.0) 10/17/21 05:48 Neut % (Auto) 68.8 % (42.0-75.0) 10/17/21 05:48 Lymph % (Auto) 22.1 % (21.0-51.0) 10/17/21 05:48 [place] % (Auto) 6.4 % (0.0-13.0) 10/17/21 05:48 Eos % (Auto) 2.1 % (0.9-2.9) 10/17/21 05:48 Baso % (Auto) 0.6 % (0.2-1.0) 10/17/21 05:48 Neut # (Auto) 3.1 x10^3/uL (2.2-4.8) 10/17/21 05:48 Lymph # (Auto) 1.0 X10^3/uL (1.3-2.9) L 10/17/21 05:48 [place] # (Auto) 0.3 x10^3/uL (0.3-0.8) 10/17/21 05:48 Eos # (Auto) 0.1 x10^3/uL (0.0-0.2) 10/17/21 05:48 Baso # (Auto) 0.0 X10^3/uL (0.0-0.1) 10/17/21 05:48 Absolute Nucleated RBC 0.1 /100WBC 10/17/21 05:48 PT 13.5 SECONDS (11.8-14.3) 10/17/21 05:48 INR Target Range - 10/17/21 05:48 INR 1.06 (0.8-1.3) 10/17/21 05:48 APTT 25.3 SECONDS (22.9-36.5) 10/17/21 05:48 PTT Comment - 10/17/21 05:48 Sodium 138 mmol/L (136-145) 10/17/21 05:48 Corrected Sodium TNP 10/17/21 05:48 Potassium 3.6 mmol/L (3.5-5.1) 10/17/21 05:48 Chloride 103 mmol/L (98-107) 10/17/21 05:48 Carbon Dioxide 25.8 mmol/L (21-32) 10/17/21 05:48 BUN 11 mg/dL (7-18) 10/17/21 05:48 Creatinine 0.64 mg/dL (0.55-1.02) 10/17/21 05:48 Est GFR (MDRD) Af Amer > 60 (>60) 10/17/21 05:48 Est GFR (MDRD) Non-Af > 60 (>60) 10/17/21 05:48 Glucose 93 mg/dL (65-99) 10/17/21 05:48 Calcium 8.5 mg/dL (8.5-10.1) 10/17/21 05:48 Corrected Calcium 9.1 mg/dL (8.5-10.1) 10/17/21 05:48 Magnesium 1.8 mg/dL (1.7-2.9) 10/17/21 05:48 Total Bilirubin 0.40 mg/dL (0.2-1.0) 10/17/21 05:48 AST 27 Units/L (15-37) 10/17/21 05:48 ALT 24 Units/L (12-78) 10/17/21 05:48 Alkaline Phosphatase 69 Units/L (46-116) 10/17/21 05:48 Total Protein 6.4 g/dL (6.4-8.2) 10/17/21 05:48 Albumin 3.3 g/dL (3.4-5.0) L 10/17/21 05:48 Globulin 3.1 g/dL (2.5-4.5) 10/17/21 05:48 Albumin/Globulin Ratio 1.1 Ratio (1.1-2.1) 10/17/21 05:48 Triglycerides 123 mg/dL (0-150) 10/17/21 16:40 Cholesterol 150 mg/dL (0-200) 10/17/21 16:40 LDL Cholesterol, Calc 73 mg/dL (0-100) 10/17/21 16:40 HDL Cholesterol 52 mg/dL (40-60) 10/17/21 16:40 Cholesterol/HDL Ratio 2.9 (0.0-5.0) 10/17/21 16:40 Amylase 210 Units/L (25-115) H 10/17/21 05:48 Lipase 1368 Units/L (73-393) H 10/17/21 05:48 Specimen Type Clean catch urine 10/17/21 03:16 Urine Color Pale yellow (YELLOW) 10/17/21 03:16 Urine Appearance Clear (CLEAR) 10/17/21 03:16 Urine pH 6.0 (5.0 - 8.0) 10/17/21 03:16 Ur Specific [place] 1.010 (1.000-1.030) 10/17/21 03:16 Urine Protein Negative (NEGATIVE) 10/17/21 03:16 Urine Glucose (UA) Negative (NEGATIVE) 10/17/21 03:16 Urine Ketones Negative (NEGATIVE) 10/17/21 03:16 Urine Blood 2+ (NEGATIVE) 10/17/21 03:16 Urine Nitrite Negative (NEGATIVE) 10/17/21 03:16 Urine Bilirubin Negative (NEGATIVE) 10/17/21 03:16 Urine Urobilinogen Normal (NORMAL) 10/17/21 03:16 Ur Leukocyte Esterase Negative (NEGATIVE) 10/17/21 03:16 Urine RBC 0-2 /HPF (0-3) 10/17/21 03:16 Urine WBC 0-2 /HPF (0-5) 10/17/21 03:16 Ur Squamous Epith Cells Rare /HPF (NEGATIVE) 10/17/21 03:16 Urine Bacteria Negative /HPF (NEGATIVE) 10/17/21 03:16 Ur Culture Indicated? No/not indicated 10/17/21 03:16 Urine Opiates Screen Negative (NEG=<300) 10/17/21 03:16 Urine Methadone Screen Negative (NEG=<300) 10/17/21 03:16 Ur Barbiturates Screen Negative (NEG=<200) 10/17/21 03:16 Ur Phencyclidine Scrn Negative (NEG=<25) 10/17/21 03:16 Ur Amphetamines Screen Negative (NEG=<1000) 10/17/21 03:16 U Benzodiazepines Scrn Negative (NEG=<200) 10/17/21 03:16 Urine Cocaine Screen Negative (NEG=<300) 10/17/21 03:16 U Marijuana (THC) Screen Negative (NEG=<50) 10/17/21 03:16 SARS-CoV-2 (PCR) Negative (NEGATIVE) 10/17/21 03:02 Review of Systems Constitutional: No Symptoms Reported; denies See HPI, Fever, Chills, Sweats, Weakness, Malaise or Other Eyes: No Symptoms Reported; denies See HPI, Pain, Vision Change, Conjunctivae Inflammation, Eyelid Inflammation, Redness or Other ENT: No Symptoms Reported; denies See HPI, Ear Pain, Ear Discharge, Nose Pain, Nose Discharge, Nose Congestion, Mouth Pain, Mouth Swelling, Throat Pain, Throat Swelling or Other Respiratory: No Symptoms Reported; denies See HPI, Cough, Dry, Shortness of Breath, Hemoptysis, SOB with Excertion, Pleuritic Pain, Sputum, Wheezing or Othe r Cardiovascular: No Symptoms Reported; denies Chest Pain, See HPI, Palpitations, Orthopnea, Paroxysmal Noc. Dyspnea, Edema, Light Headedness or Other Gastrointestinal: See HPI, Nausea, Vomiting and Abdominal Pain (Generalized); denies No Symptoms Reported, Diarrhea, Constipation, Melena, Hematochezia or Other Genitourinary: No Symptoms Reported; denies See HPI, Dysuria, Frequency, Incontinence, Hematuria, Retention or Other Musculoskeletal: No Symptoms Reported; denies See HPI, Shoulder Pain, Arm Pain, Back Pain, Hand Pain, Leg Pain, Foot Pain, Neck Pain or Other Skin: No Symptoms Reported; denies See HPI, Rash, Lesions, Jaundice, Bruising, Wound, Ecchymosis or Other Neurological: No Symptoms Reported; denies See HPI, Weakness, Numbness, Incoord ination, Change in Speech, Confusion, Seizures or Other Physical Exam Vital Signs: Temperature 97.8 F Pulse Rate [Right Brachial] 86 Pulse Rate 73 Respiratory Rate 20 Blood Pressure [Right Arm] 152/86 Blood Pressure [Left Arm] 154/95 Blood Pressure 155/105 O2 Sat by Pulse Oximetry 100 Oriented: Normal Assessment/Plan (1) Acute pancreatitis: Status: Acute (2) Nausea & vomiting: Qualifiers: Vomiting Intractability: non-intractable Vomiting type: unspecified Qualified Code(s): R11.2 - Nausea with vomiting, unspecified Status: Acute (3) Abdominal pain: Status: Acute
[2021-10-19] MEDS: COLACE CAP 100 MG PO SCH (20:04)
[2021-10-20] MEDS: NS + KCL 20 MEQ/L 1,000 ML IV SCH ×3 (01:23→15:26)
[2021-10-20] MEDS: DILAUDID INJ IVP PRN ×5 (04:25→21:30)
[2021-10-20] MEDS: ZOFRAN INJ 4 MG VIAL IVP PRN ×5 (04:25→21:50)
[2021-10-20 06:03] LABS: BASOPHILS % (AUTO) 0.2 % (0.2-1.0); EOSINOPHILS # (AUTO) 0.1 x10^3/uL (0.0-0.2); HEMATOCRIT 33.9 % (36.0-47.0); HEMOGLOBIN 11.9 g/dL (12.0-16.0); LYMPHOCYTES # (AUTO) 0.7 X10^3/uL (1.3-2.9); LYMPHOCYTES % (AUTO) 11.2 % (21.0-51.0); MEAN CORPUSCULAR HGB CONC 35.1 g/dL (33.0-35.0); MEAN CORPUSCULAR VOLUME 99.6 fL (80.0-100.0); MEAN PLATELET VOLUME 9.3 fL (7.4-11.0); MONOCYTES # (AUTO) 0.9 x10^3/uL (0.3-0.8); MONOCYTES % (AUTO) 14.9 % (0.0-13.0); NEUTROPHILS # (AUTO) 4.3 x10^3/uL (2.2-4.8); NEUTROPHILS % (AUTO) 71.7 % (42.0-75.0); RED BLOOD COUNT 3.41 X10^6/uL (3.5-5.4); RED CELL DISTRIBUTION WIDTH 13.5 % (11.6-16.5)
[2021-10-20 06:08] LABS: ALANINE AMINOTRANSFERASE 18 Units/L (12-78); ALBUMIN 2.9 g/dL (3.4-5.0); ALKALINE PHOSPHATASE 95 Units/L (46-116); ASPARTATE AMINO TRANSFERASE 16 Units/L (15-37); BLOOD UREA NITROGEN 1 mg/dL (7-18); CALCIUM 8.9 mg/dL (8.5-10.1); CARBON DIOXIDE 19.4 mmol/L (21-32); CHLORIDE 98 mmol/L (98-107); COR CA(FOR HYPOALB) 9.8 mg/dL (8.5-10.1); CREATININE 0.55 mg/dL (0.55-1.02); MAGNESIUM 1.7 mg/dL (1.7-2.9); SODIUM 131 mmol/L (136-145); eGFR NON BLACK RACES > 60 (>60)
[2021-10-20] MEDS: PROTONIX INJ 40 MG VIAL IVP SCH ×2 (08:39→21:30)
[2021-10-20 09:03] LABS: BILIRUBIN,URINE NEGATIVE (NEGATIVE); BLOOD/HEMOGLOBIN,URINE NEGATIVE (NEGATIVE); GLUCOSE, URINE NEGATIVE (NEGATIVE); KETONES,URINE 4+ (NEGATIVE); LEUKOCYTE ESTERASE ,URINE NEGATIVE (NEGATIVE); NITRITES,URINE NEGATIVE (NEGATIVE); PROTEIN,URINE NEGATIVE (NEGATIVE); UROBILINOGEN,URINE NORMAL (NORMAL)
[2021-10-20 09:05] LABS: APPEARANCE,URINE CLEAR (CLEAR); COLOR,URINE PALE YELLOW (YELLOW)
--- NOTE | 2021-10-20 09:23 | CT ---
HISTORYINCREASED ABDOMINAL PAINSTUDYABDOMEN/PELVIS W/O CONCOMPARISONCT abdomen and pelvis from 10/17/2021.TECHNIQUEMultiple axial images of the abdomen and pelvis were obtained from the lung bases to the pubic symphysis without the administration of IV contrast. Dose reduction techniques including Automated Exposure Control (AEC) and adjustment of mA and kV were utilized.FINDINGSLack of contrast limits evaluation.Lung bases demonstrate minimal scattered subsegmental atelectasis. The heart is normal in size. The liver, gallbladder, common duct, spleen, and adrenal glands have a benign noncontrast appearance. There is moderate fat stranding about the pancreas which is worse than recent prior. No discernible fluid collection although evaluation is limited without contrast. Punctate right midpole calculus. 2 mm left lower pole renal calculus. No hydronephrosis. The urinary bladder appears benign. Mild free fluid in the pelvis. The uterus is present. No large abnormal pelvic mass. The appendix is not well visualized but there is no significant inflammatory change in its expected location. Negative for bowel obstruction. Mildly atherosclerotic normal caliber abdominal aorta. No free air no pathologic adenopathy. No acute osseous abnormality.IMPRESSIONWorsened peripancreatic fat stranding consistent with worsening of pancreatitis. No discernible fluid collection. Evaluation limited without contrast. Worsened free fluid in the pelvis.Tiny bilateral nephrolithiasis.Electronically signed by: Zeb Bui (Oct 20, 2021 09:21:46)
[2021-10-20] MEDS: TORADOL 30 MG VIAL IVP PRN ×3 (13:39→23:38)
--- NOTE | 2021-10-20 20:43 | PCM.PROG ---
Progress Note Progress Note for Day of Date of Exam: 10/18/21 Subjective Subjective: The following morning the patient was still hurting in the epigastrium. However her lipase and amylase have started trending down. We will continue her on IV fluids and pain control with IV Dilaudid. We have also been keeping her n.p.o. we will continue to do so until her pain and enzyme levels returned to normal. She reported that the every 3 hours Dilaudid is not lasting her and is wearing off about 2 hours after receiving it. Gastroenterology was consulted and they saw the patient and recommended to continue IV fluid pain control and n.p.o. Past Medical Family Social History Allergies: Allergies No Known Drug Allergies Allergy (Verified 11/11/19 17:33) Vital Signs and I&O's Vital Signs: Temperature 97.6 F Pulse Rate [Right Brachial] 85 Pulse Rate 73 Respiratory Rate 18 Blood Pressure [Right Arm] 155/91 Blood Pressure [Left Arm] 154/95 Blood Pressure 155/105 O2 Sat by Pulse Oximetry 100 Intake and Output: Intake & Output 10/18/21 10/19/21 10/20/21 10/21/21 11:59 11:59 11:59 11:59 Intake Total 3436 / 3436 3788 / 3788 3770 / 3770 1888 / 1888 Balance 3436 / 3436 3788 / 3788 3770 / 3770 188 / 1888 Physical Exam Oriented: Normal Eyes: Normal Ear: Normal Nose: Normal Throat: Normal Cardiovascular: Normal : Normal Auscultation: Bowel Sounds: Normal Palpation: Normal Tenderness: Diffuse, Epigastric and Mild Skin: Normal Musculoskeletal: Normal Psychiatric: Normal Mood Description: Calm Affect: Normal Speech Pattern: Clear and Appropriate Laboratory and Diagnostics Result Diagrams: 10/20/21 04:38 10/20/21 04:38 Labs: Laboratory WBC 6.0 X10^3/uL (3.6-10.0) 10/20/21 04:38 RBC 3.41 X10^6/uL (3.5-5.4) L 10/20/21 04:38 Hgb 11.9 g/dL (12.0-16.0) L 10/20/21 04:38 Hct 33.9 % (36.0-47.0) L 10/20/21 04:38 MCV 99.6 fL (80.0-100.0) 10/20/21 04:38 MCH 35.0 pg (27.0-34.0) H 10/20/21 04:38 MCHC 35.1 g/dL (33.0-35.0) H 10/20/21 04:38 RDW 13.5 % (11.6-16.5) 10/20/21 04:38 Plt Count 156 X10^3/uL (150.0-450.0) 10/20/21 04:38 MPV 9.3 fL (7.4-11.0) 10/20/21 04:38 Neut % (Auto) 71.7 % (42.0-75.0) 10/20/21 04:38 Lymph % (Auto) 11.2 % (21.0-51.0) L 10/20/21 04:38 [place] % (Auto) 14.9 % (0.0-13.0) H 10/20/21 04:38 Eos % (Auto) 2.0 % (0.9-2.9) 10/20/21 04:38 Baso % (Auto) 0.2 % (0.2-1.0) 10/20/21 04:38 Neut # (Auto) 4.3 x10^3/uL (2.2-4.8) 10/20/21 04:38 Lymph # (Auto) 0.7 X10^3/uL (1.3-2.9) L 10/20/21 04:38 [place] # (Auto) 0.9 x10^3/uL (0.3-0.8) H 10/20/21 04:38 Eos # (Auto) 0.1 x10^3/uL (0.0-0.2) 10/20/21 04:38 Baso # (Auto) 0.0 X10^3/uL (0.0-0.1) 10/20/21 04:38 Absolute Nucleated RBC 0.1 /100WBC 10/20/21 04:38 PT 13.5 SECONDS (11.8-14.3) 10/17/21 05:48 INR Target Range - 10/17/21 05:48 INR 1.06 (0.8-1.3) 10/17/21 05:48 APTT 25.3 SECONDS (22.9-36.5) 10/17/21 05:48 PTT Comment - 10/17/21 05:48 Sodium 131 mmol/L (136-145) L 10/20/21 04:38 Corrected Sodium TNP 10/20/21 04:38 Potassium 3.7 mmol/L (3.5-5.1) 10/20/21 04:38 Chloride 98 mmol/L (98-107) 10/20/21 04:38 Carbon Dioxide 19.4 mmol/L (21-32) L 10/20/21 04:38 BUN 1 mg/dL (7-18) L 10/20/21 04:38 Creatinine 0.55 mg/dL (0.55-1.02) 10/20/21 04:38 Est GFR (MDRD) Af Amer > 60 (>60) 10/20/21 04:38 Est GFR (MDRD) Non-Af > 60 (>60) 10/20/21 04:38 Glucose 92 mg/dL (65-99) 10/20/21 04:38 Calcium 8.9 mg/dL (8.5-10.1) 10/20/21 04:38 Corrected Calcium 9.8 mg/dL (8.5-10.1) 10/20/21 04:38 Magnesium 1.7 mg/dL (1.7-2.9) 10/20/21 04:38 Total Bilirubin 0.80 mg/dL (0.2-1.0) 10/20/21 04:38 AST 16 Units/L (15-37) 10/20/21 04:38 ALT 18 Units/L (12-78) 10/20/21 04:38 Alkaline Phosphatase 95 Units/L (46-116) 10/20/21 04:38 Total Protein 7.0 g/dL (6.4-8.2) 10/20/21 04:38 Albumin 2.9 g/dL (3.4-5.0) L 10/20/21 04:38 Globulin 4.1 g/dL (2.5-4.5) 10/20/21 04:38 Albumin/Globulin Ratio 0.7 Ratio (1.1-2.1) L 10/20/21 04:38 Triglycerides 123 mg/dL (0-150) 10/17/21 16:40 Cholesterol 150 mg/dL (0-200) 10/17/21 16:40 LDL Cholesterol, Calc 73 mg/dL (0-100) 10/17/21 16:40 HDL Cholesterol 52 mg/dL (40-60) 10/17/21 16:40 Cholesterol/HDL Ratio 2.9 (0.0-5.0) 10/17/21 16:40 Amylase 109 Units/L (25-115) 10/19/21 05:08 Lipase 215 Units/L (73-393) 10/20/21 04:38 Specimen Type Clean catch urine 10/20/21 08:40 Urine Color Pale yellow (YELLOW) 10/20/21 08:40 Urine Appearance Clear (CLEAR) 10/20/21 08:40 Urine pH 7.0 (5.0 - 8.0) 10/20/21 08:40 Ur Specific [place] 1.005 (1.000-1.030) 10/20/21 08:40 Urine Protein Negative (NEGATIVE) 10/20/21 08:40 Urine Glucose (UA) Negative (NEGATIVE) 10/20/21 08:40 Urine Ketones 4+ (NEGATIVE) 10/20/21 08:40 Urine Blood Negative (NEGATIVE) 10/20/21 08:40 Urine Nitrite Negative (NEGATIVE) 10/20/21 08:40 Urine Bilirubin Negative (NEGATIVE) 10/20/21 08:40 Urine Urobilinogen Normal (NORMAL) 10/20/21 08:40 Ur Leukocyte Esterase Negative (NEGATIVE) 10/20/21 08:40 Urine RBC 0-2 /HPF (0-3) 10/17/21 03:16 Urine WBC 0-2 /HPF (0-5) 10/17/21 03:16 Ur Squamous Epith Cells Rare /HPF (NEGATIVE) 10/17/21 03:16 Urine Bacteria Negative /HPF (NEGATIVE) 10/17/21 03:16 Ur Culture Indicated? No/not indicated 10/17/21 03:16 Urine Opiates Screen Negative (NEG=<300) 10/17/21 03:16 Urine Methadone Screen Negative (NEG=<300) 10/17/21 03:16 Ur Barbiturates Screen Negative (NEG=<200) 10/17/21 03:16 Ur Phencyclidine Scrn Negative (NEG=<25) 10/17/21 03:16 Ur Amphetamines Screen Negative (NEG=<1000) 10/17/21 03:16 U Benzodiazepines Scrn Negative (NEG=<200) 10/17/21 03:16 Urine Cocaine Screen Negative (NEG=<300) 10/17/21 03:16 U Marijuana (THC) Screen Negative (NEG=<50) 10/17/21 03:16 SARS-CoV-2 (PCR) Negative (NEGATIVE) 10/17/21 03:02 Plan (1) Acute pancreatitis: Status: Acute Plan: ADMIT, NPO, IV HYDRATION WITH POTASSIUM REPLACEMENT, PAIN CONTROL, NAUSEA CONTROL, CONSULT GI, MONITOR LABS (2) Nausea & vomiting: Status: Acute Qualifiers: Vomiting Intractability: non-intractable Vomiting type: unspecified Qualified Code(s): R11.2 - Nausea with vomiting, unspecified Plan: Continue as needed Zofran. (3) Abdominal pain: Status: Acute Plan: Change the Dilaudid interval from every 3 hours to every 2 hours.
--- NOTE | 2021-10-20 20:45 | PCM.PROG ---
Progress Note Progress Note for Day of Date of Exam: 10/19/21 Subjective Subjective: This morning the patient reports that her pain is now controlled. She is feeling much better at this time. Her amylase is now normal and her lipase is only slightly elevated compared to before. Since she is feeling better I will change the interval of her Dilaudid back from every 2 hours to every 3 hours as she has been asking for and demanding every 2 hours according to the nurses. I will give her clear fluids today since her pain is much improved and her enzymes regarding her pancreas are nearly normal. She does well we will try to advance her diet to more solid food later on. Past Medical Family Social History Allergies: Allergies No Known Drug Allergies Allergy (Verified 11/11/19 17:33) Vital Signs and I&O's Vital Signs: Temperature 97.6 F Pulse Rate [Right Brachial] 85 Pulse Rate 73 Respiratory Rate 18 Blood Pressure [Right Arm] 155/91 Blood Pressure [Left Arm] 154/95 Blood Pressure 155/105 O2 Sat by Pulse Oximetry 100 Intake and Output: Intake & Output 10/18/21 10/19/21 10/20/21 10/21/21 11:59 11:59 11:59 11:59 Intake Total 3436 / 3436 3788 / 3788 3770 / 3770 1888 / 1888 Balance 3436 / 3436 3788 / 3788 3770 / 3770 188 / 1888 Physical Exam Oriented: Normal Eyes: Normal Ear: Normal Nose: Normal Throat: Normal Respiratory: Normal Cardiovascular: Normal : Normal Auscultation: Bowel Sounds: Normal Tenderness: Diffuse, Epigastric and Mild Skin: Normal Musculoskeletal: Normal Psychiatric: Normal Mood Description: Calm Affect: Normal Speech Pattern: Clear and Appropriate Laboratory and Diagnostics Result Diagrams: 10/20/21 04:38 10/20/21 04:38 Labs: Laboratory WBC 6.0 X10^3/uL (3.6-10.0) 10/20/21 04:38 RBC 3.41 X10^6/uL (3.5-5.4) L 10/20/21 04:38 Hgb 11.9 g/dL (12.0-16.0) L 10/20/21 04:38 Hct 33.9 % (36.0-47.0) L 10/20/21 04:38 MCV 99.6 fL (80.0-100.0) 10/20/21 04:38 MCH 35.0 pg (27.0-34.0) H 10/20/21 04:38 MCHC 35.1 g/dL (33.0-35.0) H 10/20/21 04:38 RDW 13.5 % (11.6-16.5) 10/20/21 04:38 Plt Count 156 X10^3/uL (150.0-450.0) 10/20/21 04:38 MPV 9.3 fL (7.4-11.0) 10/20/21 04:38 Neut % (Auto) 71.7 % (42.0-75.0) 10/20/21 04:38 Lymph % (Auto) 11.2 % (21.0-51.0) L 10/20/21 04:38 [place] % (Auto) 14.9 % (0.0-13.0) H 10/20/21 04:38 Eos % (Auto) 2.0 % (0.9-2.9) 10/20/21 04:38 Baso % (Auto) 0.2 % (0.2-1.0) 10/20/21 04:38 Neut # (Auto) 4.3 x10^3/uL (2.2-4.8) 10/20/21 04:38 Lymph # (Auto) 0.7 X10^3/uL (1.3-2.9) L 10/20/21 04:38 [place] # (Auto) 0.9 x10^3/uL (0.3-0.8) H 10/20/21 04:38 Eos # (Auto) 0.1 x10^3/uL (0.0-0.2) 10/20/21 04:38 Baso # (Auto) 0.0 X10^3/uL (0.0-0.1) 10/20/21 04:38 Absolute Nucleated RBC 0.1 /100WBC 10/20/21 04:38 PT 13.5 SECONDS (11.8-14.3) 10/17/21 05:48 INR Target Range - 10/17/21 05:48 INR 1.06 (0.8-1.3) 10/17/21 05:48 APTT 25.3 SECONDS (22.9-36.5) 10/17/21 05:48 PTT Comment - 10/17/21 05:48 Sodium 131 mmol/L (136-145) L 10/20/21 04:38 Corrected Sodium TNP 10/20/21 04:38 Potassium 3.7 mmol/L (3.5-5.1) 10/20/21 04:38 Chloride 98 mmol/L (98-107) 10/20/21 04:38 Carbon Dioxide 19.4 mmol/L (21-32) L 10/20/21 04:38 BUN 1 mg/dL (7-18) L 10/20/21 04:38 Creatinine 0.55 mg/dL (0.55-1.02) 10/20/21 04:38 Est GFR (MDRD) Af Amer > 60 (>60) 10/20/21 04:38 Est GFR (MDRD) Non-Af > 60 (>60) 10/20/21 04:38 Glucose 92 mg/dL (65-99) 10/20/21 04:38 Calcium 8.9 mg/dL (8.5-10.1) 10/20/21 04:38 Corrected Calcium 9.8 mg/dL (8.5-10.1) 10/20/21 04:38 Magnesium 1.7 mg/dL (1.7-2.9) 10/20/21 04:38 Total Bilirubin 0.80 mg/dL (0.2-1.0) 10/20/21 04:38 AST 16 Units/L (15-37) 10/20/21 04:38 ALT 18 Units/L (12-78) 10/20/21 04:38 Alkaline Phosphatase 95 Units/L (46-116) 10/20/21 04:38 Total Protein 7.0 g/dL (6.4-8.2) 10/20/21 04:38 Albumin 2.9 g/dL (3.4-5.0) L 10/20/21 04:38 Globulin 4.1 g/dL (2.5-4.5) 10/20/21 04:38 Albumin/Globulin Ratio 0.7 Ratio (1.1-2.1) L 10/20/21 04:38 Triglycerides 123 mg/dL (0-150) 10/17/21 16:40 Cholesterol 150 mg/dL (0-200) 10/17/21 16:40 LDL Cholesterol, Calc 73 mg/dL (0-100) 10/17/21 16:40 HDL Cholesterol 52 mg/dL (40-60) 10/17/21 16:40 Cholesterol/HDL Ratio 2.9 (0.0-5.0) 10/17/21 16:40 Amylase 109 Units/L (25-115) 10/19/21 05:08 Lipase 215 Units/L (73-393) 10/20/21 04:38 Specimen Type Clean catch urine 10/20/21 08:40 Urine Color Pale yellow (YELLOW) 10/20/21 08:40 Urine Appearance Clear (CLEAR) 10/20/21 08:40 Urine pH 7.0 (5.0 - 8.0) 10/20/21 08:40 Ur Specific [place] 1.005 (1.000-1.030) 10/20/21 08:40 Urine Protein Negative (NEGATIVE) 10/20/21 08:40 Urine Glucose (UA) Negative (NEGATIVE) 10/20/21 08:40 Urine Ketones 4+ (NEGATIVE) 10/20/21 08:40 Urine Blood Negative (NEGATIVE) 10/20/21 08:40 Urine Nitrite Negative (NEGATIVE) 10/20/21 08:40 Urine Bilirubin Negative (NEGATIVE) 10/20/21 08:40 Urine Urobilinogen Normal (NORMAL) 10/20/21 08:40 Ur Leukocyte Esterase Negative (NEGATIVE) 10/20/21 08:40 Urine RBC 0-2 /HPF (0-3) 10/17/21 03:16 Urine WBC 0-2 /HPF (0-5) 10/17/21 03:16 Ur Squamous Epith Cells Rare /HPF (NEGATIVE) 10/17/21 03:16 Urine Bacteria Negative /HPF (NEGATIVE) 10/17/21 03:16 Ur Culture Indicated? No/not indicated 10/17/21 03:16 Urine Opiates Screen Negative (NEG=<300) 10/17/21 03:16 Urine Methadone Screen Negative (NEG=<300) 10/17/21 03:16 Ur Barbiturates Screen Negative (NEG=<200) 10/17/21 03:16 Ur Phencyclidine Scrn Negative (NEG=<25) 10/17/21 03:16 Ur Amphetamines Screen Negative (NEG=<1000) 10/17/21 03:16 U Benzodiazepines Scrn Negative (NEG=<200) 10/17/21 03:16 Urine Cocaine Screen Negative (NEG=<300) 10/17/21 03:16 U Marijuana (THC) Screen Negative (NEG=<50) 10/17/21 03:16 SARS-CoV-2 (PCR) Negative (NEGATIVE) 10/17/21 03:02 Plan (1) Acute pancreatitis: Status: Acute Plan: ADMIT, NPO, IV HYDRATION WITH POTASSIUM REPLACEMENT, PAIN CONTROL, NAUSEA CONTROL, CONSULT GI, MONITOR LABS (2) Nausea & vomiting: Status: Acute Qualifiers: Vomiting Intractability: non-intractable Vomiting type: unspecified Qualified Code(s): R11.2 - Nausea with vomiting, unspecified Plan: Continue as needed Zofran. (3) Abdominal pain: Status: Acute Plan: Change the Dilaudid interval from every 3 hours to every 2 hours.
--- NOTE | 2021-10-20 20:51 | PCM.PROG ---
Progress Note Progress Note for Day of Date of Exam: 10/20/21 Subjective Subjective: This morning I walk in the room the patient is lying there seemingly in a fair amount of pain. Nursing reports she is angry that I change her Dilaudid from every 2 hours to every 3 hours yesterday. This morning she is reporting pain in the right upper lateral side of her abdomen. She also reports that she is hurting again in the epigastrium and seems somewhat angry overall. I will go ahead and recheck a CT of the abdomen pelvis today and consult general surgery, Dr. Meadows for evaluation and treatment. I will also check a urinalysis to look for blood to make sure that she is not trying to pass a kidney stone given the pains to the right lateral side of the right upper quadrant. The patient's amylase and lipase are both normal this morning. Is also noted that she has become mildly hyponatremic with a sodium of 131 this morning. She is well-hydrated with a BUN of 1 and creatinine of 0.55. Past Medical Family Social History Allergies: Allergies No Known Drug Allergies Allergy (Verified 11/11/19 17:33) Review of Systems ROS: Changes notes (describe) (Right upper quadrant lateral right upper abdomen pain) Vital Signs and I&O's Vital Signs: Temperature 97.6 F Pulse Rate [Right Brachial] 85 Pulse Rate 73 Respiratory Rate 18 Blood Pressure [Right Arm] 155/91 Blood Pressure [Left Arm] 154/95 Blood Pressure 155/105 O2 Sat by Pulse Oximetry 100 Intake and Output: Intake & Output 10/18/21 10/19/21 10/20/21 10/21/21 11:59 11:59 11:59 11:59 Intake Total 3436 / 3436 3788 / 3788 3770 / 3770 1887 Balance 3436 / 3436 3788 / 3788 3770 / 3770 1887 Physical Exam Oriented: Normal Eyes: Normal Ear: Normal Nose: Normal Throat: Normal Respiratory: Normal Cardiovascular: Normal : Normal Auscultation: Bowel Sounds: Normal Tenderness: Diffuse, RUQ, Epigastric, Mild and Other (Right lateral upper abdomen pain) Skin: Normal Musculoskeletal: Normal Psychiatric: Normal Mood Description: Calm Affect: Normal Speech Pattern: Clear and Appropriate Laboratory and Diagnostics Result Diagrams: 10/20/21 04:38 10/20/21 04:38 Labs: Laboratory WBC 6.0 X10^3/uL (3.6-10.0) 10/20/21 04:38 RBC 3.41 X10^6/uL (3.5-5.4) L 10/20/21 04:38 Hgb 11.9 g/dL (12.0-16.0) L 10/20/21 04:38 Hct 33.9 % (36.0-47.0) L 10/20/21 04:38 MCV 99.6 fL (80.0-100.0) 10/20/21 04:38 MCH 35.0 pg (27.0-34.0) H 10/20/21 04:38 MCHC 35.1 g/dL (33.0-35.0) H 10/20/21 04:38 RDW 13.5 % (11.6-16.5) 10/20/21 04:38 Plt Count 156 X10^3/uL (150.0-450.0) 10/20/21 04:38 MPV 9.3 fL (7.4-11.0) 10/20/21 04:38 Neut % (Auto) 71.7 % (42.0-75.0) 10/20/21 04:38 Lymph % (Auto) 11.2 % (21.0-51.0) L 10/20/21 04:38 [place] % (Auto) 14.9 % (0.0-13.0) H 10/20/21 04:38 Eos % (Auto) 2.0 % (0.9-2.9) 10/20/21 04:38 Baso % (Auto) 0.2 % (0.2-1.0) 10/20/21 04:38 Neut # (Auto) 4.3 x10^3/uL (2.2-4.8) 10/20/21 04:38 Lymph # (Auto) 0.7 X10^3/uL (1.3-2.9) L 10/20/21 04:38 [place] # (Auto) 0.9 x10^3/uL (0.3-0.8) H 10/20/21 04:38 Eos # (Auto) 0.1 x10^3/uL (0.0-0.2) 10/20/21 04:38 Baso # (Auto) 0.0 X10^3/uL (0.0-0.1) 10/20/21 04:38 Absolute Nucleated RBC 0.1 /100WBC 10/20/21 04:38 PT 13.5 SECONDS (11.8-14.3) 10/17/21 05:48 INR Target Range - 10/17/21 05:48 INR 1.06 (0.8-1.3) 10/17/21 05:48 APTT 25.3 SECONDS (22.9-36.5) 10/17/21 05:48 PTT Comment - 10/17/21 05:48 Sodium 131 mmol/L (136-145) L 10/20/21 04:38 Corrected Sodium TNP 10/20/21 04:38 Potassium 3.7 mmol/L (3.5-5.1) 10/20/21 04:38 Chloride 98 mmol/L (98-107) 10/20/21 04:38 Carbon Dioxide 19.4 mmol/L (21-32) L 10/20/21 04:38 BUN 1 mg/dL (7-18) L 10/20/21 04:38 Creatinine 0.55 mg/dL (0.55-1.02) 10/20/21 04:38 Est GFR (MDRD) Af Amer > 60 (>60) 10/20/21 04:38 Est GFR (MDRD) Non-Af > 60 (>60) 10/20/21 04:38 Glucose 92 mg/dL (65-99) 10/20/21 04:38 Calcium 8.9 mg/dL (8.5-10.1) 10/20/21 04:38 Corrected Calcium 9.8 mg/dL (8.5-10.1) 10/20/21 04:38 Magnesium 1.7 mg/dL (1.7-2.9) 10/20/21 04:38 Total Bilirubin 0.80 mg/dL (0.2-1.0) 10/20/21 04:38 AST 16 Units/L (15-37) 10/20/21 04:38 ALT 18 Units/L (12-78) 10/20/21 04:38 Alkaline Phosphatase 95 Units/L (46-116) 10/20/21 04:38 Total Protein 7.0 g/dL (6.4-8.2) 10/20/21 04:38 Albumin 2.9 g/dL (3.4-5.0) L 10/20/21 04:38 Globulin 4.1 g/dL (2.5-4.5) 10/20/21 04:38 Albumin/Globulin Ratio 0.7 Ratio (1.1-2.1) L 10/20/21 04:38 Triglycerides 123 mg/dL (0-150) 10/17/21 16:40 Cholesterol 150 mg/dL (0-200) 10/17/21 16:40 LDL Cholesterol, Calc 73 mg/dL (0-100) 10/17/21 16:40 HDL Cholesterol 52 mg/dL (40-60) 10/17/21 16:40 Cholesterol/HDL Ratio 2.9 (0.0-5.0) 10/17/21 16:40 Amylase 109 Units/L (25-115) 10/19/21 05:08 Lipase 215 Units/L (73-393) 10/20/21 04:38 Specimen Type Clean catch urine 10/20/21 08:40 Urine Color Pale yellow (YELLOW) 10/20/21 08:40 Urine Appearance Clear (CLEAR) 10/20/21 08:40 Urine pH 7.0 (5.0 - 8.0) 10/20/21 08:40 Ur Specific [place] 1.005 (1.000-1.030) 10/20/21 08:40 Urine Protein Negative (NEGATIVE) 10/20/21 08:40 Urine Glucose (UA) Negative (NEGATIVE) 10/20/21 08:40 Urine Ketones 4+ (NEGATIVE) 10/20/21 08:40 Urine Blood Negative (NEGATIVE) 10/20/21 08:40 Urine Nitrite Negative (NEGATIVE) 10/20/21 08:40 Urine Bilirubin Negative (NEGATIVE) 10/20/21 08:40 Urine Urobilinogen Normal (NORMAL) 10/20/21 08:40 Ur Leukocyte Esterase Negative (NEGATIVE) 10/20/21 08:40 Urine RBC 0-2 /HPF (0-3) 10/17/21 03:16 Urine WBC 0-2 /HPF (0-5) 10/17/21 03:16 Ur Squamous Epith Cells Rare /HPF (NEGATIVE) 10/17/21 03:16 Urine Bacteria Negative /HPF (NEGATIVE) 10/17/21 03:16 Ur Culture Indicated? No/not indicated 10/17/21 03:16 Urine Opiates Screen Negative (NEG=<300) 10/17/21 03:16 Urine Methadone Screen Negative (NEG=<300) 10/17/21 03:16 Ur Barbiturates Screen Negative (NEG=<200) 10/17/21 03:16 Ur Phencyclidine Scrn Negative (NEG=<25) 10/17/21 03:16 Ur Amphetamines Screen Negative (NEG=<1000) 10/17/21 03:16 U Benzodiazepines Scrn Negative (NEG=<200) 10/17/21 03:16 Urine Cocaine Screen Negative (NEG=<300) 10/17/21 03:16 U Marijuana (THC) Screen Negative (NEG=<50) 10/17/21 03:16 SARS-CoV-2 (PCR) Negative (NEGATIVE) 10/17/21 03:02 Plan (1) Acute pancreatitis: Status: Resolved Plan: ADMIT, NPO, IV HYDRATION WITH POTASSIUM REPLACEMENT, PAIN CONTROL, NAUSEA CONTROL, CONSULT GI, MONITOR LABS (2) Nausea & vomiting: Status: Acute Qualifiers: Vomiting Intractability: non-intractable Vomiting type: unspecified Qualified Code(s): R11.2 - Nausea with vomiting, unspecified Plan: Continue as needed Zofran. (3) Abdominal pain: Status: Acute Narrative Support Text: Right upper quadrant and right lateral upper abdomen pain. Plan: Continue Dilaudid 2 mg every 3 hours as needed pain repeat CT abdomen pelvis and consult general surgery Dr. Kaminski.
[2021-10-20] MEDS: COLACE CAP 100 MG PO SCH (21:30)
[2021-10-21] MEDS: ZOFRAN INJ 4 MG VIAL IVP PRN ×6 (03:01→23:36)
[2021-10-21] MEDS: DILAUDID INJ IVP PRN ×6 (03:01→23:36)
[2021-10-21 05:20] LABS: ALANINE AMINOTRANSFERASE 15 Units/L (12-78); ALBUMIN 2.4 g/dL (3.4-5.0); ALKALINE PHOSPHATASE 79 Units/L (46-116); ASPARTATE AMINO TRANSFERASE 14 Units/L (15-37); BLOOD UREA NITROGEN 2 mg/dL (7-18); CALCIUM 8.9 mg/dL (8.5-10.1); CARBON DIOXIDE 22.5 mmol/L (21-32); CHLORIDE 104 mmol/L (98-107); COR CA(FOR HYPOALB) 10.2 mg/dL (8.5-10.1); CREATININE 0.45 mg/dL (0.55-1.02); SODIUM 136 mmol/L (136-145); eGFR NON BLACK RACES > 60 (>60)
[2021-10-21 05:21] LABS: BASOPHILS % (AUTO) 0.5 % (0.2-1.0); EOSINOPHILS # (AUTO) 0.1 x10^3/uL (0.0-0.2); EOSINOPHILS % (AUTO) 4.4 % (0.9-2.9); HEMATOCRIT 30.6 % (36.0-47.0); HEMOGLOBIN 10.8 g/dL (12.0-16.0); LYMPHOCYTES # (AUTO) 0.6 X10^3/uL (1.3-2.9); LYMPHOCYTES % (AUTO) 18.3 % (21.0-51.0); MEAN CORPUSCULAR HEMOGLOBIN 35.4 pg (27.0-34.0); MEAN CORPUSCULAR HGB CONC 35.4 g/dL (33.0-35.0); MEAN CORPUSCULAR VOLUME 100.1 fL (80.0-100.0); MEAN PLATELET VOLUME 8.9 fL (7.4-11.0); MONOCYTES # (AUTO) 0.6 x10^3/uL (0.3-0.8); MONOCYTES % (AUTO) 17.2 % (0.0-13.0); NEUTROPHILS % (AUTO) 59.6 % (42.0-75.0); RED BLOOD COUNT 3.05 X10^6/uL (3.5-5.4); RED CELL DISTRIBUTION WIDTH 13.5 % (11.6-16.5); WHITE BLOOD COUNT 3.4 X10^3/uL (3.6-10.0)
[2021-10-21] MEDS: TORADOL 30 MG VIAL IVP PRN ×3 (05:39→20:20)
[2021-10-21] MEDS: NS + KCL 20 MEQ/L 1,000 ML IV SCH ×2 (05:39→21:57)
[2021-10-21] MEDS: PROTONIX INJ 40 MG VIAL IVP SCH ×2 (08:01→20:06)
[2021-10-21] MEDS: ZOSYN VIAL 3.375 GRAMS 3.375 G in NS 100 ML IV 100 ML IV SCH ×3 (11:13→21:11)
--- NOTE | 2021-10-21 11:41 | PCM.PROG ---
Progress Note Progress Note for Day of Date of Exam: 10/21/21 Subjective Subjective: Pt is a 41 year old female admitted for pancreatitis. This morning she reports having abdominal pain that has improved only slightly from yesterday. No acute events overnight. Labs/imaging: Wbc 3.4, Hgb 10.8, Plt 160, Na 136, K 4.1, Creatinine 0.45, Glucose 92. CTAP was obtained that revealed: Worsened peripancreatic fat stranding consistent with worsening of pancreatitis. No discernible fluid collection. Evaluation limited without contrast. Worsened free fluid in the pelvis. General surgery-Dr. Meadows was consulted for evaluation and treatment. The patient's amylase and lipase have normalized. Pt is willing to advance diet, will try clear liquids for now. Add Zosyn based on CTAP results. Continue pain management-Dilaudid, IVF NS@125ml/h, IV protonix 40mg BID. Continue to closely monitor and follow up labs. Past Medical Family Social History Allergies: Allergies No Known Drug Allergies Allergy (Verified 11/11/19 17:33) Review of Systems ROS: Changes notes (describe) (Right upper quadrant lateral right upper abdomen pain) Vital Signs and I&O's Vital Signs: Temperature 98.0 F Pulse Rate [Right Brachial] 94 Pulse Rate 73 Respiratory Rate 18 Blood Pressure [Right Arm] 127/78 Blood Pressure [Left Arm] 154/95 Blood Pressure 155/105 O2 Sat by Pulse Oximetry 99 Intake and Output: Intake & Output 10/18/21 10/19/21 10/20/21 10/21/21 23:59 23:59 23:59 23:59 Intake Total 3351 / 3351 4190 / 4190 3766 / 3766 702 / 702 Balance 3351 / 3351 4190 / 4190 3766 / 3766 702 / 702 Physical Exam Oriented: Normal Eyes: Normal Ear: Normal Nose: Normal Throat: Normal Respiratory: Normal Cardiovascular: Normal : Normal Auscultation: Bowel Sounds: Normal Tenderness: Diffuse, RUQ, Epigastric, Mild and Other (Right lateral upper abdomen pain) Skin: Normal Musculoskeletal: Normal Psychiatric: Normal Mood Description: Calm Affect: Normal Speech Pattern: Clear and Appropriate Laboratory and Diagnostics Result Diagrams: 10/21/21 04:10 10/21/21 04:10 Labs: Laboratory WBC 3.4 X10^3/uL (3.6-10.0) L 10/21/21 04:10 RBC 3.05 X10^6/uL (3.5-5.4) L 10/21/21 04:10 Hgb 10.8 g/dL (12.0-16.0) L 10/21/21 04:10 Hct 30.6 % (36.0-47.0) L 10/21/21 04:10 MCV 100.1 fL (80.0-100.0) H 10/21/21 04:10 MCH 35.4 pg (27.0-34.0) H 10/21/21 04:10 MCHC 35.4 g/dL (33.0-35.0) H 10/21/21 04:10 RDW 13.5 % (11.6-16.5) 10/21/21 04:10 Plt Count 160 X10^3/uL (150.0-450.0) 10/21/21 04:10 MPV 8.9 fL (7.4-11.0) 10/21/21 04:10 Neut % (Auto) 59.6 % (42.0-75.0) 10/21/21 04:10 Lymph % (Auto) 18.3 % (21.0-51.0) L 10/21/21 04:10 [place] % (Auto) 17.2 % (0.0-13.0) H 10/21/21 04:10 Eos % (Auto) 4.4 % (0.9-2.9) H 10/21/21 04:10 Baso % (Auto) 0.5 % (0.2-1.0) 10/21/21 04:10 Neut # (Auto) 2.0 x10^3/uL (2.2-4.8) L 10/21/21 04:10 Lymph # (Auto) 0.6 X10^3/uL (1.3-2.9) L 10/21/21 04:10 [place] # (Auto) 0.6 x10^3/uL (0.3-0.8) 10/21/21 04:10 Eos # (Auto) 0.1 x10^3/uL (0.0-0.2) 10/21/21 04:10 Baso # (Auto) 0.0 X10^3/uL (0.0-0.1) 10/21/21 04:10 Absolute Nucleated RBC 0.1 /100WBC 10/21/21 04:10 PT 13.5 SECONDS (11.8-14.3) 10/17/21 05:48 INR Target Range - 10/17/21 05:48 INR 1.06 (0.8-1.3) 10/17/21 05:48 APTT 25.3 SECONDS (22.9-36.5) 10/17/21 05:48 PTT Comment - 10/17/21 05:48 Sodium 136 mmol/L (136-145) 10/21/21 04:10 Corrected Sodium TNP 10/21/21 04:10 Potassium 4.1 mmol/L (3.5-5.1) 10/21/21 04:10 Chloride 104 mmol/L (98-107) 10/21/21 04:10 Carbon Dioxide 22.5 mmol/L (21-32) 10/21/21 04:10 BUN 2 mg/dL (7-18) L 10/21/21 04:10 Creatinine 0.45 mg/dL (0.55-1.02) L 10/21/21 04:10 Est GFR (MDRD) Af Amer > 60 (>60) 10/21/21 04:10 Est GFR (MDRD) Non-Af > 60 (>60) 10/21/21 04:10 Glucose 92 mg/dL (65-99) 10/21/21 04:10 Calcium 8.9 mg/dL (8.5-10.1) 10/21/21 04:10 Corrected Calcium 10.2 mg/dL (8.5-10.1) H 10/21/21 04:10 Magnesium 1.7 mg/dL (1.7-2.9) 10/20/21 04:38 Total Bilirubin 0.60 mg/dL (0.2-1.0) 10/21/21 04:10 AST 14 Units/L (15-37) L 10/21/21 04:10 ALT 15 Units/L (12-78) 10/21/21 04:10 Alkaline Phosphatase 79 Units/L (46-116) 10/21/21 04:10 Total Protein 6.0 g/dL (6.4-8.2) L 10/21/21 04:10 Albumin 2.4 g/dL (3.4-5.0) L 10/21/21 04:10 Globulin 3.6 g/dL (2.5-4.5) 10/21/21 04:10 Albumin/Globulin Ratio 0.7 Ratio (1.1-2.1) L 10/21/21 04:10 Triglycerides 123 mg/dL (0-150) 10/17/21 16:40 Cholesterol 150 mg/dL (0-200) 10/17/21 16:40 LDL Cholesterol, Calc 73 mg/dL (0-100) 10/17/21 16:40 HDL Cholesterol 52 mg/dL (40-60) 10/17/21 16:40 Cholesterol/HDL Ratio 2.9 (0.0-5.0) 10/17/21 16:40 Amylase 109 Units/L (25-115) 10/19/21 05:08 Lipase 215 Units/L (73-393) 10/20/21 04:38 Specimen Type Clean catch urine 10/20/21 08:40 Urine Color Pale yellow (YELLOW) 10/20/21 08:40 Urine Appearance Clear (CLEAR) 10/20/21 08:40 Urine pH 7.0 (5.0 - 8.0) 10/20/21 08:40 Ur Specific [place] 1.005 (1.000-1.030) 10/20/21 08:40 Urine Protein Negative (NEGATIVE) 10/20/21 08:40 Urine Glucose (UA) Negative (NEGATIVE) 10/20/21 08:40 Urine Ketones 4+ (NEGATIVE) 10/20/21 08:40 Urine Blood Negative (NEGATIVE) 10/20/21 08:40 Urine Nitrite Negative (NEGATIVE) 10/20/21 08:40 Urine Bilirubin Negative (NEGATIVE) 10/20/21 08:40 Urine Urobilinogen Normal (NORMAL) 10/20/21 08:40 Ur Leukocyte Esterase Negative (NEGATIVE) 10/20/21 08:40 Urine RBC 0-2 /HPF (0-3) 10/17/21 03:16 Urine WBC 0-2 /HPF (0-5) 10/17/21 03:16 Ur Squamous Epith Cells Rare /HPF (NEGATIVE) 10/17/21 03:16 Urine Bacteria Negative /HPF (NEGATIVE) 10/17/21 03:16 Ur Culture Indicated? No/not indicated 10/17/21 03:16 Urine Opiates Screen Negative (NEG=<300) 10/17/21 03:16 Urine Methadone Screen Negative (NEG=<300) 10/17/21 03:16 Ur Barbiturates Screen Negative (NEG=<200) 10/17/21 03:16 Ur Phencyclidine Scrn Negative (NEG=<25) 10/17/21 03:16 Ur Amphetamines Screen Negative (NEG=<1000) 10/17/21 03:16 U Benzodiazepines Scrn Negative (NEG=<200) 10/17/21 03:16 Urine Cocaine Screen Negative (NEG=<300) 10/17/21 03:16 U Marijuana (THC) Screen Negative (NEG=<50) 10/17/21 03:16 SARS-CoV-2 (PCR) Negative (NEGATIVE) 10/17/21 03:02 Plan (1) Acute pancreatitis: Status: Resolved Plan: ADMIT, NPO, IV HYDRATION WITH POTASSIUM REPLACEMENT, PAIN CONTROL, NAUSEA CONTROL, CONSULT GI, MONITOR LABS (2) Nausea & vomiting: Status: Acute Qualifiers: Vomiting Intractability: non-intractable Vomiting type: unspecified Qualified Code(s): R11.2 - Nausea with vomiting, unspecified Plan: Continue as needed Zofran. (3) Abdominal pain: Status: Acute Plan: Continue Dilaudid 2 mg every 3 hours as needed pain repeat CT abdomen pelvis and consult general surgery Dr. Kaminski.
[2021-10-21] MEDS ORDERED: NS 500 ML IV 500 ML IV PRN (18:43)
[2021-10-21] MEDS: COLACE CAP 100 MG PO SCH (20:05)
[2021-10-22] MEDS: ZOFRAN INJ 4 MG VIAL IVP PRN ×5 (04:00→21:42)
[2021-10-22] MEDS: DILAUDID INJ IVP PRN ×5 (04:00→21:41)
[2021-10-22] MEDS: NS + KCL 20 MEQ/L 1,000 ML IV SCH ×2 (05:08→16:22)
[2021-10-22] MEDS: ZOSYN VIAL 3.375 GRAMS 3.375 G in NS 100 ML IV 100 ML IV SCH ×3 (05:09→21:47)
[2021-10-22 05:15] LABS: BASOPHILS % (AUTO) 0.6 % (0.2-1.0); EOSINOPHILS # (AUTO) 0.2 x10^3/uL (0.0-0.2); EOSINOPHILS % (AUTO) 6.1 % (0.9-2.9); HEMOGLOBIN 10.2 g/dL (12.0-16.0); LYMPHOCYTES # (AUTO) 0.9 X10^3/uL (1.3-2.9); MEAN CORPUSCULAR HGB CONC 35.3 g/dL (33.0-35.0); MEAN CORPUSCULAR VOLUME 99.1 fL (80.0-100.0); MONOCYTES # (AUTO) 0.7 x10^3/uL (0.3-0.8); MONOCYTES % (AUTO) 18.3 % (0.0-13.0); RED BLOOD COUNT 2.93 X10^6/uL (3.5-5.4); RED CELL DISTRIBUTION WIDTH 13.9 % (11.6-16.5); WHITE BLOOD COUNT 3.9 X10^3/uL (3.6-10.0)
[2021-10-22] MEDS: TORADOL 30 MG VIAL IVP PRN ×3 (05:15→23:39)
[2021-10-22 05:27] LABS: ALANINE AMINOTRANSFERASE 13 Units/L (12-78); ALBUMIN 2.3 g/dL (3.4-5.0); ALKALINE PHOSPHATASE 68 Units/L (46-116); AMYLASE 34 Units/L (25-115); ASPARTATE AMINO TRANSFERASE 14 Units/L (15-37); BLOOD UREA NITROGEN 2 mg/dL (7-18); CALCIUM 8.2 mg/dL (8.5-10.1); CARBON DIOXIDE 19.7 mmol/L (21-32); CHLORIDE 103 mmol/L (98-107); COR CA(FOR HYPOALB) 9.6 mg/dL (8.5-10.1); CREATININE 0.41 mg/dL (0.55-1.02); LIPASE 222 Units/L (73-393); SODIUM 135 mmol/L (136-145); TOTAL PROTEIN 5.7 g/dL (6.4-8.2); eGFR NON BLACK RACES > 60 (>60)
[2021-10-22] MEDS: PROTONIX INJ 40 MG VIAL IVP SCH ×2 (08:09→21:35)
[2021-10-22] MEDS ORDERED: APRESOLINE INJ 20 MG VIAL IVP PRN (11:29)
--- NOTE | 2021-10-22 12:02 | PCM.PROG ---
Progress Note Progress Note for Day of Date of Exam: 10/22/21 Subjective Subjective: Pt is a 41 year old female admitted for pancreatitis. This morning she reports abdominal pain has improved and she was able to tolerate clear liquid diet. No acute events overnight. Will advance her today to full liquid diet. Labs/imaging: Wbc 3.9, Hgb 10.2, Plt 180, Na 135, K 3.6, Creatinine 0.41, Glucose 88, Lipase 222. General surgery-Dr. Meadows was consulted for evaluation and treatment. The patient's amylase and lipase have normalized. Continue pain management-Dilaudid, IVF NS@125ml/h, IV Zosyn, IV protonix 40mg BID. Continue to closely monitor and follow up labs. Past Medical Family Social History Allergies: Allergies No Known Drug Allergies Allergy (Verified 11/11/19 17:33) Review of Systems ROS: Changes notes (describe) (mild- mod epigastric pain) Vital Signs and I&O's Vital Signs: Temperature 97.8 F Pulse Rate [Right Brachial] 83 Pulse Rate 73 Respiratory Rate 20 Blood Pressure [Right Arm] 153/85 Blood Pressure [Left Arm] 154/95 Blood Pressure 155/105 O2 Sat by Pulse Oximetry 98 Intake and Output: Intake & Output 10/19/21 10/20/21 10/21/21 10/22/21 23:59 23:59 23:59 23:59 Intake Total 4190 / 4190 3766 / 3766 2987 / 2987 1260 / 1260 Balance 4190 / 4190 3766 / 3766 2987 / 2987 1260 / 1260 Physical Exam Oriented: Normal Eyes: Normal Ear: Normal Nose: Normal Throat: Normal Respiratory: Normal Cardiovascular: Normal : Normal Auscultation: Bowel Sounds: Normal Tenderness: Epigastric and Mild Skin: Normal Musculoskeletal: Normal Psychiatric: Normal Mood Description: Calm Affect: Normal Speech Pattern: Clear and Appropriate Laboratory and Diagnostics Result Diagrams: 10/22/21 04:35 10/22/21 04:35 Labs: Laboratory WBC 3.9 X10^3/uL (3.6-10.0) 10/22/21 04:35 RBC 2.93 X10^6/uL (3.5-5.4) L 10/22/21 04:35 Hgb 10.2 g/dL (12.0-16.0) L 10/22/21 04:35 Hct 29.0 % (36.0-47.0) L 10/22/21 04:35 MCV 99.1 fL (80.0-100.0) 10/22/21 04:35 MCH 35.0 pg (27.0-34.0) H 10/22/21 04:35 MCHC 35.3 g/dL (33.0-35.0) H 10/22/21 04:35 RDW 13.9 % (11.6-16.5) 10/22/21 04:35 Plt Count 180 X10^3/uL (150.0-450.0) 10/22/21 04:35 MPV 9.0 fL (7.4-11.0) 10/22/21 04:35 Neut % (Auto) 52.0 % (42.0-75.0) 10/22/21 04:35 Lymph % (Auto) 23.0 % (21.0-51.0) 10/22/21 04:35 [place] % (Auto) 18.3 % (0.0-13.0) H 10/22/21 04:35 Eos % (Auto) 6.1 % (0.9-2.9) H 10/22/21 04:35 Baso % (Auto) 0.6 % (0.2-1.0) 10/22/21 04:35 Neut # (Auto) 2.0 x10^3/uL (2.2-4.8) L 10/22/21 04:35 Lymph # (Auto) 0.9 X10^3/uL (1.3-2.9) L 10/22/21 04:35 [place] # (Auto) 0.7 x10^3/uL (0.3-0.8) 10/22/21 04:35 Eos # (Auto) 0.2 x10^3/uL (0.0-0.2) 10/22/21 04:35 Baso # (Auto) 0.0 X10^3/uL (0.0-0.1) 10/22/21 04:35 Absolute Nucleated RBC 0.0 /100WBC 10/22/21 04:35 PT 13.5 SECONDS (11.8-14.3) 10/17/21 05:48 INR Target Range - 10/17/21 05:48 INR 1.06 (0.8-1.3) 10/17/21 05:48 APTT 25.3 SECONDS (22.9-36.5) 10/17/21 05:48 PTT Comment - 10/17/21 05:48 Sodium 135 mmol/L (136-145) L 10/22/21 04:35 Corrected Sodium TNP 10/22/21 04:35 Potassium 3.6 mmol/L (3.5-5.1) 10/22/21 04:35 Chloride 103 mmol/L (98-107) 10/22/21 04:35 Carbon Dioxide 19.7 mmol/L (21-32) L 10/22/21 04:35 BUN 2 mg/dL (7-18) L 10/22/21 04:35 Creatinine 0.41 mg/dL (0.55-1.02) L 10/22/21 04:35 Est GFR (MDRD) Af Amer > 60 (>60) 10/22/21 04:35 Est GFR (MDRD) Non-Af > 60 (>60) 10/22/21 04:35 Glucose 88 mg/dL (65-99) 10/22/21 04:35 Calcium 8.2 mg/dL (8.5-10.1) L 10/22/21 04:35 Corrected Calcium 9.6 mg/dL (8.5-10.1) 10/22/21 04:35 Magnesium 1.7 mg/dL (1.7-2.9) 10/20/21 04:38 Total Bilirubin 0.40 mg/dL (0.2-1.0) 10/22/21 04:35 AST 14 Units/L (15-37) L 10/22/21 04:35 ALT 13 Units/L (12-78) 10/22/21 04:35 Alkaline Phosphatase 68 Units/L (46-116) 10/22/21 04:35 Total Protein 5.7 g/dL (6.4-8.2) L 10/22/21 04:35 Albumin 2.3 g/dL (3.4-5.0) L 10/22/21 04:35 Globulin 3.4 g/dL (2.5-4.5) 10/22/21 04:35 Albumin/Globulin Ratio 0.7 Ratio (1.1-2.1) L 10/22/21 04:35 Triglycerides 123 mg/dL (0-150) 10/17/21 16:40 Cholesterol 150 mg/dL (0-200) 10/17/21 16:40 LDL Cholesterol, Calc 73 mg/dL (0-100) 10/17/21 16:40 HDL Cholesterol 52 mg/dL (40-60) 10/17/21 16:40 Cholesterol/HDL Ratio 2.9 (0.0-5.0) 10/17/21 16:40 Amylase 34 Units/L (25-115) 10/22/21 04:35 Lipase 222 Units/L (73-393) 10/22/21 04:35 Specimen Type Clean catch urine 10/20/21 08:40 Urine Color Pale yellow (YELLOW) 10/20/21 08:40 Urine Appearance Clear (CLEAR) 10/20/21 08:40 Urine pH 7.0 (5.0 - 8.0) 10/20/21 08:40 Ur Specific [place] 1.005 (1.000-1.030) 10/20/21 08:40 Urine Protein Negative (NEGATIVE) 10/20/21 08:40 Urine Glucose (UA) Negative (NEGATIVE) 10/20/21 08:40 Urine Ketones 4+ (NEGATIVE) 10/20/21 08:40 Urine Blood Negative (NEGATIVE) 10/20/21 08:40 Urine Nitrite Negative (NEGATIVE) 10/20/21 08:40 Urine Bilirubin Negative (NEGATIVE) 10/20/21 08:40 Urine Urobilinogen Normal (NORMAL) 10/20/21 08:40 Ur Leukocyte Esterase Negative (NEGATIVE) 10/20/21 08:40 Urine RBC 0-2 /HPF (0-3) 10/17/21 03:16 Urine WBC 0-2 /HPF (0-5) 10/17/21 03:16 Ur Squamous Epith Cells Rare /HPF (NEGATIVE) 10/17/21 03:16 Urine Bacteria Negative /HPF (NEGATIVE) 10/17/21 03:16 Ur Culture Indicated? No/not indicated 10/17/21 03:16 Urine Opiates Screen Negative (NEG=<300) 10/17/21 03:16 Urine Methadone Screen Negative (NEG=<300) 10/17/21 03:16 Ur Barbiturates Screen Negative (NEG=<200) 10/17/21 03:16 Ur Phencyclidine Scrn Negative (NEG=<25) 10/17/21 03:16 Ur Amphetamines Screen Negative (NEG=<1000) 10/17/21 03:16 U Benzodiazepines Scrn Negative (NEG=<200) 10/17/21 03:16 Urine Cocaine Screen Negative (NEG=<300) 10/17/21 03:16 U Marijuana (THC) Screen Negative (NEG=<50) 10/17/21 03:16 SARS-CoV-2 (PCR) Negative (NEGATIVE) 10/17/21 03:02 Plan (1) Acute pancreatitis: Status: Resolved Plan: ADMIT, NPO, IV HYDRATION WITH POTASSIUM REPLACEMENT, PAIN CONTROL, NAUSEA CONTROL, CONSULT GI, MONITOR LABS (2) Nausea & vomiting: Status: Acute Qualifiers: Vomiting Intractability: non-intractable Vomiting type: unspecified Qualified Code(s): R11.2 - Nausea with vomiting, unspecified Plan: Continue as needed Zofran. (3) Abdominal pain: Status: Acute
[2021-10-22] MEDS: COLACE CAP 100 MG PO SCH (21:34)
[2021-10-23] MEDS: DILAUDID INJ IVP PRN ×2 (01:58→06:05)
[2021-10-23] MEDS: ZOFRAN INJ 4 MG VIAL IVP PRN (02:55)
[2021-10-23] MEDS: NS + KCL 20 MEQ/L 1,000 ML IV SCH ×2 (02:56→04:13)
[2021-10-23] MEDS: ZOSYN VIAL 3.375 GRAMS 3.375 G in NS 100 ML IV 100 ML IV SCH (05:45)
[2021-10-23 05:47] LABS: ALANINE AMINOTRANSFERASE 15 Units/L (12-78); ALBUMIN 2.3 g/dL (3.4-5.0); ALKALINE PHOSPHATASE 70 Units/L (46-116); ASPARTATE AMINO TRANSFERASE 16 Units/L (15-37); BLOOD UREA NITROGEN 1 mg/dL (7-18); CALCIUM 8.8 mg/dL (8.5-10.1); CARBON DIOXIDE 22.2 mmol/L (21-32); CHLORIDE 104 mmol/L (98-107); COR CA(FOR HYPOALB) 10.2 mg/dL (8.5-10.1); COR NA(FOR HYPERGLY) 135 mmol/L (136-145); CREATININE 0.45 mg/dL (0.55-1.02); SODIUM 135 mmol/L (136-145); TOTAL PROTEIN 5.8 g/dL (6.4-8.2); eGFR NON BLACK RACES > 60 (>60)
[2021-10-23 06:29] LABS: BASOPHILS % (AUTO) 0.9 % (0.2-1.0); EOSINOPHILS # (AUTO) 0.3 x10^3/uL (0.0-0.2); HEMATOCRIT 33.6 % (36.0-47.0); HEMOGLOBIN 11.9 g/dL (12.0-16.0); LYMPHOCYTES # (AUTO) 1.3 X10^3/uL (1.3-2.9); LYMPHOCYTES % (AUTO) 29.5 % (21.0-51.0); MEAN CORPUSCULAR HGB CONC 35.5 g/dL (33.0-35.0); MEAN CORPUSCULAR VOLUME 98.6 fL (80.0-100.0); MEAN PLATELET VOLUME 8.1 fL (7.4-11.0); MONOCYTES # (AUTO) 0.6 x10^3/uL (0.3-0.8); MONOCYTES % (AUTO) 12.3 % (0.0-13.0); NEUTROPHILS # (AUTO) 2.3 x10^3/uL (2.2-4.8); NEUTROPHILS % (AUTO) 51.3 % (42.0-75.0); RED BLOOD COUNT 3.41 X10^6/uL (3.5-5.4); RED CELL DISTRIBUTION WIDTH 13.7 % (11.6-16.5); WHITE BLOOD COUNT 4.5 X10^3/uL (3.6-10.0)
[2021-10-23] MEDS: TORADOL 30 MG VIAL IVP PRN (07:25)
[2021-10-23 09:04] VITALS: BP 138/95
[2021-10-23] MEDS: PROTONIX INJ 40 MG VIAL IVP SCH (09:15)
--- NOTE | 2021-10-26 10:33 | PCM.DCPLAN ---
DISCHARGE SUMMARY Admission Date Date of Admission: 10/17/21 Discharge Date Discharge Date: 10/23/21 Admission Diagnoses (1) Acute pancreatitis: Status: Resolved (2) Nausea & vomiting: Status: Acute (3) Abdominal pain: Status: Acute Discharge Diagnoses Discharge Diagnosis: 1. Acute pancreatitis resolved 2. Nausea vomiting resolved 3. Epigastric/abdominal pain resolved Discharge Medications Discharge Medications: Home Medication List hydrocodone 10 mg-acetaminophen 325 mg tablet 1 tab PO Q6H PRN Pain #40 tabs 10/23/21 [Rx] ketorolac 10 mg tablet 10 mg PO Q6H PRN #20 tabs 10/23/21 [Rx] ondansetron 8 mg disintegrating tablet 8 mg PO Q8H PRN #30 tabs 10/23/21 [Rx] pantoprazole 40 mg tablet,delayed release 40 mg PO QDAY #30 tabs 10/23/21 [Rx] Prescriptions: hydrocodone-acetaminophen BOB,HILARY ketorolac BOB,HILARY ondansetron BOB,HILARY pantoprazole BOB,HILARY Hospital Course Vital Signs: Temperature 98.2 F Pulse Rate [Right Brachial] 81 Pulse Rate 73 Respiratory Rate 18 Blood Pressure [Right Arm] 138/95 Blood Pressure [Left Arm] 154/95 Blood Pressure 155/105 O2 Sat by Pulse Oximetry 99 Latest Lab Results: Laboratory Last Values WBC 4.5 X10^3/uL (3.6-10.0) 10/23/21 06:19 RBC 3.41 X10^6/uL (3.5-5.4) L 10/23/21 06:19 Hgb 11.9 g/dL (12.0-16.0) L 10/23/21 06:19 Hct 33.6 % (36.0-47.0) L 10/23/21 06:19 MCV 98.6 fL (80.0-100.0) 10/23/21 06:19 MCH 35.0 pg (27.0-34.0) H 10/23/21 06:19 MCHC 35.5 g/dL (33.0-35.0) H 10/23/21 06:19 RDW 13.7 % (11.6-16.5) 10/23/21 06:19 Plt Count 259 X10^3/uL (150.0-450.0) 10/23/21 06:19 MPV 8.1 fL (7.4-11.0) 10/23/21 06:19 Neut % (Auto) 51.3 % (42.0-75.0) 10/23/21 06:19 Lymph % (Auto) 29.5 % (21.0-51.0) 10/23/21 06:19 [place] % (Auto) 12.3 % (0.0-13.0) 10/23/21 06:19 Eos % (Auto) 6.0 % (0.9-2.9) H 10/23/21 06:19 Baso % (Auto) 0.9 % (0.2-1.0) 10/23/21 06:19 Neut # (Auto) 2.3 x10^3/uL (2.2-4.8) 10/23/21 06:19 Lymph # (Auto) 1.3 X10^3/uL (1.3-2.9) 10/23/21 06:19 [place] # (Auto) 0.6 x10^3/uL (0.3-0.8) 10/23/21 06:19 Eos # (Auto) 0.3 x10^3/uL (0.0-0.2) H 10/23/21 06:19 Baso # (Auto) 0.0 X10^3/uL (0.0-0.1) 10/23/21 06:19 Absolute Nucleated RBC 0.0 /100WBC 10/23/21 06:19 PT 13.5 SECONDS (11.8-14.3) 10/17/21 05:48 INR Target Range - 10/17/21 05:48 INR 1.06 (0.8-1.3) 10/17/21 05:48 APTT 25.3 SECONDS (22.9-36.5) 10/17/21 05:48 PTT Comment - 10/17/21 05:48 Sodium 135 mmol/L (136-145) L 10/23/21 04:40 Corrected Sodium 135 mmol/L (136-145) L 10/23/21 04:40 Potassium 3.8 mmol/L (3.5-5.1) 10/23/21 04:40 Chloride 104 mmol/L (98-107) 10/23/21 04:40 Carbon Dioxide 22.2 mmol/L (21-32) 10/23/21 04:40 BUN 1 mg/dL (7-18) L 10/23/21 04:40 Creatinine 0.45 mg/dL (0.55-1.02) L 10/23/21 04:40 Est GFR (MDRD) Af Amer > 60 (>60) 10/23/21 04:40 Est GFR (MDRD) Non-Af > 60 (>60) 10/23/21 04:40 Glucose 112 mg/dL (65-99) H 10/23/21 04:40 Calcium 8.8 mg/dL (8.5-10.1) 10/23/21 04:40 Corrected Calcium 10.2 mg/dL (8.5-10.1) H 10/23/21 04:40 Magnesium 1.7 mg/dL (1.7-2.9) 10/20/21 04:38 Total Bilirubin 0.30 mg/dL (0.2-1.0) 10/23/21 04:40 AST 16 Units/L (15-37) 10/23/21 04:40 ALT 15 Units/L (12-78) 10/23/21 04:40 Alkaline Phosphatase 70 Units/L (46-116) 10/23/21 04:40 Total Protein 5.8 g/dL (6.4-8.2) L 10/23/21 04:40 Albumin 2.3 g/dL (3.4-5.0) L 10/23/21 04:40 Globulin 3.5 g/dL (2.5-4.5) 10/23/21 04:40 Albumin/Globulin Ratio 0.7 Ratio (1.1-2.1) L 10/23/21 04:40 Triglycerides 123 mg/dL (0-150) 10/17/21 16:40 Cholesterol 150 mg/dL (0-200) 10/17/21 16:40 LDL Cholesterol, Calc 73 mg/dL (0-100) 10/17/21 16:40 HDL Cholesterol 52 mg/dL (40-60) 10/17/21 16:40 Cholesterol/HDL Ratio 2.9 (0.0-5.0) 10/17/21 16:40 Amylase 34 Units/L (25-115) 10/22/21 04:35 Lipase 222 Units/L (73-393) 10/22/21 04:35 Specimen Type Clean catch urine 10/20/21 08:40 Urine Color Pale yellow (YELLOW) 10/20/21 08:40 Urine Appearance Clear (CLEAR) 10/20/21 08:40 Urine pH 7.0 (5.0 - 8.0) 10/20/21 08:40 Ur Specific [place] 1.005 (1.000-1.030) 10/20/21 08:40 Urine Protein Negative (NEGATIVE) 10/20/21 08:40 Urine Glucose (UA) Negative (NEGATIVE) 10/20/21 08:40 Urine Ketones 4+ (NEGATIVE) 10/20/21 08:40 Urine Blood Negative (NEGATIVE) 10/20/21 08:40 Urine Nitrite Negative (NEGATIVE) 10/20/21 08:40 Urine Bilirubin Negative (NEGATIVE) 10/20/21 08:40 Urine Urobilinogen Normal (NORMAL) 10/20/21 08:40 Ur Leukocyte Esterase Negative (NEGATIVE) 10/20/21 08:40 Urine RBC 0-2 /HPF (0-3) 10/17/21 03:16 Urine WBC 0-2 /HPF (0-5) 10/17/21 03:16 Ur Squamous Epith Cells Rare /HPF (NEGATIVE) 10/17/21 03:16 Urine Bacteria Negative /HPF (NEGATIVE) 10/17/21 03:16 Ur Culture Indicated? No/not indicated 10/17/21 03:16 Urine Opiates Screen Negative (NEG=<300) 10/17/21 03:16 Urine Methadone Screen Negative (NEG=<300) 10/17/21 03:16 Ur Barbiturates Screen Negative (NEG=<200) 10/17/21 03:16 Ur Phencyclidine Scrn Negative (NEG=<25) 10/17/21 03:16 Ur Amphetamines Screen Negative (NEG=<1000) 10/17/21 03:16 U Benzodiazepines Scrn Negative (NEG=<200) 10/17/21 03:16 Urine Cocaine Screen Negative (NEG=<300) 10/17/21 03:16 U Marijuana (THC) Screen Negative (NEG=<50) 10/17/21 03:16 SARS-CoV-2 (PCR) Negative (NEGATIVE) 10/17/21 03:02 Hospital Course: Follow admission the patient continues to report epigastric pain. Her nausea and vomiting had improved the day after admission but she still having some. She was given Dilaudid for pain and she was asking for [id number] when it was due every 3 hours. She says she was not having her pain control slight change the interval to 2 hours with the Dilaudid. Her amylase and lipase had come down and they continue to trend down to normal level next few days. I can add to gastroenterology saw see her and they recommended n.p.o. October 20, [address] Kaminski and pain control IV fluid. As her pain did not subside much over the next few days I went ahead and consulted general surgery per Dr. Kaminski and he thought it may be her gallbladder causing her problems. Unfortunately we could not do a HIDA scan because our tech was only [place] and will be out for a week or more so in the meantime we will continue pain control IV fluid and n.p.o. We were able to advance her to a clear liquid diet and she tolerated it and on the morning of the we let her have some solid food and she tolerated it. Later on the day she was discharged home in stable condition. She will follow-up with me within a couple weeks for hospital follow-up. She will also be following up with Dr. Kwong general surgeon so he can get her scheduled for HIDA scan and possible cholecystectomy later on when she has some problem with her gallbladder causing her to have intermittent pancreatitis.
== END 2021-10-23 09:20 | disposition home or self-care (01) | DRG 440 ==
LOC: ER 01:09 → MED/SURG 04:10
PROVIDERS: ADMIT Family Medicine; ATTEND Family Medicine
DX: R10.84 Generalized abdominal pain; K85.90 Acute pancreatitis without necrosis or infection, unspecified; Z20.822 Contact with and (suspected) exposure to COVID-19; K21.9 Gastro-esophageal reflux disease without esophagitis; I10 Essential (primary) hypertension; R11.2 Nausea with vomiting, unspecified; K86.1 Other chronic pancreatitis; F41.8 Other specified anxiety disorders